=== PATIENT | female | born 1975 | race Hispanic/Latino ===

== ENCOUNTER 2024-02-24 07:26 | Day surgery (SDC) | payer OTHER ==
[2024-02-24 08:28] LABS: MPV 8.9 fL (7.6-11.3); Platelets 348 thou/uL (152-406)
[2024-02-24 08:32] LABS: PT Prothrombin Time 10.6 SECONDS (9.5-12.5); PTT, Activated Partial Thromb 31.1 SECONDS (24.3-36.9); Protime INR 0.96
[2024-02-24 08:33] VITALS: BMI 35.2
[2024-02-24] MEDS ORDERED: Ringers Lactate 1,000 ML IV ONE (08:44)
[2024-02-24 08:47] LABS: Urine Specific Gravity/Preg 1.015 (1.005-1.030)
[2024-02-24] MEDS ORDERED: FLUMAZENIL 0.1 MG/ML (5 mL VIAL) IV ONE (08:56)
[2024-02-24] MEDS ORDERED: MIDAZOLAM HCL 2 MG/2 ML INJ ONE (08:56)
[2024-02-24] MEDS ORDERED: FENTANYL CITR 100 MCG/2 ML ONE (08:57)
[2024-02-24] MEDS ORDERED: NALOXONE HCL 2 MG/2 ML VIAL ONE (08:57)
--- NOTE | 2024-02-24 13:20 | RAD REPORT ---
EXAM DESCRIPTION: RAD - Chest Single View - 02/24/2024 1:11 pm CLINICAL HISTORY: 2 HOURS POST LUNG BIOPSY Chest pain. COMPARISON: Lung Biopsy Perc w/CT dated 02/24/2024 FINDINGS: Portable technique limits examination quality. The lungs are grossly clear. No evidence of pneumothorax. The heart is normal in size. No displaced f ractures. IMPRESSION: No acute intrathoracic process suspected.
[2024-02-24 14:06] VITALS: BP 128/72; TEMP 97.2; O2SAT 100
--- NOTE | 2024-02-24 14:31 | RAD REPORT ---
EXAM DESCRIPTION: CT - Lung Biopsy Perc w/CT - 02/24/2024 11:18 am CLINICAL HISTORY: C50.812, R59.0, , Z78.3, I10 COMPARISON: Chest Single View dated 02/24/2024 FINDINGS: Preoperative diagnosis: Suspicious right lower lobe nodule. Post operative diagnosis: Same Conscious Sedation: 75 mcg fentanyl, and 0.5 milligram ever side were administered intravenously. Tot al sedation time: 1 hour. Patient was continuously monitored by nursing staff. Contrast used: NONE Estimated blood loss: less than 5 mL Specimens: As below The patient was placed in a supine position on the table and the upper right back area was prepped an d draped in the usual sterile fashion. 1% lidocaine was infiltrated into the subcutaneous tissues for local anesthesia. Under computed tomographic guidance, a 17 gauge introducer was advanced into the n odule, today measuring approximately 6 mm. Subsequently, an 18 gauge, 20 mm throw core biopsy gun was advanced into the lesion and 4 tissue cores were obtained. Sampling was technically challenging due to small size of the lesion. The introducer needle was removed following introduction of surgical foa m, to reduce the incidence of pneumothorax. Postprocedure imaging demonstrated trace anti dependent pneumothorax particularly in the lower chest. Samples were given to pathology for analysis. The patient tolerated the procedure without immediate complication and transferred to the recovery room in stable condition. Postprocedural radiographs wer e obtained to evaluate for the pneumothorax. IMPRESSION: Technically challenging but ultimately successful CT-guided biopsy of a small right lowe r lobe nodule. Trace under dependent pneumothorax along the lower chest was seen following the proced ure. All CT scans are performed using dose optimization technique as appropriate and may include automated exposure control or mA/KV adjustment according to patient size.
== END 2024-02-24 13:40 | disposition home or self-care (01) ==
LOC: DS 07:26
PROVIDERS: ATTEND Internal Medicine
PROC: 0BBF3ZX Excision of Right Lower Lung Lobe, Percutaneous Approach, Diagnostic (ICD-10-PCS; principal; 2024-02-24)
DX: R91.1 Solitary pulmonary nodule (principal); C50.812 Malignant neoplasm of overlapping sites of left female breast; R59.0 Localized enlarged lymph nodes; I10 Essential (primary) hypertension; Z80.3 Family history of malignant neoplasm of breast
CPT/HCPCS: 32408; 36415; 81025; 85049; 85610; 88305; 85730; 77012; 71045; J2250; J3010; J7120; J2310

== ENCOUNTER 2024-03-04 11:31 | Day surgery (SDC) | payer OTHER ==
[2024-03-03 14:24] LABS: Anion Gap 7.5 mEq/L (5.0-15.0); Potassium 3.5 mEq/L (3.5-5.1)
[2024-03-04] MEDS: Ringers Lactate 1,000 ML IV ONE (12:28)
[2024-03-04] MEDS ORDERED: MIDAZOLAM HCL 2 MG/2 ML INJ ONE (15:25)
[2024-03-04] MEDS ORDERED: FENTANYL CITR 100 MCG/2 ML ONE (15:25)
[2024-03-04] MEDS ORDERED: LIDOCAINE 1% MPF 5 ML VIAL ONE (15:25)
[2024-03-04] MEDS ORDERED: ONDANSETRON 4 MG/2 ML VIAL ONE (15:25)
[2024-03-04] MEDS ORDERED: propofoL 200 MG/20 ML VIAL IV ONE (15:25)
[2024-03-04] MEDS: CEFAZOLIN SODIUM 2 GM/VIAL ONE (16:57)
[2024-03-04] MEDS: BUPIVACAINE 0.25% PF 10 ML VIAL ONE (16:59)
[2024-03-04] MEDS: HEPARIN 5000 UNIT/ML 1 ML VIAL ONE (17:09)
--- NOTE | 2024-03-04 17:26 | P.OP ---
Preoperative diagnosis: Need for Chemotherapy Port Postoperative diagnosis: Need for Chemotherapy Port Primary procedure: Placement of Chemotherapy Port Secondary procedure: Ultrasound, Flouroscopy and microintroducer used Anesthesia: GETA + Local Estimated blood loss: <5cc Specimen: none Findings: Port @ confluence of SVC Complications: None Drain(s): Urinary catheter Implants: Bard Port a Cath Transferred to: Recovery Room Condition: Good
[2024-03-04 18:16] VITALS: O2SAT 97
--- NOTE | 2024-03-04 18:25 | RAD REPORT ---
EXAM DESCRIPTION: [place] Single View03/04/2024 6:11 pm CLINICAL HISTORY: Device placement/central venous catheter placement IMPRESSION: Central venous catheter with its tip in the superior vena cava No pneumothorax
--- NOTE | 2024-03-04 18:46 | RAD REPORT ---
EXAM DESCRIPTION: RAD - Fluoroscopy <1 Hour - 03/04/2024 6:29 pm CLINICAL HISTORY: Device placement central venous catheter placement FINDINGS: A central venous catheter was placed into the superior vena cava. 15 fluoroscopic spot im ages are submitted. Fluoroscopy time .2 minutes The examination was performed by Dr. Landin
[2024-03-04 18:59] VITALS: BP 111/79; TEMP 96.9
[2024-03-04] MEDS: HYDROCODONE/APAP 7.5/325 MG TAB ONE (19:00)
--- NOTE | 2024-03-05 04:29 | OP ---
Date of Procedure: 03/04/2024 Surgeon: Karlos Landin MD, Preoperative Diagnosis: Need for chemotherapy. Postoperative Diagnosis: Need for chemotherapy. Procedure Performed: Placement of chemotherapy port using ultrasound and fluoroscopic guidance with a micro introducer set into right internal jugular vein. Anesthesia: General endotracheal plus local 0.25% Marcaine without epinephrine. Estimated Blood Loss: Less than 5 cc. Specimens: None. Findings: Was located at the confluence of superior vena cava and the port was placed. Complications: None. Implants: Bard Port-A-Cath. Disposition: The patient was transferred to recovery room in good condition. Brief History Of Present Illness: The patient is a 48-year-old female, who was noted to have a recen t diagnosis of breast cancer. As such, we discussed preoperative chemotherapy with the Oncology Team and as such, the patient has opted to initiate neoadjuvant chemotherapy. Procedure In Detail: After informed consent was obtained, the patient was brought to the operating r oom, prepped and draped in the usual sterile fashion. After adequate anesthesia was achieved, the pa tient was placed in steep Trendelenburg position. I used ultrasound guidance to interrogate the righ t internal jugular vein, was found to be patent, and a good location for placement of the catheter. I cannulated the right internal jugular vein after anesthetizing skin appropriately with a micro intr oducer needle at this point under direct visualization and using ultrasound guidance. At this point, the microwire was advanced into the confluence of superior vena cava. I then made a small chase inci ap overlying the insertion site after the fluoroscopic guidance confirmed the confluence of the SVC with microwire tip. The micro introducer sheath was placed. At this point, I confirmed position on ce again under fluoroscopic guidance and removed the microwire and advanced the standard wire into th e right atrium. This was once again confirmed using fluoroscopic guidance. At this point, the melvin ter wire was secured and I located the spot on the chest wall on the right infraclavicular position a nd anesthetized the skin including the entire tract to the insertion site using 0.25% Marcaine withou t epinephrine. I then made an incision overlying the skin and dissected down to the prepectoral fasc ia removing adipose tissue to allow for access to the port. At this point, I used a tunneling device to bring the port into the insertion site and using a tunneling device without evidence of complicat ion. I then placed the introducer sheath after sequential dilatation under fluoroscopic guidance usi barbara Seldinger technique. I then placed the introducer sheath after the microwire introducer sheath wa s removed and placed the catheter into the introducer sheath removing the sheath at this point under fluoroscopic guidance. I then pulled back the catheter to the confluence of the SVC under fluoroscop ic guidance. At this point, I attached the lock collar around the catheter at the chest wall site an d secured the catheter to this point using the lock collar to secure it. At this point, it flushed q uite easily. Fluoroscopic guidance once again was confirmed with good position of the catheter in th e subcutaneous port. At this point, the subcutaneous port was attached to the chest wall at the prep ectoral fascia using interrupted 2-0 Prolene sutures and the area was copiously irrigated at this poi nt and suctioned out to complete dry. At this point, I packed the catheter with heparin super flush with good results. At this point, the patient was taken out of steep Trendelenburg position. The de ep dermal planes were closed using interrupted 3-0 Vicryl sutures. Skin was closed with a 4-0 Monocr yl in a running fashion and Dermabond placed over top. I also closed the insertion site with a singl e interrupted 3-0 nylon suture and a sterile dressing placed over top. The patient tolerated the pro cedure without incident or complication and transferred to PACU in good condition. All counts were correct at the end of the case. DIONE/ALEJANDRAL Voice ID: [id number] Report ID: [id number]
--- NOTE | 2024-03-07 13:31 | EKG ---
Test Date: 2024-03-03 Test Time: 13:44:06 Java Tech Lead: CAPRICE MEASUREMENT RESULTS: Intervals: Rate: 64 NE: 168 QRSD: 88 QT: 440 QTc: 453 [place]: P: 35 NE: 168 QRS: -3 T: 14 INTERPRETIVE STATEMENTS: Normal sinus rhythm Normal ECG No previous ECG available for comparison Electronically Signed On 03-07-24 13:20:15 CDT by Gal Maldonado
== END 2024-03-04 19:15 | disposition home or self-care (01) ==
LOC: OR 11:31
PROVIDERS: ATTEND Surgery
PROC: 0JH60WZ Insertion of Totally Implantable Vascular Access Device into Chest Subcutaneous Tissue and Fascia, Open Approach (ICD-10-PCS; principal; 2024-03-04 14:45)
DX: C50.912 Malignant neoplasm of unspecified site of left female breast (principal); C50.412 Malignant neoplasm of upper-outer quadrant of left female breast; C50.612 Malignant neoplasm of axillary tail of left female breast; I10 Essential (primary) hypertension
CPT/HCPCS: 93005; 80048; 36415; 84703; 71045; 76000; 36561; J1644 ×2; J2704; J2001; J2250; J3010; J2405; J7120; C1788

== ENCOUNTER 2024-10-12 08:58 | Day surgery (SDC) | payer OTHER ==
[2024-10-07 14:20] LABS: PTT, Activated Partial Thromb 35.1 SECONDS (24.3-36.9); Protime INR 1.17
[2024-10-12] MEDS: Ringers Lactate 1,000 ML IV ONE ×4 (09:40→19:09)
[2024-10-12 10:30] LABS: Absolute Eosinophils 0.1 K/uL (0-0.5); Absolute Lymphocytes (CBC) 1.6 K/uL (0.7-4.9); Absolute Monocytes 0.4 K/uL (0.1-1.3); Absolute Neutrophil 1.7 K/uL (1.8-8.0); Basophils % 0.3 % (0-1.3); Eosinophils % 2.5 % (0-4.4); Hematocrit 40.5 % (36.0-45.0); Hemoglobin 13.8 g/dL (12.0-15.0); Lymphocytes % 42.6 % (15.3-44.8); MCH 29.8 pg (27.0-35.0); MCHC 34.1 g/dL (32.0-36.0); MCV 87.4 fL (80-100); MPV 9.2 fL (7.6-11.3); Monocytes % 9.8 % (3.3-12.3); Neutrophils % 44.8 % (41.7-73.7); Nucleated Red Blood Cells % 0.5 % (0-0); Platelets 321 thou/uL (152-406); RBC Red Blood Cell Count 4.64 M/uL (3.86-4.86); Red Cell Distribution Width 13.1 % (12.1-15.2)
[2024-10-12] MEDS ORDERED: dexAMETHasone 10 MG/ML VIAL ONE ×2 (11:12→12:10)
[2024-10-12] MEDS ORDERED: BUPIVACAINE 0.5% PF 10 ML VIAL ONE (11:12)
[2024-10-12] MEDS ORDERED: MIDAZOLAM HCL 2 MG/2 ML INJ ONE (11:12)
[2024-10-12] MEDS ORDERED: EPINEPHRINE 1 MG/ML VIAL ONE (11:12)
[2024-10-12] MEDS ORDERED: FENTANYL CITR 100 MCG/2 ML ONE ×3 (11:12→16:58)
[2024-10-12] MEDS ORDERED: LIDOCAINE 1% MPF 5 ML VIAL ONE (11:12)
[2024-10-12] MEDS ORDERED: BUPIVACAINE 0.25% PF 30 ML VIAL ONE (11:13)
[2024-10-12] MEDS ORDERED: propofoL 200 MG/20 ML VIAL IV ONE (11:46)
[2024-10-12] MEDS ORDERED: LIDOCAINE 2% MPF 5 ML VIAL ONE ×2 (11:47→12:10)
[2024-10-12] MEDS ORDERED: ROCURONIUM 50 MG/5 ML VIAL IV ONE (11:47)
[2024-10-12] MEDS ORDERED: DEXMEDETOMIDINE HCL 200 MCG/2 ML VIAL ONE (11:51)
[2024-10-12] MEDS ORDERED: MAGNESIUM SULFATE 1 gm IVPB 1 GM/100 ML BAG IV ONE (11:51)
[2024-10-12] MEDS: CEFAZOLIN SODIUM 2 GM/VIAL ONE (11:51)
[2024-10-12] MEDS ORDERED: SUCCINYLCHOLINE 20 MG/ML (10 ML) IV ONE (11:52)
[2024-10-12] MEDS ORDERED: KETOROLAC 30 MG/ML INJ ONE (12:10)
[2024-10-12] MEDS ORDERED: KETAMINE HCL IN 0.9 % NACL 50 MG/5 ML SYRINGE IV ONE (12:10)
[2024-10-12] MEDS ORDERED: ONDANSETRON 4 MG/2 ML VIAL ONE (12:10)
[2024-10-12] MEDS: LIDOCAINE HCL/EPINEPHRINE 20 ML MDV ONE (12:29)
[2024-10-12] MEDS ORDERED: Phenylephrine HCl 10 MG/ML 1 ML VIAL ONE (14:14)
--- NOTE | 2024-10-12 17:50 | P.OP ---
Preoperative diagnosis: LEFT Biopsy Proven Breast Cancer Postoperative diagnosis: LEFT Biopsy Proven Breast Cancer Primary procedure: LEFT Modified Radical Mastectomy Secondary procedure: RIGHT Simple / Complete Mastectomy Anesthesia: GETA + Regional Estimated blood loss: 50cc Specimen: LEFT Breast with Axillary Contents, additional node, RIGHT Breast Findings: Palpable nodes in groove between thoracodorsal / long thoracic - adherant Complications: None Drain(s): LAKEISHA drain (10mm Flat - bilateral) Transferred to: Recovery Room Condition: Good
[2024-10-12] MEDS: HYDROMORPHONE HCL 1 MG/ML INJ ONE (18:40)
[2024-10-12 18:43] VITALS: O2SAT 98
[2024-10-12 19:27] VITALS: BP 111/78; TEMP 97.3
[2024-10-12] MEDS ORDERED: HYDROCODONE/APAP 10/325 TAB ONE (19:30)
[2024-10-12] MEDS: HYDROCODONE/APAP 10/325 TAB PO ONE (20:00)
[2024-10-12] MEDS: ONDANSETRON 4 MG/2 ML VIAL ONE (20:08)
--- NOTE | 2024-10-12 23:35 | OP ---
Date of Procedure: 10/12/2024 Surgeon: Karlos Landin MD, Preoperative Diagnosis: Left biopsy-proven breast cancer. Postoperative Diagnosis: Left biopsy-proven breast cancer. Procedures Performed: 1.Left modified radical mastectomy. 2.Right simple/complete mastectomy. Anesthesia: General endotracheal plus regional. Estimated Blood Loss: Approximately 50 cc. Specimens: 1.Left breast with axillary contents. 2.An additional lymph node from the left axilla adjacent to the long thoracic nerve. 3.Left breast. Findings: 1.Palpable lymph nodes in the groove between the thoracodorsal and the long thoracic nerve were evid ent with palpable enlarged lymph nodes with significant adhesions to the groove and to these nervous structures. 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 The cephalic vein was visualized as well as a branch coming off somewhat more proximally than usual anatomic descriptions. Complications: None immediate. Drains: 10 mm flat LAKEISHA drain placed bilaterally. Disposition: The patient was transferred to recovery room in good condition. Procedure In Detail: After informed consent was obtained, the patient was brought to the operating r oom, and prepped and draped in the usual sterile fashion after adequate anesthesia was achieved. I p remarked the patient's breast following the borders of the clavicle, the lateral sternal border, the latissimus dorsi as well as the inframammary crease. In addition, I made teardrop type bilateral inc isions with somewhat a slight extension on the left breast to include the axillary contents and also to include the previous breast mass. After this was demarcated, I made an incision through the left breast initially down through the subcutaneous tissues using a 10 blade circumferentially around the area to dissect out skin flaps. At this point, I dissected out starting superiorly on the left breas t to elevate the superior skin flap, which extended all the way to the inferior border of the clavicl e. I then extended it somewhat medially to lateral to the edge of the sternal border and ultimately moved inferiorly circumferentially around to the border of the rectus muscle at the confluence of the pectoralis rectus confluence. At this point, I also dissected laterally to the latissimus muscle. I then continued the dissection circumferentially removing the breast from the superior aspect and mo ving medially to remove the breast off the medial aspect, and the superior aspect, and the inferior a spect ultimately draping the breast over to allow me to dissect along the lateral border of the pecto ralis major muscle and along the border of the pectoralis minor muscle. I dissected through the clav ipectoral fascia, ultimately into the axillary fascia, and dissected free the space between the pecto ralis major and pectoralis minor. I palpated this area, where Selvin nodes exist and they were not p alpable at this point. As such, I continued to dissect down in the posterior aspect of the pectorali s minor muscle ultimately moving cranially to identify the axillary vein. Interestingly, the axillar y vein had a somewhat unusual presentation and as such, I dissected circumferentially slightly above this to encounter an additional vein, which I dissected back to discover that this was in fact an add itional axillary vein. I stayed on the inferior border of the axillary vein at this point and came a nteriorly to discover the cephalic vein takeoff on the proximal aspect near the coracoid process. Th e level 3 nodes were palpated in this area. I did not palpate any pathologic disease at this point, and as such I only removed a small portion of the fat of this area, so that I could inspect it proper ly, off this ligament was identified at this point, but I did not see any pathologic findings in the level 3 nodes and thus, as such, I chose to stay inferior to the branches of the axillary vein at thi s point. As the patient had a duplicated axillary vein, the thoracodorsal neurovascular bundle appea red to come off the superior branch of the axillary vein rather than the inferior branch. As such, I had to dissect between this plane to allow for visualization of approximately 4 tributaries and the thoracodorsal neurovascular bundle, which was traveling down in this aspect. As I dissected circumfe rentially around this using predominantly blunt dissection with minimal electrocautery, I used the ne rve stimulator device to ensure I ran the entire course of the thoracodorsal neurovascular bundle to ensure its innervation was intact throughout the entire procedure. In addition, when I moved mediall y to the chest wall, I inspected the area and ultimately found the long thoracic in this area. I use d the nerve stimulator also to verify its course and allow for visualization of this. I left the pre pectoral fascia only on the chest wall in this area, but the adipose tissue was swept down. As I con tinued from cranially to caudally removing the axillary contents, including lymph nodes, I palpated s ome enlarged lymph nodes and as I moved down on top of the subscapularis muscle, I encountered an enl arged lymph node, which sat in between the thoracodorsal neurovascular bundle and the long thoracic n erve. There was some adherence to these tissues, which required meticulous dissection as they were i n very close apposition and could not be easily for some reason. As such, I spent an amoun t of time using the nerve stimulator to ensure that the dissection continued without injury to the ne rve and the nerve remained intact through its course, as I was able to get this tissue out. After I teased out all the tissue and exposed, space between the thoracodorsal neurovascular bundle and long thoracic nerve was visualized with the subscapularis muscle visualized in the field. I dissected to move the axillary contents down. I moved laterally around the thoracodorsal neurovascular bundle as there was some palpable region in this area too. Uncertain if there were axillary lymph nodes positi ve in this region. As such, I took an additional amount of this tissue all the way to the edge of la tissimus dorsi. As I dissected down, I moved down to remove all of the axillary contents at this poi nt using meticulous dissection. Hemostasis was achieved predominantly after skeletonizing tributarie s off the axillary vein as described using the LigaSure device and ultimately removed the breast in i ts entirety, including the axillary contents attached to this area; however, as I was removing this, there was 1 palpable possible lymph node versus fat globule, which was still adherent to the long tho racic nerve and as such, once again, I performed meticulous dissection of this and sent this as a sep arate specimen. The area was copiously irrigated and all adipose tissue was suctioned out on top usi ng the suction device, and she required minimal hemostasis at this point, I inspected the area and us ed the neurostimulator to once again verify the activity of the nerves, which appeared to be intact a t this point. The medial branch of the pectoral nerve was protected throughout in addition, and the pectoralis muscle had good stimulation using the nerve stimulator as well as all other structures inv olved. As I completed the portion, I then made a separate stab incision in the posterior axilla and brought in a 10 mm flat LAKEISHA drain into the surgical field through the axilla and on the pectoralis inf erior aspect at this point. I secured using a 3-0 nylon and ultimately irrigated the area once again , suctioned out to completely dry, and dried the area and removed all floating adipose tissue at this point, which was minimal at this point. I then inspected for hemostasis, which was achieved. I the n closed the deep dermal plane using interrupted 3-0 Vicryl sutures and the skin was closed with a 4- 0 Monocryl in a running fashion. Dermabond was placed over the top. I then turned my attention to t he other side, which would be the right breast at this point. I re-gowned and gloved at this point, and all instruments were changed at this point. I had the previous markings as previously described and following a teardrop type elliptical incision made a similar skin flap cut using a 10 blade down to the right breast, down to the subcutaneous tissues, ultimately raising the superior flap. There w as a Port-A-Cath in place, which I had left in place as I dissected underneath this plane ultimately leaving a small island of prepectoral fascia for the Port-A-Cath in this place. I dissected superior ly to the clavicle, medial to the border of the sternum, inferiorly to the confluence of the rectus, and pectoralis major muscle wall sparing the inframammary crease and ultimately laterally to the lati ssimus dorsi. After the breast tissue was ligated staying out of the axillary plane and the axillary fascia, which was spared at this point. I then sent the breast off for pathologic examination. Donya hernández stitches were placed prior to removal of both breast contents as they were sent off for patholog ic examination. The area on the right breast was then copiously irrigated. Hemostasis was achieved with minimal electrocautery. In addition, a 10 mm flat LAKEISHA drain was brought in, in a similar fashion through a separate stab incision in the lateral aspect, ultimately bringing it into the breast field . I then closed the deep dermal plane using interrupted 3-0 Vicryl sutures. Skin was closed with a 4-0 Monocryl in a running fashion. Dermabond placed over top. The patient had a drain stitch placed previous to closure, which is a 3-0 nylon additionally. Sterile dressing was then applied after the polymerization of the Dermabond had occurred and a sterile dressing applied. The patient tolerated the procedure without incident or complication, and transferred to PACU in good condition. All counts were correct at the end of the c ase. DIONE/APRIL Voice ID: [id number] Report ID: [id number]
--- NOTE | 2024-10-13 11:40 | EKG ---
Test Date: 2024-10-07 Test Time: 14:22:22 Pencil Maker: LISA MEASUREMENT RESULTS: Intervals: Rate: 107 [place]: 160 QRSD: 88 QT: 388 QTc: 517 [place]: P: 57 [place]: 160 QRS: 35 T: 50 INTERPRETIVE STATEMENTS: Sinus tachycardia Low voltage QRS Borderline ECG Compared to ECG 03/03/2024 13:44:06 Low QRS voltage now present Sinus rhythm no longer present Electronically Signed On 10-13-24 11:38:54 STUDENT RECRUITER by Dm Flaherty
== END 2024-10-12 21:00 | disposition home or self-care (01) ==
LOC: OR 08:58
PROVIDERS: ATTEND Surgery
PROC: 07T60ZZ Resection of Left Axillary Lymphatic, Open Approach (ICD-10-PCS; 2024-10-12)
PROC: 0HTT0ZZ Resection of Right Breast, Open Approach (ICD-10-PCS; 2024-10-12)
PROC: 0HTU0ZZ Resection of Left Breast, Open Approach (ICD-10-PCS; principal; 2024-10-12 12:00)
DX: C77.3 Secondary and unspecified malignant neoplasm of axilla and upper limb lymph nodes (principal); C50.912 Malignant neoplasm of unspecified site of left female breast; N60.22 Fibroadenosis of left breast
CPT/HCPCS: 19307; 19303; 93005; 85025; 80048; 36415 ×2; 86900; 86850; 84703; 85610; 86901; 88305; 88307; 85730; J3475; J2704; J2003 ×3; J2371; J2250; J3010 ×3; J1100 ×2; J0171; J1171; J2405 ×2; J7120 ×4

== ENCOUNTER 2025-07-16 21:34 | Emergency (ER) | payer MEDICAID, OTHER ==
--- OUTSIDE RECORDS SUMMARY | 2025-07-16 21:46 | XMS REPORT | Continuity of Care Document ---
Author Name Unknown Address [address] [place] [address] [facility] Address [address] [place] [address] Care Team Providers Care Value Stream Manager Name Role Phone Maryam Riley Primary Care Physician HANNAH MOSELEY Attending Clinician Unavailable HANNAH MOSELEY Attending Clinician Unavailable MENDOZA GO Attending Clinician Unavailable Pcp-Lab Attending Clinician Unavailable Hannah Moseley PA-C Attending Clinician Mendoza Go MD Attending Clinician [phone] RADIOLOGY Attending Clinician Unavailable BLAKE CHANDLER Attending Clinician Unavailable JAVIER CISNEROS Attending Clinician UnavailJAVIER Langford Attending Clinician Unavaildavin cantor Radiology Attending Clinician Unavailable Javier Cisneros MD Attending Clinician [phone] [facility] Attending Clinician Unavaila sakshi Doctor Unassigned, [place] Attending Clinician U navailDONTAE Elmore Attending Clinician Unavailable Dontae Lopez Attending Clinician [phone] DENICE PENA Attending Clinician UnavailSIMONA Mcclendonitting Clinician Unavailable Payers Payer Name Policy Type Policy Number Effective Date Expirati on Date Source FORMERLY [facility] [id number] 2024 00:00:00 MEDICAID PENDING PENDING 2022 00:00:00 Problems Condition Name Condition Details Condition Category Status Onset Date Resolution Date Last Treatment Date Treating Clinician Comments Source ISABEL (obstructi ve sleep apnea) ISABEL (obstructi ve sleep apnea) Disease Active 2-24 00:00: 00 [facility] Tachycardi a Tachycardi a Disease Active 11-09 00:00: 00 [facility] Primary hypertensi on Primary hypertensi on Disease Active 11-09 00:00: 00 [facility] Obesity (BMI 30-39.9) Obesity (BMI 30-39.9) Disease Active 11-09 00:00: 00 [facility] Malignant neoplasm of female breast, unspecifie d estrogen receptor status, unspecifie d laterality , unspecifie d site of breast Malignant neoplasm of female breast, unspecifie d estrogen receptor status, unspecifie d laterality , unspecifie d site of breast Disease Active 11-09 00:00: 00 [facility] No known active problems No known active problems Disease [facility] Allergies, Adverse Reactions, Alerts Allergy Name Allergy Type Status Severity Reaction(s) Onset Date Inactive Date Treating Clinician Comments Source NO KNOWN ALLERGIE S Drug Class Active [facility] Social History Social Habit Start Date Stop Date Quantity Comments Source ASSERTION Not [facility] use and exposure 2024-11-09 00:00:00 2024-11-09 00:00:00 Smokeless tobacco non-user [facility] History of Social function 2024-11-09 00:00:00 2024-11-09 00:00:00 [facility] Exposure to SARS-CoV-2 (event) 2022-05-19 00:00:00 2022-05-29 19:46:00 Not sure [facility] Sex assigned at 1975 00:00:00 1975 00:00:00 [facility] Smoking Status Start Date Stop Date Source Tobacco smoking consumption unknown [facility] Never smoked tobacco [facility] Medications Ordered Medication Name Filled Medication Name Start Date Stop Date Current Medication? Ordering Clinician Indication Dosage Frequency Signature (SIG) Comments Components Source mirtazapine 7.5 mg tablet 7-06 00:00: 00 Yes 7.5mg Take 1 tablet by mouth in the morning. [facility] propranoloL 40 mg tablet 6-20 00:00: 00 Yes 80mg Take 2 tablets by mouth in the morning and 2 tablets in the evening. [facility] hydroCHLORO thiazide 25 mg tablet 0 6-10 00:00: 00 Yes [id number] 25mg Take 1 tablet by mouth in the morning. [facility] propranoloL 40 mg tablet 10 00:00: 00 04-13 00:00 :00 No 80mg Take 2 tablets by mouth in the morning and 2 tablets in the evening. [facility] levothyroxi ne 50 mcg tablet - 00:00: 00 Yes 50ug Take 1 tablet by mouth every morning. [facility] lisinopriL (ZESTRIL) 40 mg tablet 530 00:00: 00 Yes [id number] 20mg Take 0.5 tablets by mouth in the morning and 0.5 tablets in the evening. [facility] propranoloL 40 mg tablet -30 00:00: 00 04-04 00:00 :00 No 40mg Take 1 tablet by mouth in the morning and 1 tablet in the evening. [facility] lisinopril 20 mg tablet 0 5-15 00:00: 00 Yes 1mg Devang Brown lisinopriL (ZESTRIL) 20 mg tablet 29 00:00: 00 03-24 00:00 :00 No 20mg Take 1 tablet by mouth in the morning and 1 tablet in the evening. [facility] lisinopriL (ZESTRIL) 10 mg tablet - 00:00: 00 02-21 00:00 :00 No [id number] 10mg Take 1 tablet by mouth in the morning and 1 tablet in the evening. [facility] lisinopriL (ZESTRIL) 10 mg tablet 2024- 4-18 00:00: 00 02-14 00:00 :00 No [id number] 10mg Take 1 tablet by mouth in the morning and 1 tablet in the evening. [facility] megestroL 400 mg/10 mL (40 mg/mL) suspension 3- 00:00: 00 07-12 00:00 :00 No 400mg Take 10 mL by mouth in the morning. [facility] metoprolol tartrate 25 mg tablet 12-19 00:00: 00 03-24 00:00 :00 No [id number] 25mg Take 1 tablet by mouth in the morning and 1 tablet in the evening. [facility] lisinopriL (ZESTRIL) 5 mg tablet 12-19 00:00: 00 02-10 00:00 :00 No [id number] 5mg Take 1 tablet by mouth in the morning. [facility] tc 99m-medrona te (DRAXIMAGE MDP-25) injection 27.7 millicurie 12-14 16:45: 00 12-14 19:47 :00 No [id number] 27.7mCi 27.7 millicurie , Intravenou s, ONCE, 1 dose, On Thu12/14/24 at 1045, Routine [facility] ergocalcife rol, vitamin d2, 1,250 mcg (50,000 unit) capsule 12-14 00:00: 00 07-12 00:00 :00 No [facility] gabapentin 300 mg capsule 2 00:00: 00 07-12 00:00 :00 No 300mg Take 1 capsule by mouth in the morning and 1 capsule in the evening. [facility] anastrozole 1 mg tablet 2- 00:00: 00 Yes 1mg Devang Susan Brown metoprolol tartrate 25 mg tablet 2- 00:00: 00 Yes 1mg Devang Susan Brown gabapentin 300 mg capsule 2-10 00:00: 00 Yes 1mg Devang Susan Kevin anastrozole 1 mg tablet 1-29 00:00: 00 Yes 1mg Take 1 tablet by mouth daily [facility] gabapentin 100 mg capsule 11-23 00:00: 00 07-12 00:00 :00 No 100mg Take 1 capsule by mouth in the morning and 1 capsule in the evening. [facility] metoprolol tartrate 25 mg tablet 11-17 14:53: 21 11-17 00:00 :00 No 25mg Take 1 tablet by mouth in the morning and 1 tablet in the evening. [facility] metoprolol tartrate 25 mg tablet 11-17 00:00: 00 12-12 00:00 :00 No [id number] 25mg Take 1 tablet by mouth in the morning and 1 tablet in the evening. [facility] lisinopriL- hydrochloro thiazide 10-12.5 mg per tablet -15 14:27: 40 12-19 00:00 :00 No 1{tbl} Take 1 tablet by mouth in the morning. [facility] gabapentin 100 mg capsule 2023-10 00:00: 00 Yes 1mg Devang Brown lisinopril 10 mg-hydrochl orothiazide 12.5 mg tablet 2023-1018 00:00: 00 Yes 1mg Devang Brown DEXAMETHASO NE 4 MG 03-02 00:00: 00 Yes Devang Brown ONDANSETRON ODT 4 MG TABLET,DISI NTEGRATING 03-02 00:00: 00 Yes Devang Brown TAKE 2 TABLETS BY MOUTH ON DAY 1, THEN 1 TABLET DAILY ON DAYS 2 TO 5. 02-15 00:00: 00 Yes Devang Brown TAKE ONE (1) TO 2 TABLETS BY MOUTH EVERY 6 HOURS NEEDED FOR PAIN. 02-15 00:00: 00 Yes Devang Brown SWISH AND SPIT HALF AN OUNCE BY MOUTH TWICE A DAY FOR THIRTY SECONDS. DO NOT EAT OR RINSE MOUTH OUT IMMEDIATELY AFTER USE. 02-14 00:00: 00 Yes Devang Brown lisinopril 10 mg-hydrochl orothiazide 12.5 mg tablet 2024-0 3-05 00:00: 00 Yes 1mg Devang Brown TAKE 1 TABLET BY MOUTH ONCE DAILY 9-18 00:00: 00 Yes Devang Brown TAKE DIRECTED 7-11 00:00: 00 Yes Devang Brown TAKE 1 TABLET DAILY. 5-02 00:00: 00 03-09 00:00 :00 No [id number] Devang Brown TAKE 1 TABLET DAILY. 2-08 00:00: 00 03-09 00:00 :00 No [id number] Devang Brown TAKE 1 TABLET DAILY. 2021-10 1-10 00:00: 00 03-09 00:00 :00 No [id number] Devang Brown TAKE 1 TABLET DAILY. 2021-10 1-09 00:00: 00 03-09 00:00 :00 No [id number] Devang Brown TAKE 1 TABLET BY MOUTH ONCE DAILY 2021-10 0 00:00: 00 Yes Devang Brown TAKE 1 TAB BY MOUTH DAILY. TAKE THE FIRST 3 ROWS, SKIPPING THE LAST ROW FOR 2 PACKS. TAKE THIRD PACK DIRECTED. 2021-1014 00:00: 00 03-09 00:00 :00 No [id number] Devang Brown TAKE 1 TABLET BY MOUTH ONCE DAILY -12 00:00: 00 03-09 00:00 :00 No Devang Brown TAKE 1 TABLET BY MOUTH ONCE DAILY 18 00:00: 00 Yes Devang Brown TAKE 1 TABLET TWICE DAILY WITH MEALS 05 00:00: 00 Yes [id number] Devang Brown TAKE 1 TAB BY MOUTH DAILY. TAKE THE FIRST 3 ROWS, SKIPPING THE LAST ROW FOR 2 PACKS. TAKE THIRD PACK DIRECTED. -05 00:00: 00 Yes Devang Brown No known medications 04 18:34: 19 No No known medication s [facility] TAKE 1 TABLET TWICE DAILY WITH MEALS - 00:00: 00 Yes [id number] Devang Brown TAKE 1 TABLET BY MOUTH EVERY 8 HOURS 17 00:00: 00 Yes Devang Brown TAKE 10 ML BY MOUTH EVERY 8 HOURS NEEDED 03-11 00:00: 00 Yes Devang Brown TAKE 2 TABLETS BY MOUTH ON DAY 1, AND THEN TAKE 1 TABLET BY MOUTH ONCE A DAY ON DAY 2 THROUGH DAY 5 03-11 00:00: 00 Yes Devang Brown lisinopril 10 mg tablet 2020-10 00:00: 00 Yes 1mg Devang Brown Vital Signs Vital Name Observation Time Observation Value Comments S ource Systolic blood pressure 2025-07-12 14:03:00 129 mm[Hg] [facility] Diastolic blood pressure 2025-07-12 14:03:00 89 mm[Hg] [facility] Heart rate 2025-07-12 14:03:00 70 /min Unive [facility] Body temperature 2025-07-12 14:03:00 36.28 Lois [facility] Respiratory rate 2025-07-12 14:03:00 18 /min [facility] Body height 2025-07-12 14:03:00 162.6 cm [facility] Body weight 2025-07-12 14:03:00 69.809 kg [facility] BMI 2025-07-12 14:03:00 26.42 kg/m2 [facility] Oxygen saturation in Arterial blood by Pulse oximetry 2025-07-12 14:03:00 96 /min [facility] Systolic blood pressure 2025-01-16 17:57:00 133 mm[Hg] [facility] Diastolic blood pressure 2025-01-16 17:57:00 88 mm[Hg] [facility] Heart rate 2025-01-16 17:57:00 72 /min Unive [facility] Respiratory rate 2025-01-16 17:57:00 16 /min [facility] Body height 2025-01-16 17:57:00 162.6 cm [facility] Body weight 2025-01-16 17:57:00 82.373 kg [facility] BMI 2025-01-16 17:57:00 31.17 kg/m2 Univ [facility] Oxygen saturation in Arterial blood by Pulse oximetry 2025-01-16 17:57:00 97 /min [facility] Systolic blood pressure 2024-12-19 19:50:00 127 mm[Hg] [facility] Diastolic blood pressure 2024-12-19 19:50:00 87 mm[Hg] [facility] Heart rate 2024-12-19 19:50:00 89 /min [facility] 2024-12-19 19:50:00 162.6 cm [facility] Body weight 2024-12-19 19:50:00 84.142 kg [facility] BMI 2024-12-19 19:50:00 31.84 kg/m2 [facility] O[facility] saturation in Arterial blood by Pulse oximetry 2024-12-19 19:50:00 97 /min [facility] Systolic blood pressure 2024-11-30 21:02:00 124 mm[Hg] [facility] Diastolic blood pressure 2024-11-30 21:02:00 88 mm[Hg] [facility] Body height 2024-11-30 20:57:00 162.6 cm [facility] Body weight 2024-11-30 20:57:00 89.54 kg Univ [facility] BMI 2024-11-30 20:57:00 33.88 kg/m2 [facility] Oxygen saturation in Arterial blood by Pulse oximetry 2024-11-30 20:57:00 97 /min [facility] Heart rate 2024-11-30 20:57:00 87 /min [facility] Res[facility] rate 2024-11-30 20:57:00 16 /min [facility] Systolic blood pressure 2024-11-09 20:22:00 115 mm[Hg] [facility] Diastolic blood pressure 2024-11-09 20:22:00 80 mm[Hg] [facility] Heart rate 2024-11-09 20:22:00 117 /min [facility] Body height 2024-11-09 20:22:00 165.1 cm [facility] Body weight 2024-11-09 20:22:00 92.307 kg [facility] BMI 2024-11-09 20:22:00 33.86 kg/m2 [facility] Oxygen saturation in Arterial blood by Pulse oximetry 2024-11-09 20:22:00 98 /min [facility] Systolic blood pressure 2022-05-30 00:47:18 150 mm[Hg] [facility] Diastolic blood pressure 2022-05-30 00:47:18 99 mm[Hg] [facility] Heart rate 2022-05-30 00:47:18 76 /min [facility] Respiratory rate 2022-05-30 00:47:18 18 /min [facility] Oxygen saturation in Arterial blood by Pulse oximetry 2022-05-30 00:47:18 98 /min [facility] Body temperature 2022-05-29 23:30:00 37.5 Lois [facility] Body height 2022-05-29 23:30:00 165.1 cm [facility] Body weight 2022-05-29 23:30:00 117.482 kg [facility] BMI 2022-05-29 23:30:00 43.10 kg/m2 [facility] BP Systolic 2025-03-14 17:11:00 148 mm[Hg] Step hen F Kevin BP Diastolic 2025-03-14 17:11:00 93 mm[Hg] Kris phen F Kevin Weight Measured 2025-03-14 17:11:00 177.00 pounds Devang F Kevin Height Measured 2025-03-14 17:11:00 65.00 inches Devang F Kevin Body Temperature 2025-03-14 17:11:00 97.60 degrees Devang F Kevin Heart Rate 2025-03-14 17:11:00 98.00 /min Demetrice en F Kevin Respiratory Rate 2025-03-14 17:11:00 18.00 /min Devang F Kevin BP Systolic 2025-03-09 09:47:00 150 mm[Hg] Step hen F Kevin BP Diastolic 2025-03-09 09:47:00 90 mm[Hg] Kris phen F Kevin Weight Measured 2025-03-09 09:47:00 178.00 pounds Devang F Kevin Height Measured 2025-03-09 09:47:00 65.00 inches Devang F Kevin Body Temperature 2025-03-09 09:47:00 97.90 degrees Devang F Kevin Heart Rate 2025-03-09 09:47:00 89.00 /min Demetrice en F Kevin Respiratory Rate 2025-03-09 09:47:00 18.00 /min Devang F Kevin BP Systolic 2024-12-05 13:35:00 155 mm[Hg] Step hen F Kevin BP Diastolic 2024-12-05 13:35:00 103 mm[Hg] Kris phen F Kevin Weight Measured 2024-12-05 13:35:00 196.40 pounds Devang F Kevin Height Measured 2024-12-05 13:35:00 65.00 inches Devang F Kevin Body Temperature 2024-12-05 13:35:00 97.80 degrees Devang F Kevin Heart Rate 2024-12-05 13:35:00 82.00 /min Demetrice en F Kevin Respiratory Rate 2024-12-05 13:35:00 18.00 /min Devang F Kevin BP Systolic 2024-10-04 10:55:00 109 mm[Hg] Step hen F Kevin BP Diastolic 2024-10-04 10:55:00 72 mm[Hg] Kris phen F Kevin Weight Measured 2024-10-04 10:55:00 225.00 pounds Devang F Kevin Height Measured 2024-10-04 10:55:00 65.00 inches Devang F Kevin Body Temperature 2024-10-04 10:55:00 97.80 degrees Devang F Kevin Heart Rate 2024-10-04 10:55:00 123.00 /min Step hen F Kevin Respiratory Rate 2024-10-04 10:55:00 17.00 /min Devang F Kevin Height Measured 2024-09-12 09:41:00 65.00 inches Devang F Kevin Body Temperature 2024-09-12 09:41:00 97.60 degrees Devang F Kevin Heart Rate 2024-09-12 09:41:00 119.00 /min Step hen F Kevin Respiratory Rate 2024-09-12 09:41:00 19.00 /min Devang F Kevin BP Systolic 2024-09-12 09:41:00 135 mm[Hg] Step hen F Kevin BP Diastolic 2024-09-12 09:41:00 81 mm[Hg] Kris phen F Kevin Weight Measured 2024-09-12 09:41:00 232.60 pounds Devang F Kevin BP Systolic 2024-01-29 16:02:00 138 mm[Hg] Step hen F Kevin BP Diastolic 2024-01-29 16:02:00 91 mm[Hg] Kris phen F Kevin Weight Measured 2024-01-29 16:02:00 223.50 pounds Devang F Kevin Height Measured 2024-01-29 16:02:00 65.00 inches Devang F Kevin Body Temperature 2024-01-29 16:02:00 Devang F Kevin Heart Rate 2024-01-29 16:02:00 76.00 /min Demetrice en F Kevin Respiratory Rate 2024-01-29 16:02:00 Devang F Kevin BP Systolic 2023-12-31 10:27:00 138 mm[Hg] Step hen F Kevin BP Diastolic 2023-12-31 10:27:00 88 mm[Hg] Kris phen F Kevin Weight Measured 2023-12-31 10:27:00 222.60 pounds Devang F Kevin Height Measured 2023-12-31 10:27:00 65.00 inches Devang F Kevin Body Temperature 2023-12-31 10:27:00 98.60 degrees Devang F Kevin Heart Rate 2023-12-31 10:27:00 Demetrice en F Kevin Respiratory Rate 2023-12-31 10:27:00 18.00 /min Devang F Kevin BP Systolic 2023-12-29 13:30:00 145 mm[Hg] Step hen F Kevin BP Diastolic 2023-12-29 13:30:00 90 mm[Hg] Kris phen F Kevin Weight Measured 2023-12-29 13:30:00 227.80 pounds Devang F Kevin Height Measured 2023-12-29 13:30:00 65.00 inches Devang F Kevin Body Temperature 2023-12-29 13:30:00 98.10 degrees Devang F Kevin Heart Rate 2023-12-29 13:30:00 Demetrice en F Kevin Respiratory Rate 2023-12-29 13:30:00 18.00 /min Devang F Kevin BP Systolic 2023-02-24 08:06:00 132 mm[Hg] Step hen F Kevin BP Diastolic 2023-02-24 08:06:00 86 mm[Hg] Kris phen F Kevin Weight Measured 2023-02-24 08:06:00 227.20 pounds Devang F Kevin Height Measured 2023-02-24 08:06:00 65.00 inches Devang F Kevin Body Temperature 2023-02-24 08:06:00 98.00 degrees Devang F Kevin Heart Rate 2023-02-24 08:06:00 Demetrice en F Kevin Respiratory Rate 2023-02-24 08:06:00 Devang F Kevin BP Systolic 2022-12-03 14:01:00 152 mm[Hg] Step hen F Kevin BP Diastolic 2022-12-03 14:01:00 82 mm[Hg] Kris phen F Keivn Weight Measured 2022-12-03 14:01:00 240.00 pounds Devang F Kevin Height Measured 2022-12-03 14:01:00 65.00 inches Devang F Kevin Body Temperature 2022-12-03 14:01:00 98.20 degrees Devang F Kevin Heart Rate 2022-12-03 14:01:00 92.00 /min Demetrice en F Kevin Respiratory Rate 2022-12-03 14:01:00 Devang F Kevin BP Systolic 2022-09-04 13:51:00 131 mm[Hg] Step hen F Kevin BP Diastolic 2022-09-04 13:51:00 85 mm[Hg] Kris phen F Kevin Weight Measured 2022-09-04 13:51:00 237.40 pounds Devang F Kevin Height Measured 2022-09-04 13:51:00 65.00 inches Devang F Kevin Body Temperature 2022-09-04 13:51:00 98.00 degrees Devang F Kevin Heart Rate 2022-09-04 13:51:00 83.00 /min Demetrice en F Kevin Respiratory Rate 2022-09-04 13:51:00 Devang F Kevin BP Systolic 2022-09-03 14:49:00 133 mm[Hg] Step hen F Kevin BP Diastolic 2022-09-03 14:49:00 88 mm[Hg] Kris phen F Kevin Weight Measured 2022-09-03 14:49:00 238.60 pounds Devang F Kevin Height Measured 2022-09-03 14:49:00 65.00 inches Devang F Kevin Body Temperature 2022-09-03 14:49:00 97.70 degrees Devang F Kevin Heart Rate 2022-09-03 14:49:00 87.00 /min Demetrice en F Kevin Respiratory Rate 2022-09-03 14:49:00 18.00 /min Devang F Kevin BP Systolic 2022-08-08 09:23:00 145 mm[Hg] Step hen F Kevin BP Diastolic 2022-08-08 09:23:00 97 mm[Hg] Kris phen F Kevin Weight Measured 2022-08-08 09:23:00 249.20 pounds Devang F Kevin Height Measured 2022-08-08 09:23:00 65.00 inches Devang F Kevin Body Temperature 2022-08-08 09:23:00 98.30 degrees Devang F Kevin Heart Rate 2022-08-08 09:23:00 100.00 /min Step hen F Kevin Respiratory Rate 2022-08-08 09:23:00 Devang F Kevin BP Systolic 2022-08-06 08:14:00 149 mm[Hg] Step hen F Kevin BP Diastolic 2022-08-06 08:14:00 90 mm[Hg] Kris phen F Kevin Weight Measured 2022-08-06 08:14:00 250.00 pounds Devang F Kevin Height Measured 2022-08-06 08:14:00 65.00 inches Devang F Kevin Body Temperature 2022-08-06 08:14:00 97.80 degrees Devang F Kevin Heart Rate 2022-08-06 08:14:00 88.00 /min Demetrice en F Kevin Respiratory Rate 2022-08-06 08:14:00 17.00 /min Devang F Kevin Procedures Procedure Date / Time Performed Performing Clinician Source URINALYSIS 2025-07-12 15:12:00 Hannah Moseley [facility] PROTEIN CREAT RATIO URINE RANDOM 2025-07-12 15:12:00 Hannah Moseley [facility] RHEUMATOID FACTOR 2025-07-12 15:00:00 Hannah Moseley [facility] C4 COMPLEMENT 2025-07-12 15:00:00 Moseley, Hannah A [facility] COMP. METABOLIC PANEL ([id number]) 2025-07-12 15:00:00 Hannah Moseley [facility] CBC WITH DIFF 2025-07-12 15:00:00 Hannah Moseley [facility] G6PD SCREENING TEST 2025-07-12 15:00:00 Hannah Moseley [facility] ANTI-NUCLEAR ANTIBODY SCREEN 2025-07-12 15:00:00 Hannah Moseley [facility] ANTI-CENTROMERE B 2025-07-12 15:00:00 Hannah Moseley [facility] ANTI-SSA(RO) 2025-07-12 15:00:00 Hannah Moseley [facility] ANTI-DOUBLE STRANDED DNA 2025-07-12 15:00:00 Hannah Moseley [facility] NM BONE WHOLE BODY 2024-12-14 19:45:00 Requisition, Pa per [facility] NM BONE WHOLE BODY 2024-12-14 19:45:00 Requisition, Pa per [facility] SLEEP LAB RESULTS 2024-11-23 22:21:18 Mendoza Go [facility] SLEEP STUDY DATA REPORT 2024-11-18 20:44:23 Doct or Unassigned, [place] [facility] SLEEP STUDY DATA REPORT 2024-11-18 20:43:37 Doct or Unassigned, [place] [facility] CBC WITH DIFF 2022-05-30 00:01:00 Dontae [facility] [id number] Endometrial Bx W/wo Endocervix Bx W/o Dilat Spx 2022-05-30 00:00:00 Devang Brown NOTICE OF PRIVACY PRACTICES 2022-05-29 23:20:23 Doctor Unassigned, [place] [facility] CONSENT/REFUSAL FOR DIAGNOSIS AND TREATMENT 2022-05-29 23:18:30 Doctor Unassigned, [place] [facility] Encounters Start Date/Time End Date/Time Encounter Type Admission Type Attending [facility] Care Facility Care Department Encounter ID Source 2025-07-19 13:00:00 2025-07-19 13:00:00 Outpatient R MENDOZA GO [facility] [id number] [facility] 2025-07-12 10:45:00 2025-07-12 11:00:00 Policewoman Visit R Pcp-Lab Hannah Moseley [facility] [id number] 350.1.13.10 [id number] [id number] [facility] 2025-07-12 09:15:00 2025-07-12 09:36:14 Office Visit Hannah Del Rosario [facility] [id number] 350.1.13.10 4.2.7.2.686 [id number] [facility] 2025-05-02 00:00:00 2025-05-02 13:40:59 Telephone [facility] [id number] 350.1.13.10 4.2.7.2.686 [id number] [facility] 2025-04-17 00:00:00 2025-04-17 15:16:06 Telephone [facility] [id number] 350.1.13.10 4.2.7.2.686 [id number] [facility] 2025-04-13 00:00:00 2025-04-14 16:55:28 Refill [facility] [id number] 350.1.13.10 4.2.7.2.686 [id number] [facility] 2025-04-04 00:00:00 2025-04-04 16:30:27 Telephone [facility] [id number] 350.1.13.10 4.2.7.2.686 [id number] [facility] 2025-04-03 00:00:00 2025-04-04 08:45:50 [facility] [id number] 350.1.13.10 4.2.7.2.686 [id number] [facility] 2025-03-24 00:00:00 2025-03-28 13:24:47 [facility] [id number] 350.1.13.10 4.2.7.2.686 [id number] [facility] 2025-03-24 00:00:00 2025-03-24 14:58:18 [facility] [id number] 350.1.13.10 4.2.7.2.686 [id number] [facility] 2025-02-15 00:00:00 2025-03-18 18:14:54 [facility] [id number] 350.1.13.10 4.2.7.2.686 [id number] [facility] 2025-03-14 17:07:46 2025-03-14 17:07:46 Outpatient SFA S[facility] [id number] Devang Brown 2025-03-14 00:00:00 2025-03-14 00:00:00 Outpatient Visit SFA [id number] Devang Brown 2025-03-09 16:15:00 2025-03-09 23:59:00 [facility] 1.2.840.114 350.1.13.10 4.2.7.2.686 [id number] [facility] 2025-03-09 09:47:14 2025-03-09 09:47:14 Outpatient SFA [facility] [id number] Devang Brown 2025-03-09 00:00:00 2025-03-09 00:00:00 Outpatient Visit [facility] [id number] Devang Brown 2025-02-27 00:00:00 2025-02-27 14:23:37 Telephone Gabriele [facility] 1.2.840.114 350.1.13.10 4.2.7.2.686 [id number] [facility] 2025-02-21 00:00:00 2025-02-21 16:41:50 Telephone Gabriele [facility] 1.2.840.114 350.1.13.10 4.2.7.2.686 [id number] [facility] 2025-02-14 00:00:00 2025-02-14 14:01:57 Telephone Gabriele [facility] 1.2.840.114 350.1.13.10 4.2.7.2.686 [id number] [facility] 2025-02-08 00:00:00 2025-02-08 11:16:00 Telephone Gabriele [facility] 1.2.840.114 350.1.13.10 4.2.7.2.686 [id number] [facility] 2025-01-27 20:00:00 2025-01-27 20:00:00 Outpatient R [facility] [id number] [facility] 2025-01-25 20:00:00 2025-01-25 20:00:00 Outpatient R JAVIER CISNEROS STRAHIL [facility] [id number] [facility] 2025-01-16 13:00:00 2025-01-16 13:08:40 Outpatient R CASIMIRO [facility] [id number] [facility] 2025-01-16 13:00:00 2025-01-16 13:08:40 [facility] 1.2.840.114 350.1.13.10 4.2.7.2.686 [id number] [facility] 2025-01-05 09:25:35 2025-01-05 09:25:35 Outpatient [place] [place] [id number] Devang Brown 2024-12-19 14:50:17 2024-12-19 14:50:17 Outpatient [facility] [place] [id number] Devang Davis Kevin 2024-12-19 13:20:00 2024-12-19 14:17:45 [facility] 1.2.840.114 350.1.13.10 4.2.7.2.686 [id number] [facility] 2024-12-19 13:20:00 2024-12-19 14:17:45 Outpatient R MENDOZA GO [facility] [id number] [facility] 2024-12-14 10:26:39 2024-12-14 23:59:00 Hospital Encounter Radiology Radiology [facility] 1.2.840.114 350.1.13.10 4.2.7.2.686 [id number] [facility] 2024-12-14 10:26:20 2024-12-14 23:59:00 Outpatient R RADIOLOGY [facility] [id number] [facility] 2024-12-14 10:26:20 2024-12-14 23:59:00 Hospital Encounter Radiology Radiology [facility] 1.2.840.114 350.1.13.10 4.2.7.2.686 [id number] [facility] 2024-12-13 14:27:37 2024-12-13 14:27:37 Outpatient SFA [facility] [id number] Devang Brown 2024-12-12 00:00:00 2024-12-12 11:42:12 Telephone Mendoza Go [facility] 1.2.840.114 350.1.13.10 4.2.7.2.686 [id number] [facility] 2024-11-23 00:00:00 2024-12-10 06:14:01 Orders Only Mendoza Go [facility] 1.2.840.114 350.1.13.10 4.2.7.2.686 [id number] [facility] 2024-12-05 13:23:50 2024-12-05 13:23:50 Outpatient SFA [facility] [id number] Devang Brown 2024-12-05 00:00:00 2024-12-05 00:00:00 Outpatient Visit [facility] [id number] Devang Brown 2024-11-30 15:00:00 2024-11-30 15:30:00 Office Visit Javier Cisneros [facility] 1.2.840.114 350.1.13.10 4.2.7.2.686 [id number] [facility] 2024-11-30 15:00:00 2024-11-30 15:00:00 Outpatient R JAVIER CISNEROS STRAHIL [facility] [id number] [facility] 2024-11-24 00:00:00 2024-11-24 09:19:07 [facility] 1.2.840.114 350.1.13.10 4.2.7.2.686 [id number] [facility] 2024-11-17 13:30:00 2024-11-18 07:47:51 Outpatient R DELMER CISNEROSPriscila CASTROSAVANNAH ROSAGAPriscila [facility] [id number] [facility] 2024-11-17 13:30:00 2024-11-18 07:47:51 Policewoman Visit [facility] Savannah Cisneroscharlotte [facility] 1.2.840.114 350.1.13.10 4.2.7.2.686 [id number] [facility] 2024-11-17 00:00:00 2024-11-17 15:20:25 Telephone Gabriele [facility] 1.2.840.114 350.1.13.10 4.2.7.2.686 [id number] [facility] 2024-11-15 12:00:00 2024-11-15 12:00:00 Outpatient R [facility] [id number] [facility] 2024-11-09 14:20:00 2024-11-09 14:53:50 [facility] [id number] [facility] 2024-11-09 14:20:00 2024-11-09 14:53:50 Office Visit Gabriele [facility] 1.2.840.114 350.1.13.10 4.2.7.2.686 [id number] [facility] 2024-10-04 10:44:02 2024-10-04 10:44:02 Outpatient SFA [facility] [id number] Devang Brown 2024-10-04 00:00:00 2024-10-04 00:00:00 Outpatient Visit [facility] [id number] Devang Brown 2024-09-12 09:32:34 2024-09-12 09:32:34 Outpatient SFA [facility] [id number] Devang Brown 2024-09-12 00:00:00 2024-09-12 00:00:00 Outpatient Visit [facility] [id number] Devang Brown 2024-01-28 00:00:00 2024-03-05 18:13:52 Patient Secure Msg Doctor Unassigned, [place] [facility] ..840.114 350.1.13.10 4.2.7.2.686 [id number] [facility] 2024-02-04 08:56:46 2024-02-04 08:56:46 Outpatient [place] [id number] Devang Brown 2024-01-29 15:57:24 2024-01-29 15:57:24 Outpatient [place] [id number] Devang Davis Kevin 2023-12-31 10:26:56 2023-12-31 10:26:56 Outpatient [place] [id number] Devang Brown 2022-05-29 18:34:00 2022-05-29 19:58:00 Emergency X DONTAE CHANEL [facility] ERT [id number] [facility] 2022-05-29 18:34:00 2022-05-29 19:58:00 Emergency Dontae Chanel [facility] 1..840.114 350.1.13.10 4.2.7.2.686 [id number] [facility] 2019-12-30 18:57:49 2019-12-30 18:57:49 Emergency X DENICE PENA [facility] ERT [id number] [facility] Results Test Description Test Time Test Comments Results Result Co mments Source [facility] Stranded [id number] 14:34:48* Test Item Value Reference Range Interpretation Comme nts ANTI-DSDNA (test code = 7745737668) 1 0.0-10.0 LO (test code = LO) Negative ? ?< or = 4 IU/mLPositive ? ? ?> or = 10 IU/mLIndeterminate ?5-9 IU/mL Lab Interpretation (test code = 02511-9) Normal [facility]-Ttflgyiowbhdtottj9145-25-27 14:34:48* Test Item Value Reference Range Interpretation Comme nts Anti-Ribonucleoprotein (test code = 1401428596) Negative Negative LO (test code = LO) Positive - Antibod y detected.Negative - No antibody detected. Lab Interpretation (test code = 69638-0) [facility](SM)2025-07-13 14:34:48* Test Item Value Reference Range Interpretation Comme nts Anti-Valdez (test code = 0644017170) Negative Negative LO (test code = LO) Positive - Antibod y detected.Negative - No antibody detected. Lab Interpretation (test code = 87810-8) Normal [facility] [id number] 14:34:48* Test Item Value Reference Range Interpretation Comme nts ANTI-CENTR (test code = 6570649903) Negative Negative LO (test code = LO) Positive - Antibod y detected.Negative - No antibody detected. Lab Interpretation (test code = 23956-9) [facility]-SCL-784078-08-50 14:34:48* Test Item Value Reference Range Interpretation Comme nts ANTI-SCL70 (test code = 7376497644) Negative Negative LO (test code = LO) Positive - Antibod y detected.Negative - No antibody detected. Lab Interpretation (test code = 07847-4) [facility](RO)2025-07-13 14:34:48* Test Item Value Reference Range Interpretation Comme nts ANTI-SSA(RO) (test code = 1606421166) Negative Negative LO (test code = LO) Positive - Antibod y detected.Negative - No antibody detected. Lab Interpretation (test code = 00023-2) [facility](LA)2025-07-13 14:34:48* Test Item Value Reference Range Interpretation Comme nts Anti-SSB(LA) (test code = 5334380048) Negative Negative LO (test code = LO) Positive - Antibod y detected.Negative - No antibody detected. Lab Interpretation (test code = 44874-0) Normal [facility] HospitalG6pd Screening Dmoq4199-69-03 14:02:03* Test Item Value Reference Range Interpretation Comme nts G6PD SCREEN (test code = 2546819670) Normal Normal LO (test code = LO) Normal G6PD activity. ?No evidence of G6PD deficiency. Lab Interpretation (test code = 18008-8) Normal [facility] HospitalC4 Kfbfedfcbd9946-85-26 19:37:21* Test Item Value Reference Range Interpretation Comme nts C4 (test code = 5819820719) 20 mg/dL 20-59 Lab Interpretation (test cod e = 00662-5) Normal [facility] HospitalRheumatoid Hbtsmo9655-09-61 19:37:20* Test Item Value Reference Range Interpretation Comme nts RF (test code = 7782563928) See_Comment [Automated messa ge] The system which generated this result transmitted reference range: <20 IU/mL. The reference range was not used to interpret this result as normal/abnormal. Lab Interpretation (test code = 88893-3) Normal [facility] HospitalC3 Yeangodsrc4564-89-98 19:37:20* Test Item Value Reference Range Interpretation Comme nts C3 (test code = 7397027682) 84 mg/dL 86-184 L Lab Interpretation (test cod e = 16783-3) Abnormal [facility] HospitalComp. Metabolic Panel (96079)2025-07-12 18:47:08* Test Item Value Reference Range Interpretation Comme nts NA (test code = 0170454329) 135 mmol/L 135-145 K (test code = 6808840406) 3.4 mmol/L 3.5-5.0 L CL (test code = 4958363121) 96 mmol/L 98-108 L CO2 TOTAL (test code = 2324105012) 31 mmol/L 23-31 AGAP (test code = 0078221574) 8 2-16 BUN (test code = 2779734456) 13 mg/dL 7-23 GLUCOSE (test code = 5849775975) 86 mg/dL 70-110 CREATININE (test code = 2160-0) 0.57 mg/dL 0.50-1.04 TOTAL BILI (test code = 1713199705) 1.3 mg/dL 0.1-1.1 H CALCIUM (test code = 8604206655) 10 mg/dL 8.6-10.6 T PROTEIN (test code = 0427443333) 7.8 g/dL 6.3-8.2 ALBUMIN (test code = 5123236806) 4.2 g/dL 3.5-5.0 ALK PHOS (test code = 8296699361) 78 U/L 34-122 ALTv (test code = 1742-6) 22 U/L 5-35 AST(SGOT) (test code = 6114581582) 60 U/L 13-40 H eGFR (test code = 20875-5) 112.3 mL/min/1.73m2 CKD-EPI eGFR (2020). Assuming creatinine has been stable day-to-day for at least three months, the eGFR indicates Category G1 (>= 90 mL/min/1.73 m2) Lab Interpretation (test code = 78875-8) Abnormal [facility] HospitalCb with Snix8195-25-06 16:06:00* Test Item Value Reference Range Interpretation Comme nts WBC (test code = 6690-2) 3.74 4.30-11.10 L RBC (test code = 789-8) 4.51 3.93-5.25 HGB (test code = 718-7) 13.4 g/dL 11.6-15.0 HCT (test code = 4544-3) 37.8 % 35.7-45.2 MCV (test code = 787-2) 83.8 fL 80.6-95.5 MCH (test code = 785-6) 29.7 pg 25.9-32.8 MCHC (test code = 786-4) 35.4 g/dL 31.6-35.1 H RDW-SD (test code = 69751-1) 41 fL 39.0-49.9 RDW-CV (test code = 788-0) 13.3 % 12.0-15.5 PLT (test code = 777-3) 227 166-358 MPV (test code = 36270-9) 10.6 fL 9.5-12.9 NRBC/100 WBC (test code = 9965280378) 0 0.0-10.0 NRBC x10^3 (test code = 0618356757) See_Comment [Automated messa ge] The system which generated this result transmitted reference range: 10*3/?L. The reference range was not used to interpret this result as normal/abnormal. GRAN MAT (NEUT) % (test code = 770-8) 59.3 % IMM GRAN % (test code = 2004509250) 0 % LYMPH % (test code = 736-9) 31.6 % MONO % (test code = 5905-5) 6.7 % EOS % (test code = 713-8) 2.1 % BASO % (test code = 706-2) 0.3 % GRAN MAT x10^3(ANC) (test code = 4136749190) 2.22 10*3/uL 1.88-7.09 IMM GRAN x10^3 (test code = 3537580181) 0.00-0.06 LYMPH x10^3 (test code = 731-0) 1.18 10*3/uL 1.32-3.29 L MONO x10^3 (test code = 742-7) 0.25 10*3/uL 0.33-0.92 L EOS x10^3 (test code = 711-2) 0.08 10*3/uL 0.03-0.39 BASO x10^3 (test code = 704-7) 0.01-0.07 Lab Interpretation (test code = 04345-7) Abnormal [facility] HospitalSM/GLOBAL MARKETING COORDINATOR [id number] 00:00:00* Test Item Value Reference Range Interpretation Comme nts SM/GLOBAL MARKETING COORDINATOR ANTIBODY (test code = 84877-5) <1.0 NEG AI Devang F AustinEARLY SJOGRENS SYNDROME [id number] 00:00:00* Test Item Value Reference Range Interpretation Comme nts SALIVARY PROTEIN 1 (SP 1) IG G ANTIBODIES* (test code = 48123-2) 9.3 EU/ml SALIVARY PROTEIN 1 (SP 1) IG A ANTIBODIES* (test code = 13668-6) 28.1 EU/ml SALIVARY PROTEIN 1 (SP 1) IG M ANTIBODIES* (test code = 40627-1) 5.4 EU/ml CARBONIC ANHYDRASE (CA ) IGG ANTIBODIES* (test code = 46654-5) 17.4 EU/ml CARBONIC ANHYDRASE (CA ) IGA ANTIBODIES* (test code = 46860-7) 17.1 EU/ml CARBONIC ANHYDRASE (CA ) IGM ANTIBODIES* (test code = 97096-9) 6.0 EU/ml PAROTID SPECIFIC PROTEIN (PS P) IGG ANTIBODIES* (test code = 25266-6) 9.6 EU/ml PAROTID SPECIFIC PROTEIN (PS P) IGA ANTIBODIES* (test code = 03026-8) 9.8 EU/ml PAROTID SPECIFIC PROTEIN (PS P) IGM ANTIBODIES* (test code = 57394-7) 13.5 EU/ml Devang BrownSCL-70 [id number] 00:00:00* Test Item Value Reference Range Interpretation Comme nts SCL-70 ANTIBODY (test code = 37726-0) <1.0 NEG AI Devang Davis AustinSM/GLOBAL MARKETING COORDINATOR [id number] 00:00:00* Test Item Value Reference Range Interpretation Comme nts SM/GLOBAL MARKETING COORDINATOR ANTIBODY (test code = 33653-9) <1.0 NEG AI Devang BrownEARLY SJOGRENS SYNDROME [id number] 00:00:00* Test Item Value Reference Range Interpretation Comme nts SALIVARY PROTEIN 1 (SP 1) IG G ANTIBODIES* (test code = 66621-8) 9.3 EU/ml SALIVARY PROTEIN 1 (SP 1) IG A ANTIBODIES* (test code = 70303-6) 28.1 EU/ml SALIVARY PROTEIN 1 (SP 1) IG M ANTIBODIES* (test code = 84383-8) 5.4 EU/ml CARBONIC ANHYDRASE (CA ) IGG ANTIBODIES* (test code = 79647-1) 17.4 EU/ml CARBONIC ANHYDRASE (CA ) IGA ANTIBODIES* (test code = 29706-3) 17.1 EU/ml CARBONIC ANHYDRASE (CA ) IGM ANTIBODIES* (test code = 01255-5) 6.0 EU/ml PAROTID SPECIFIC PROTEIN (PS P) IGG ANTIBODIES* (test code = 81299-4) 9.6 EU/ml PAROTID SPECIFIC PROTEIN (PS P) IGA ANTIBODIES* (test code = 16069-2) 9.8 EU/ml PAROTID SPECIFIC PROTEIN (PS P) IGM ANTIBODIES* (test code = 94798-1) 13.5 EU/ml Devang BrownSCL-70 [id number] 00:00:00* Test Item Value Reference Range Interpretation Comme nts SCL-70 ANTIBODY (test code = 94544-4) <1.0 NEG AI Devang BrownANA [id number] 23:51:23* Test Item Value Reference Range Interpretation Comme nts ANTI-NUCLEAR ANTIBODIES (test code = 3506) POSITIVE NEGATIVE A PAN PATTERN (REPORTED TITER) (test code = 75398) SEE BELOW HOMOGENEOUS (test code = 04007) NEGATIVE TITER NEGATIVE SPECKLED (test code = 290904) NEGATIVE TITER NEGATIVE DENSE FINE SPECKLED (test code = 11840) 1:160 TITER NEGATIVE H CENTROMERE (test code = 680096) NEGATIVE TITER NEGATIVE COARSE SPECKLED (test code = 580773) NEGATIVE TITER NEGATIVE DISCRETE NUCLEAR DOTS (test code = 103263) NEGATIVE TITER NEGATIVE NUCLEOLAR (test code = 303248) NEGATIVE TITER NEGATIVE NUCLEAR MEMBRANE (test code = 292247) NEGATIVE TITER NEGATIVE CYTO. RETICULAR (JOSEPH) (test code = 819635) NEGATIVE NEGATIVE COMMENTS (test code = 316176) NONE METHOD (test code = 49799) (NOTE) TESTING PERFORME D BY [employer] IFA PLATFORM.THE METHOD INCLUDES A SCREEN THRESHOLD OF 1:80, DIGITIZED AND COMPUTER ALGORITHM-ASSISTED INTERPRETATION OF TITERS AND DIGITAL PATTERNS, AND HEp-2 CELL LINE SUBSTRATE. ADDITIONAL UNUSUAL PATTERNS WILL BE GIVEN COMMENTS.FOR MORE INFORMATION, SEE [email or web address] UNLESS OTHERWISE INDICATED, ALL TESTING PERFORMED AT [facility] [address] [place] [address], [place] [address] MAINTENANCE HELPER UTILITY ENGINEER: DRAKE MARTÍNEZ M.D. [place] NUMBER [id number] [facility] [place] [id number] PAN [id number] 00:00:00* Test Item Value Reference Range Interpretation Comme nts ANTI-NUCLEAR ANTIBODIES (jordon t code = 3506) POSITIVE PAN PATTERN (REPORTED TITER) (test code = 25052) SEE BELOW HOMOGENEOUS (test code = 98964) NEGATIVE TITER SPECKLED (test code = 730558) NEGATIVE TITER DENSE FINE SPECKLED (test co de = 84460) 1:160 TITER CENTROMERE (test code = 470167) NEGATIVE TITER COARSE SPECKLED (test code = 592052) NEGATIVE TITER DISCRETE NUCLEAR DOTS (test code = 698877) NEGATIVE TITER NUCLEOLAR (test code = 759176) NEGATIVE TITER NUCLEAR MEMBRANE (test code = 568926) NEGATIVE TITER CYTO. RETICULAR (JOSEPH) (test code = 947732) NEGATIVE COMMENTS (test code = 091154) NONE METHOD (test code = 56936) (NOTE) Devang Romo [id number] 00:00:00* Test Item Value Reference Range Interpretation Comme nts ANTI-NUCLEAR ANTIBODIES (jordon t code = 3506) POSITIVE PAN PATTERN (REPORTED TITER) (test code = 55120) SEE BELOW HOMOGENEOUS (test code = 15576) NEGATIVE TITER SPECKLED (test code = 126581) NEGATIVE TITER DENSE FINE SPECKLED (test co de = 10349) 1:160 TITER CENTROMERE (test code = 136356) NEGATIVE TITER COARSE SPECKLED (test code = 144988) NEGATIVE TITER DISCRETE NUCLEAR DOTS (test code = 060151) NEGATIVE TITER NUCLEOLAR (test code = 395073) NEGATIVE TITER NUCLEAR MEMBRANE (test code = 153518) NEGATIVE TITER CYTO. RETICULAR (JOSEPH) (test code = 766488) NEGATIVE COMMENTS (test code = 451454) NONE METHOD (test code = 78986) (NOTE) Devang BrownCCP [id number] 12:56:57* Test Item Value Reference Range Interpretation Comme nts CCP IgG (test code = 03024) <0.5 U/ML <3.0 INTERPRETIVE INF ORMATION INTERPRETATION RESULT NEGATIVE <3.0 U/ML POSITIVE >=3.0 U/ML UNLESS OTHERWISE INDICATED, ALL TESTING PERFORMED AT [facility] [address] [place] [address], [place] [address] MAINTENANCE HELPER UTILITY ENGINEER: DRAKE MARTÍNEZ M.D. CLIA NUMBER [id number] [place]. [id number] RHEUMATOID FACTOR, [id number] 05:49:22* Test Item Value Reference Range Interpretation Comme nts RHEUMATOID FACTOR, QUANT (te st code = 3502) <10 IU/ML <14 URIC [id number] 05:37:15* Test Item Value Reference Range Interpretation Comme parker URIC ACID (test code = 2233) 5.4 MG/DL 2.7-6.1 URIC [id number] 00:00:00* Test Item Value Reference Range Interpretation Comme nts URIC ACID (test code = 2233) 5.4 MG/DL Devang BrownURIC [id number] 00:00:00* Test Item Value Reference Range Interpretation Comme parker URIC ACID (test code = 2233) 5.4 MG/DL Devang [facility] STUDY DATA [id number] 20:44:23Ordered by an unspecified provider.[facility] STUDY DATA REPORT 2024-11-18 20:43:37Ordered by an unspecified provider.[facility]-[id number] 09:59:52* Test Item Value Reference Range Interpretation Comme [facility] D-DIMER (test code = 1405) TEST NOT PERFORMED UG/ML FEU <=0.49 Unable to perform testing, specimen not received.Charges adjusted as applicable. NOTE: Provided reference range is established for evaluation of Deep Venous Thrombosis/Pulmonary Embolus (DVT/PE). Results below cutoff value of <=0.49 UG/ML FEU have a high negative predictive value forDVT/PE. No reference range is established for disseminatedintra-vas cular coagulation (DIC). A-[id number] 00:00:00* Test Item Value Reference Range Interpretation Comme [facility] D-DIMER (test code = 1405) TEST NOT PERFORMED UG/MLFEU Devang BrownXqvvgdH-TESAX1731-28-13 00:00:00* Test Item Value Reference Range Interpretation Comme [facility] D-DIMER (test code = 1405) TEST NOT PERFORMED UG/MLFEU Devang Davis TxusrwI-QZWIB2531-63-13 00:00:00* Test Item Value Reference Range Interpretation Comme [facility] D-DIMER (test code = 1405) TEST NOT PERFORMED UG/MLFEU Devang BrownPROTEIN ELECTROPHORESIS, [id number] 15:51:39* Test Item Value Reference Range Interpretation Comme nts ALBUMIN (test code = 2554) 3.9 G/DL 2.8-4.9 % ALBUMIN (test code = 2562) 59 % GLOBULIN (test code = 2555) 2.8 G/DL 2.0-3.8 A/G RATIO (test code = 2561) 1.4 RATIO 1.2-1.9 ALPHA-1 (test code = 2556) 0.2 G/DL 0.2-0.5 % ALPHA-1 (test code = 2563) 4 % ALPHA-2 (test code = 2557) 0.5 G/DL 0.5-1.0 % ALPHA-2 (test code = 2564) 8 % BETA (test code = 2558) 0.9 G/DL 0.5-1.2 % BETA (test code = 2565) 13 % GAMMA (test code = 2559) 1.1 G/DL 0.7-1.5 % GAMMA (test code = 2566) 17 % PROTEIN, TOTAL (test code = 2229) 6.7 G/DL 6.1-8.3 INTERPRETATION, SPEP: (test code = 2568) (NOTE) NORMAL SERUM PRO TEIN ELECTROPHORESIS STUDY. NO MONOCLONAL PROTEIN SEEN. SAUL GO M.D., PH.D. [id number] 08:35:42* Test Item Value Reference Range Interpretation Comme nts NT-proBNP (test code = 34594) <50 PG/ML SEE BELOW If NT-ProBNP is less than 300 PG/ML, heart failure is unlikely for allages. Age.................Heart Failure Likely <50 Years...........>=450 PG/ML 50-75 Years.........>=900 PG/ML > 75 Years..........>=1800 PG/ML Methodology: mydala Blanca Electrochemiluminescense Immunoassay CBC W/AUTO DIFF WITH [id number] 07:58:22* Test Item Value Reference Range Interpretation Comme nts WBC (test code = 1001) 3.5 K/UL 3.5-11.0 RBC (test code = 1002) 4.64 M/UL 3.80-5.40 HEMOGLOBIN (test code = 1003) 13.6 G/DL 11.5-15.5 HEMATOCRIT (test code = 1004) 42.3 % 34.0-45.0 MCV (test code = 1005) 91.2 fL 80.0-99.0 MCH (test code = 1006) 29.3 PG 25.0-33.0 MCHC (test code = 1007) 32.2 G/DL 31.0-36.0 RDW (test code = 1038) 12.5 % 11.5-15.0 NEUTROPHILS (test code = 1008) 53.6 % LYMPHOCYTES (test code = 1010) 35.0 % MONOCYTES (test code = 1011) 8.8 % EOSINOPHILS (test code = 1012) 2.6 % BASOPHILS (test code = 1013) 0.0 % IMMATURE GRANULOCYTES (test code = 1036) 0.0 % NUCLEATED RBCS (test code = 1065) 0.0 /100 WBC'S See_Comment [Automated messa ge] The system which generated this result transmitted reference range: 0.0. The reference range was not used to interpret this result as normal/abnormal. PLATELET COUNT (test code = 1015) 262 K/UL 130-400 ABSOLUTE NEUTROPHILS (test code = 1066) 1.88 K/UL 1.50-7.50 ABSOLUTE LYMPHOCYTES (test code = 1067) 1.23 K/UL 1.00-4.00 ABSOLUTE MONOCYTES (test code = 1068) 0.31 K/UL 0.20-1.00 ABSOLUTE EOSINOPHILS (test code = 1040) 0.09 K/UL 0.00-0.50 ABSOLUTE BASOPHILS (test code = 1069) 0.00 K/UL 0.00-0.20 ABS IMMATURE GRANULOCYTES (test code = 1020) 0.00 K/UL 0.00-0.10 ABS NUCLEATED RBCS (test code = 56016) 0.00 K/UL 0.00-0.11 TSH, THIRD [id number] 05:15:38* Test Item Value Reference Range Interpretation Comme nts TSH, THIRD GENERATION (test code = 2821) 3.610 UIU/ML 0.400-4.100 SEDIMENTATION [id number] 04:20:07* Test Item Value Reference Range Interpretation Comme nts SEDIMENTATION RATE (test cod e = 1017) 22 MM/HOUR 0-20 H HIV 1/2 4TH GEN, RFLX [id number] 04:02:51* Test Item Value Reference Range Interpretation Comme nts HIV 1/2 4TH GEN, RFLX CONF (test code = 3514) NON-REACTIVE NON-REACTIVE UNLESS OTHERWISE INDICATED, ALL TESTING PERFORMED AT [facility] [address] [place] [id number] [employer]INTE[employer] UTILITY ENGINEER: DRAKE MARTÍNEZ M.D. CLIA NUMBER [id number] [facility] [place]. [id number] HEPATITIS C [id number] 04:02:51* Test Item Value Reference Range Interpretation Comme nts HEPATITIS C ANTIBODY (test c ode = 4675) NON-REACTIVE NON-REACTIVE CBC W/AUTO [id number] 00:00:00* Test Item Value Reference Range Interpretation Comme nts WBC (test code = 1001) 3.5 K/UL RBC (test code = 1002) 4.64 M/UL HEMOGLOBIN (test code = 1003) 13.6 G/DL HEMATOCRIT (test code = 1004) 42.3 % MCV (test code = 1005) 91.2 fL MCH (test code = 1006) 29.3 PG MCHC (test code = 1007) 32.2 G/DL RDW (test code = 1038) 12.5 % NEUTROPHILS (test code = 1008) 53.6 % LYMPHOCYTES (test code = 1010) 35.0 % MONOCYTES (test code = 1011) 8.8 % EOSINOPHILS (test code = 1012) 2.6 % BASOPHILS (test code = 1013) 0.0 % IMMATURE GRANULOCYTES (test code = 1036) 0.0 % NUCLEATED RBCS (test code = 1065) 0.0 /100WBC'S PLATELET COUNT (test code = 1015) 262 K/UL ABSOLUTE NEUTROPHILS (test c ode = 1066) 1.88 K/UL ABSOLUTE LYMPHOCYTES (test c ode = 1067) 1.23 K/UL ABSOLUTE MONOCYTES (test cod e = 1068) 0.31 K/UL ABSOLUTE EOSINOPHILS (test c ode = 1040) 0.09 K/UL ABSOLUTE BASOPHILS (test cod e = 1069) 0.00 K/UL ABS IMMATURE GRANULOCYTES (t est code = 1020) 0.00 K/UL ABS NUCLEATED RBCS (test cod e = 40816) 0.00 K/UL Devang Jj, THIRD [id number] 00:00:00* Test Item Value Reference Range Interpretation Comme nts TSH, THIRD GENERATION (test code = 2821) 3.610 UIU/ML Devang BrownHEPATITIS C [id number] 00:00:00* Test Item Value Reference Range Interpretation Comme nts HEPATITIS C ANTIBODY (test c ode = 4675) NON-REACTIVE Devang BrownPROTEIN ELECTROPHORESIS, [id number] 00:00:00* Test Item Value Reference Range Interpretation Comme nts ALBUMIN (test code = 2554) 3.9 G/DL % ALBUMIN (test code = 2562) 59 % GLOBULIN (test code = 2555) 2.8 G/DL A/G RATIO (test code = 2561) 1.4 RATIO ALPHA-1 (test code = 2556) 0.2 G/DL % ALPHA-1 (test code = 2563) 4 % ALPHA-2 (test code = 2557) 0.5 G/DL % ALPHA-2 (test code = 2564) 8 % BETA (test code = 2558) 0.9 G/DL % BETA (test code = 2565) 13 % GAMMA (test code = 2559) 1.1 G/DL % GAMMA (test code = 2566) 17 % PROTEIN, TOTAL (test code = 2229) 6.7 G/DL INTERPRETATION, SPEP: (test code = 2568) (NOTE) Devang BrownQnrckhBU-[id number] 00:00:00* Test Item Value Reference Range Interpretation Comme nts NT-proBNP (test code = 46927) <50 PG/ML Devang BrownSEDIMENTATION [id number] 00:00:00* Test Item Value Reference Range Interpretation Comme nts SEDIMENTATION RATE (test cod e = 1017) 22 MM/HOUR Devang BrownHIV 1/2 4TH GEN, RFLX [id number] 00:00:00* Test Item Value Reference Range Interpretation Comme nts HIV 1/2 4TH GEN, RFLX CONF ( test code = 3514) NON-REACTIVE Devang BrownCBC W/AUTO [id number] 00:00:00* Test Item Value Reference Range Interpretation Comme nts WBC (test code = 1001) 3.5 K/UL RBC (test code = 1002) 4.64 M/UL HEMOGLOBIN (test code = 1003) 13.6 G/DL HEMATOCRIT (test code = 1004) 42.3 % MCV (test code = 1005) 91.2 fL MCH (test code = 1006) 29.3 PG MCHC (test code = 1007) 32.2 G/DL RDW (test code = 1038) 12.5 % NEUTROPHILS (test code = 1008) 53.6 % LYMPHOCYTES (test code = 1010) 35.0 % MONOCYTES (test code = 1011) 8.8 % EOSINOPHILS (test code = 1012) 2.6 % BASOPHILS (test code = 1013) 0.0 % IMMATURE GRANULOCYTES (test code = 1036) 0.0 % NUCLEATED RBCS (test code = 1065) 0.0 /100WBC'S PLATELET COUNT (test code = 1015) 262 K/UL ABSOLUTE NEUTROPHILS (test c ode = 1066) 1.88 K/UL ABSOLUTE LYMPHOCYTES (test c ode = 1067) 1.23 K/UL ABSOLUTE MONOCYTES (test cod e = 1068) 0.31 K/UL ABSOLUTE EOSINOPHILS (test c ode = 1040) 0.09 K/UL ABSOLUTE BASOPHILS (test cod e = 1069) 0.00 K/UL ABS IMMATURE GRANULOCYTES (t est code = 1020) 0.00 K/UL ABS NUCLEATED RBCS (test cod e = 25512) 0.00 K/UL Devang BrownAVANIH, THIRD [id number] 00:00:00* Test Item Value Reference Range Interpretation Comme nts TSH, THIRD GENERATION (test code = 2821) 3.610 UIU/ML Devang Davis KevinHEPATITIS C [id number] 00:00:00* Test Item Value Reference Range Interpretation Comme nts HEPATITIS C ANTIBODY (test c ode = 4675) NON-REACTIVE Devang BrownPROTEIN ELECTROPHORESIS, [id number] 00:00:00* Test Item Value Reference Range Interpretation Comme nts ALBUMIN (test code = 2554) 3.9 G/DL % ALBUMIN (test code = 2562) 59 % GLOBULIN (test code = 2555) 2.8 G/DL A/G RATIO (test code = 2561) 1.4 RATIO ALPHA-1 (test code = 2556) 0.2 G/DL % ALPHA-1 (test code = 2563) 4 % ALPHA-2 (test code = 2557) 0.5 G/DL % ALPHA-2 (test code = 2564) 8 % BETA (test code = 2558) 0.9 G/DL % BETA (test code = 2565) 13 % GAMMA (test code = 2559) 1.1 G/DL % GAMMA (test code = 2566) 17 % PROTEIN, TOTAL (test code = 2229) 6.7 G/DL INTERPRETATION, SPEP: (test code = 2568) (NOTE) Devang Davis [id number] 00:00:00* Test Item Value Reference Range Interpretation Comme nts NT-proBNP (test code = 20190) <50 PG/ML Devang BrownSEDIMENTATION [id number] 00:00:00* Test Item Value Reference Range Interpretation Comme nts SEDIMENTATION RATE (test cod e = 1017) 22 MM/HOUR Devang BrownHIV 1/2 4TH GEN, RFLX [id number] 00:00:00* Test Item Value Reference Range Interpretation Comme nts HIV 1/2 4TH GEN, RFLX CONF ( test code = 3514) NON-REACTIVE Devang BrownCBC W/AUTO [id number] 00:00:00* Test Item Value Reference Range Interpretation Comme nts WBC (test code = 1001) 3.5 K/UL RBC (test code = 1002) 4.64 M/UL HEMOGLOBIN (test code = 1003) 13.6 G/DL HEMATOCRIT (test code = 1004) 42.3 % MCV (test code = 1005) 91.2 fL MCH (test code = 1006) 29.3 PG MCHC (test code = 1007) 32.2 G/DL RDW (test code = 1038) 12.5 % NEUTROPHILS (test code = 1008) 53.6 % LYMPHOCYTES (test code = 1010) 35.0 % MONOCYTES (test code = 1011) 8.8 % EOSINOPHILS (test code = 1012) 2.6 % BASOPHILS (test code = 1013) 0.0 % IMMATURE GRANULOCYTES (test code = 1036) 0.0 % NUCLEATED RBCS (test code = 1065) 0.0 /100WBC'S PLATELET COUNT (test code = 1015) 262 K/UL ABSOLUTE NEUTROPHILS (test c ode = 1066) 1.88 K/UL ABSOLUTE LYMPHOCYTES (test c ode = 1067) 1.23 K/UL ABSOLUTE MONOCYTES (test cod e = 1068) 0.31 K/UL ABSOLUTE EOSINOPHILS (test c ode = 1040) 0.09 K/UL ABSOLUTE BASOPHILS (test cod e = 1069) 0.00 K/UL ABS IMMATURE GRANULOCYTES (t est code = 1020) 0.00 K/UL ABS NUCLEATED RBCS (test cod e = 68013) 0.00 K/UL Devang BrownTSH, THIRD [id number] 00:00:00* Test Item Value Reference Range Interpretation Comme nts TSH, THIRD GENERATION (test code = 2821) 3.610 UIU/ML Devang BrownHEPATITIS C [id number] 00:00:00* Test Item Value Reference Range Interpretation Comme nts HEPATITIS C ANTIBODY (test c ode = 4675) NON-REACTIVE Devang BrownPROTEIN ELECTROPHORESIS, [id number] 00:00:00* Test Item Value Reference Range Interpretation Comme nts ALBUMIN (test code = 2554) 3.9 G/DL % ALBUMIN (test code = 2562) 59 % GLOBULIN (test code = 2555) 2.8 G/DL A/G RATIO (test code = 2561) 1.4 RATIO ALPHA-1 (test code = 2556) 0.2 G/DL % ALPHA-1 (test code = 2563) 4 % ALPHA-2 (test code = 2557) 0.5 G/DL % ALPHA-2 (test code = 2564) 8 % BETA (test code = 2558) 0.9 G/DL % BETA (test code = 2565) 13 % GAMMA (test code = 2559) 1.1 G/DL % GAMMA (test code = 2566) 17 % PROTEIN, TOTAL (test code = 2229) 6.7 G/DL INTERPRETATION, SPEP: (test code = 2568) (NOTE) Devang BrownIvkgpmRU-[id number] 00:00:00* Test Item Value Reference Range Interpretation Comme nts NT-proBNP (test code = 88123) <50 PG/ML Devang BrownSEDIMENTATION [id number] 00:00:00* Test Item Value Reference Range Interpretation Comme nts SEDIMENTATION RATE (test cod e = 1017) 22 MM/HOUR Devang BrownHIV 1/2 4TH GEN, RFLX [id number] 00:00:00* Test Item Value Reference Range Interpretation Comme nts HIV 1/2 4TH GEN, RFLX CONF ( test code = 3514) NON-REACTIVE Devang BrownCBC W/AUTO DIFF WITH [id number] 03:23:36* Test Item Value Reference Range Interpretation Comme nts WBC (test code = 1001) 5.6 K/UL 3.5-11.0 RBC (test code = 1002) 4.80 M/UL 3.80-5.40 HEMOGLOBIN (test code = 1003) 13.0 G/DL 11.5-15.5 HEMATOCRIT (test code = 1004) 40.0 % 34.0-45.0 MCV (test code = 1005) 83.3 fL 80.0-99.0 MCH (test code = 1006) 27.1 PG 25.0-33.0 MCHC (test code = 1007) 32.5 G/DL 31.0-36.0 RDW (test code = 1038) 15.0 % 11.5-15.0 NEUTROPHILS (test code = 1008) 60.6 % LYMPHOCYTES (test code = 1010) 31.7 % MONOCYTES (test code = 1011) 6.6 % EOSINOPHILS (test code = 1012) 0.7 % BASOPHILS (test code = 1013) 0.2 % IMMATURE GRANULOCYTES (test code = 1036) 0.2 % NUCLEATED RBCS (test code = 1065) 0.0 /100 WBC'S See_Comment [Automated message] The system which generated this result transmitted reference range: 0.0. The reference range was not used to interpret this result as normal/abnormal. PLATELET COUNT (test code = 1015) 332 K/UL 130-400 ABSOLUTE NEUTROPHILS (test code = 1066) 3.41 K/UL 1.50-7.50 ABSOLUTE LYMPHOCYTES (test code = 1067) 1.78 K/UL 1.00-4.00 ABSOLUTE MONOCYTES (test code = 1068) 0.37 K/UL 0.20-1.00 ABSOLUTE EOSINOPHILS (test code = 1040) 0.04 K/UL 0.00-0.50 ABSOLUTE BASOPHILS (test code = 1069) 0.01 K/UL 0.00-0.20 ABS IMMATURE GRANULOCYTES (test code = 1020) 0.01 K/UL 0.00-0.10 ABS NUCLEATED RBCS (test code = 94190) 0.00 K/UL 0.00-0.11 UNLESS OTHER SCHUSTER INDICATED, ALL TESTING PERFORMED AT [facility] [address] [place] [address] MAINTENANCE HELPER UTILITY ENGINEER: DRAKE MARTÍNEZ M.D. CLIA NUMBER [id number] [facility] [place] [place]. [id number] CBC W/AUTO [id number] 00:00:00* Test Item Value Reference Range Interpretation Comme nts WBC (test code = 1001) 5.6 K/UL RBC (test code = 1002) 4.80 M/UL HEMOGLOBIN (test code = 1003) 13.0 G/DL HEMATOCRIT (test code = 1004) 40.0 % MCV (test code = 1005) 83.3 fL MCH (test code = 1006) 27.1 PG MCHC (test code = 1007) 32.5 G/DL RDW (test code = 1038) 15.0 % NEUTROPHILS (test code = 1008) 60.6 % LYMPHOCYTES (test code = 1010) 31.7 % MONOCYTES (test code = 1011) 6.6 % EOSINOPHILS (test code = 1012) 0.7 % BASOPHILS (test code = 1013) 0.2 % IMMATURE GRANULOCYTES (test code = 1036) 0.2 % NUCLEATED RBCS (test code = 1065) 0.0 /100WBC'S PLATELET COUNT (test code = 1015) 332 K/UL ABSOLUTE NEUTROPHILS (test c ode = 1066) 3.41 K/UL ABSOLUTE LYMPHOCYTES (test c ode = 1067) 1.78 K/UL ABSOLUTE MONOCYTES (test cod e = 1068) 0.37 K/UL ABSOLUTE EOSINOPHILS (test c ode = 1040) 0.04 K/UL ABSOLUTE BASOPHILS (test cod e = 1069) 0.01 K/UL ABS IMMATURE GRANULOCYTES (t est code = 1020) 0.01 K/UL ABS NUCLEATED RBCS (test cod e = 65715) 0.00 K/UL Devang BrownC W/AUTO [id number] 00:00:00* Test Item Value Reference Range Interpretation Comme nts WBC (test code = 1001) 5.6 K/UL RBC (test code = 1002) 4.80 M/UL HEMOGLOBIN (test code = 1003) 13.0 G/DL HEMATOCRIT (test code = 1004) 40.0 % MCV (test code = 1005) 83.3 fL MCH (test code = 1006) 27.1 PG MCHC (test code = 1007) 32.5 G/DL RDW (test code = 1038) 15.0 % NEUTROPHILS (test code = 1008) 60.6 % LYMPHOCYTES (test code = 1010) 31.7 % MONOCYTES (test code = 1011) 6.6 % EOSINOPHILS (test code = 1012) 0.7 % BASOPHILS (test code = 1013) 0.2 % IMMATURE GRANULOCYTES (test code = 1036) 0.2 % NUCLEATED RBCS (test code = 1065) 0.0 /100WBC'S PLATELET COUNT (test code = 1015) 332 K/UL ABSOLUTE NEUTROPHILS (test c ode = 1066) 3.41 K/UL ABSOLUTE LYMPHOCYTES (test c ode = 1067) 1.78 K/UL ABSOLUTE MONOCYTES (test cod e = 1068) 0.37 K/UL ABSOLUTE EOSINOPHILS (test c ode = 1040) 0.04 K/UL ABSOLUTE BASOPHILS (test cod e = 1069) 0.01 K/UL ABS IMMATURE GRANULOCYTES (t est code = 1020) 0.01 K/UL ABS NUCLEATED RBCS (test cod e = 00776) 0.00 K/UL [facility] [id number] 00:00:00* Test Item Value Reference Range Interpretation Comme nts WBC (test code = 1001) 5.6 K/UL RBC (test code = 1002) 4.80 M/UL HEMOGLOBIN (test code = 1003) 13.0 G/DL HEMATOCRIT (test code = 1004) 40.0 % MCV (test code = 1005) 83.3 fL MCH (test code = 1006) 27.1 PG MCHC (test code = 1007) 32.5 G/DL RDW (test code = 1038) 15.0 % NEUTROPHILS (test code = 1008) 60.6 % LYMPHOCYTES (test code = 1010) 31.7 % MONOCYTES (test code = 1011) 6.6 % EOSINOPHILS (test code = 1012) 0.7 % BASOPHILS (test code = 1013) 0.2 % IMMATURE GRANULOCYTES (test code = 1036) 0.2 % NUCLEATED RBCS (test code = 1065) 0.0 /100WBC'S PLATELET COUNT (test code = 1015) 332 K/UL ABSOLUTE NEUTROPHILS (test c ode = 1066) 3.41 K/UL ABSOLUTE LYMPHOCYTES (test c ode = 1067) 1.78 K/UL ABSOLUTE MONOCYTES (test cod e = 1068) 0.37 K/UL ABSOLUTE EOSINOPHILS (test c ode = 1040) 0.04 K/UL ABSOLUTE BASOPHILS (test cod e = 1069) 0.01 K/UL ABS IMMATURE GRANULOCYTES (t est code = 1020) 0.01 K/UL ABS NUCLEATED RBCS (test cod e = 35286) 0.00 K/UL Devang Davis [facility] W[facility]AUTO [id number] 00:00:00* Test Item Value Reference Range Interpretation Comme nts WBC (test code = 1001) 5.6 K/UL RBC (test code = 1002) 4.80 M/UL HEMOGLOBIN (test code = 1003) 13.0 G/DL HEMATOCRIT (test code = 1004) 40.0 % MCV (test code = 1005) 83.3 fL MCH (test code = 1006) 27.1 PG MCHC (test code = 1007) 32.5 G/DL RDW (test code = 1038) 15.0 % NEUTROPHILS (test code = 1008) 60.6 % LYMPHOCYTES (test code = 1010) 31.7 % MONOCYTES (test code = 1011) 6.6 % EOSINOPHILS (test code = 1012) 0.7 % BASOPHILS (test code = 1013) 0.2 % IMMATURE GRANULOCYTES (test code = 1036) 0.2 % NUCLEATED RBCS (test code = 1065) 0.0 /100WBC'S PLATELET COUNT (test code = 1015) 332 K/UL ABSOLUTE NEUTROPHILS (test c ode = 1066) 3.41 K/UL ABSOLUTE LYMPHOCYTES (test c ode = 1067) 1.78 K/UL ABSOLUTE MONOCYTES (test cod e = 1068) 0.37 K/UL ABSOLUTE EOSINOPHILS (test c ode = 1040) 0.04 K/UL ABSOLUTE BASOPHILS (test cod e = 1069) 0.01 K/UL ABS IMMATURE GRANULOCYTES (t est code = 1020) 0.01 K/UL ABS NUCLEATED RBCS (test cod e = 44076) 0.00 K/UL Devang BrownCBC W/AUTO [id number] 00:00:00* Test Item Value Reference Range Interpretation Comme nts WBC (test code = 1001) 5.6 K/UL RBC (test code = 1002) 4.80 M/UL HEMOGLOBIN (test code = 1003) 13.0 G/DL HEMATOCRIT (test code = 1004) 40.0 % MCV (test code = 1005) 83.3 fL MCH (test code = 1006) 27.1 PG MCHC (test code = 1007) 32.5 G/DL RDW (test code = 1038) 15.0 % NEUTROPHILS (test code = 1008) 60.6 % LYMPHOCYTES (test code = 1010) 31.7 % MONOCYTES (test code = 1011) 6.6 % EOSINOPHILS (test code = 1012) 0.7 % BASOPHILS (test code = 1013) 0.2 % IMMATURE GRANULOCYTES (test code = 1036) 0.2 % NUCLEATED RBCS (test code = 1065) 0.0 /100WBC'S PLATELET COUNT (test code = 1015) 332 K/UL ABSOLUTE NEUTROPHILS (test c ode = 1066) 3.41 K/UL ABSOLUTE LYMPHOCYTES (test c ode = 1067) 1.78 K/UL ABSOLUTE MONOCYTES (test cod e = 1068) 0.37 K/UL ABSOLUTE EOSINOPHILS (test c ode = 1040) 0.04 K/UL ABSOLUTE BASOPHILS (test cod e = 1069) 0.01 K/UL ABS IMMATURE GRANULOCYTES (t est code = 1020) 0.01 K/UL ABS NUCLEATED RBCS (test cod e = 04835) 0.00 K/UL Devang BrownBONE SPECIFIC ALK [id number] 09:58:24* Test Item Value Reference Range Interpretation Comme nts BONE SPECIFIC ALK PHOS (test code = 14129) 19.0 mcg/L Liver alkaline phosphatase (ALP) can affect the measurement ofbone specific ALP in this assay. Each 100 U/L of liver ALPactivity contributes an additional 2.8 to 6.2 mcg/L to the bonespecific ALP result. Consider ALP isoenzyme analysis forevaluation of additional isoenzyme fractions. Reference Interval for FemalesPremenopausal: 5.4 - 20.3 mcg/LPostmenopausal: 8.4 - 26.9 mcg/L TESTING PERFORMED AT [facility] [address] [facility] [address], [address] [address] CLIA NO: [id number] UNLESS OTHERWISE INDICATED, ALL TESTING PERFORMED AT [facility] [address] [place] [address] MAINTENANCE HELPER UTILITY ENGINEER: DRAKE MARTÍNEZ M.D. CLIA NUMBER [id number] [place]. [id number] CBC W/AUTO DIFF WITH [id number] 08:30:02* Test Item Value Reference Range Interpretation Comme nts WBC (test code = 1001) TEST NOT PERFORMED K/UL 3.5-11.0 Unable to perform testing, specimen is past stability.Charge s adjusted as applicable. RBC (test code = 1002) TEST NOT PERFORMED M/UL 3.80-5.40 HEMOGLOBIN (test code = 1003) TEST NOT PERFORMED G/DL 11.5-15.5 HEMATOCRIT (test code = 1004) TEST NOT PERFORMED % 34.0-45.0 MCV (test code = 1005) TEST NOT PERFORMED fL 80.0-99.0 MCH (test code = 1006) TEST NOT PERFORMED PG 25.0-33.0 MCHC (test code = 1007) TEST NOT PERFORMED G/DL 31.0-36.0 RDW (test code = 1038) TEST NOT PERFORMED % 11.5-15.0 NEUTROPHILS (test code = 1008) TEST NOT PERFORMED % LYMPHOCYTES (test code = 1010) TEST NOT PERFORMED % MONOCYTES (test code = 1011) TEST NOT PERFORMED % EOSINOPHILS (test code = 1012) TEST NOT PERFORMED % BASOPHILS (test code = 1013) TEST NOT PERFORMED % PLATELET COUNT (test code = 1015) TEST NOT PERFORMED K/UL 130-400 ABSOLUTE NEUTROPHILS (test code = 1066) TEST NOT PERFORMED K/UL 1.50-7.50 ABSOLUTE LYMPHOCYTES (test code = 1067) TEST NOT PERFORMED K/UL 1.00-4.00 ABSOLUTE MONOCYTES (test code = 1068) TEST NOT PERFORMED K/UL 0.20-1.00 ABSOLUTE EOSINOPHILS (test code = 1040) TEST NOT PERFORMED K/UL 0.00-0.50 ABSOLUTE BASOPHILS (test code = 1069) TEST NOT PERFORMED K/UL 0.00-0.20 BONE SPECIFIC ALK [id number] 00:00:00* Test Item Value Reference Range Interpretation Comme nts BONE SPECIFIC ALK PHOS (test code = 02672) 19.0 mcg/L Devang F AustinBONE SPECIFIC ALK [id number] 00:00:00* Test Item Value Reference Range Interpretation Comme nts BONE SPECIFIC ALK PHOS (test code = 97633) 19.0 mcg/L Devang F AustinBONE SPECIFIC ALK [id number] 00:00:00* Test Item Value Reference Range Interpretation Comme nts BONE SPECIFIC ALK PHOS (test code = 33274) 19.0 mcg/L Devang F AustinBONE SPECIFIC ALK [id number] 00:00:00* Test Item Value Reference Range Interpretation Comme nts BONE SPECIFIC ALK PHOS (test code = 01327) 19.0 mcg/L Devang F AustinBONE SPECIFIC ALK [id number] 00:00:00* Test Item Value Reference Range Interpretation Comme nts BONE SPECIFIC ALK PHOS (test code = 42382) 19.0 mcg/L Devang F AustinCOMPREHENSIVE METABOLIC [id number] 05:04:48* Test Item Value Reference Range Interpretation Comme nts GLUCOSE (test code = 2217) 94 MG/DL 70-99 BUN (test code = 8) 10 MG/DL 6-20 CREATININE (test code = 2214) 0.72 MG/DL 0.60-1.30 eGFR (2020 CKD-EPI) (test code = 36773) 104 ML/MIN/1.73 >60 CALC BUN/CREAT (test code = 2235) 14 RATIO 6-28 SODIUM (test code = 2231) 138 MEQ/L 133-146 POTASSIUM (test code = 2228) 3.4 MEQ/L 3.5-5.4 L CHLORIDE (test code = 2215) 99 MEQ/L 95-107 CARBON DIOXIDE (test code = 2206) 26 MEQ/L 19-31 CALCIUM (test code = 2209) 9.4 MG/DL 8.5-10.5 PROTEIN, TOTAL (test code = 222) 8.2 G/DL 6.1-8.3 ALBUMIN (test code = 2201) 4.7 G/DL 3.5-5.2 CALC GLOBULIN (test code = 2240) 3.5 G/DL 1.9-3.7 CALC A/G RATIO (test code = 223) 1.3 RATIO 1.0-2.6 BILIRUBIN, TOTAL (test code = 2207) 0.5 MG/DL <=1.2 ALKALINE PHOSPHATASE (test code = 220) 93 U/L 40-120 AST (test code = 2218) 40 U/L 9-40 ALT (test code = 2219) 29 U/L 5-40 UNLESS OTHERWISE INDICATED, ALL TESTING PERFORMED AT [facility] [address] [place] [address] MAINTENANCE HELPER UTILITY ENGINEER: DRAKE MARTÍNEZ M.D. CLIA NUMBER [id number] [facility] [place]. [id number] COMPREHENSIVE METABOLIC [id number] 06:49:41* Test Item Value Reference Range Interpretation Comme nts GLUCOSE (test code = 221) 79 MG/DL 70-99 BUN (test code = 2207) 8 MG/DL 6-20 CREATININE (test code = 221) 0.66 MG/DL 0.60-1.30 eGFR (2020 CKD-EPI) (test code = 72085) 109 ML/MIN/1.73 >60 CALC BUN/CREAT (test code = 2235) 12 RATIO 6-28 SODIUM (test code = 223) 138 MEQ/L 133-146 POTASSIUM (test code = 2228) 4.1 MEQ/L 3.5-5.4 CHLORIDE (test code = 2215) 101 MEQ/L 95-107 CARBON DIOXIDE (test code = 2206) 19 MEQ/L 19-31 CALCIUM (test code = 2209) 9.2 MG/DL 8.5-10.5 PROTEIN, TOTAL (test code = 222) 7.8 G/DL 6.1-8.3 ALBUMIN (test code = 2201) 4.3 G/DL 3.5-5.2 CALC GLOBULIN (test code = 2240) 3.5 G/DL 1.9-3.7 CALC A/G RATIO (test code = 223) 1.2 RATIO 1.0-2.6 BILIRUBIN, TOTAL (test code = 2207) 0.4 MG/DL <=1.2 ALKALINE PHOSPHATASE (test code = 2204) 78 U/L 40-120 AST (test code = 2218) 47 U/L 9-40 H ALT (test code = 2219) 32 U/L 5-40 LIPID [id number] 06:49:41* Test Item Value Reference Range Interpretation Comme nts CHOLESTEROL (test code = 2210) 174 MG/DL <200 TRIGLYCERIDES (test code = 2232) 86 MG/DL <150 HDL CHOLESTEROL (test code = 2220) 42 MG/DL >39 CALC LDL CHOL (test code = 2237) 113 MG/DL <100 H NOTE: CALCULATED LDL IS BASED ON SACHIN-STEWARD METHOD WHICHINCLUDES ADJUSTABLE TRIGLYCERIDE:VLDL CHOLESTEROL RATIO.THIS FACTOR VARIES BY MEASURED TRIGLYCERIDE AND NON-HDLCHOLESTEROL CONCENTRATIONS WITH INCREASED CALCULATED LDL SEENIN HIGHER TRIGLYCERIDE OR LOWER NON-HDL SPECIMENS. FOR MOREINFORMATION, SEE CLIENT ANNOUNCEMENT AT [email or web address] /[email or web address]-[email or web address] RISK RATIO LDL/HDL (test code = 2238) 2.69 RATIO <3.22 HEMOGLOBIN [id number] 04:59:26* Test Item Value Reference Range Interpretation Comme nts HEMOGLOBIN A1c (test code = 16562) 5.6 % 4.2-5.6 UNLESS OTHERWISE INDICATED, ALL TESTING PERFORMED AT [facility] [address] [place] [address] MAINTENANCE HELPER UTILITY ENGINEER: DRAKE MARTÍNEZ M.D. CLIA NUMBER [id number] [facility] [place]. [id number] CBC W/AUTO DIFF WITH [id number] 03:15:33* Test Item Value Reference Range Interpretation Comme nts WBC (test code = 1001) 5.5 K/UL 3.5-11.0 RBC (test code = 1002) 4.94 M/UL 3.80-5.40 HEMOGLOBIN (test code = 1003) 13.7 G/DL 11.5-15.5 HEMATOCRIT (test code = 1004) 41.2 % 34.0-45.0 MCV (test code = 1005) 83.4 fL 80.0-99.0 MCH (test code = 1006) 27.7 PG 25.0-33.0 MCHC (test code = 1007) 33.3 G/DL 31.0-36.0 RDW (test code = 1038) 14.5 % 11.5-15.0 NEUTROPHILS (test code = 1008) 60.7 % LYMPHOCYTES (test code = 1010) 32.1 % MONOCYTES (test code = 1011) 6.4 % EOSINOPHILS (test code = 1012) 0.4 % BASOPHILS (test code = 1013) 0.2 % IMMATURE GRANULOCYTES (test code = 1036) 0.2 % NUCLEATED RBCS (test code = 1065) 0.0 /100 WBC'S See_Comment [Automated messa ge] The system which generated this result transmitted reference range: 0.0. The reference range was not used to interpret this result as normal/abnormal. PLATELET COUNT (test code = 1015) 313 K/UL 130-400 ABSOLUTE NEUTROPHILS (test code = 1066) 3.31 K/UL 1.50-7.50 ABSOLUTE LYMPHOCYTES (test code = 1067) 1.75 K/UL 1.00-4.00 ABSOLUTE MONOCYTES (test code = 1068) 0.35 K/UL 0.20-1.00 ABSOLUTE EOSINOPHILS (test code = 1040) 0.02 K/UL 0.00-0.50 ABSOLUTE BASOPHILS (test code = 1069) 0.01 K/UL 0.00-0.20 ABS IMMATURE GRANULOCYTES (test code = 1020) 0.01 K/UL 0.00-0.10 ABS NUCLEATED RBCS (test code = 83298) 0.00 K/UL 0.00-0.11 CBC W/AUTO [id number] 00:00:00* Test Item Value Reference Range Interpretation Comme nts WBC (test code = 1001) 5.5 K/UL RBC (test code = 1002) 4.94 M/UL HEMOGLOBIN (test code = 1003) 13.7 G/DL HEMATOCRIT (test code = 1004) 41.2 % MCV (test code = 1005) 83.4 fL MCH (test code = 1006) 27.7 PG MCHC (test code = 1007) 33.3 G/DL RDW (test code = 1038) 14.5 % NEUTROPHILS (test code = 1008) 60.7 % LYMPHOCYTES (test code = 1010) 32.1 % MONOCYTES (test code = 1011) 6.4 % EOSINOPHILS (test code = 1012) 0.4 % BASOPHILS (test code = 1013) 0.2 % IMMATURE GRANULOCYTES (test code = 1036) 0.2 % NUCLEATED RBCS (test code = 1065) 0.0 /100WBC'S PLATELET COUNT (test code = 1015) 313 K/UL ABSOLUTE NEUTROPHILS (test c ode = 1066) 3.31 K/UL ABSOLUTE LYMPHOCYTES (test c ode = 1067) 1.75 K/UL ABSOLUTE MONOCYTES (test cod e = 1068) 0.35 K/UL ABSOLUTE EOSINOPHILS (test c ode = 1040) 0.02 K/UL ABSOLUTE BASOPHILS (test cod e = 1069) 0.01 K/UL ABS IMMATURE GRANULOCYTES (t est code = 1020) 0.01 K/UL ABS NUCLEATED RBCS (test cod e = 37893) 0.00 K/UL Devang BrownCOMPREHENSIVE METABOLIC [id number] 00:00:00* Test Item Value Reference Range Interpretation Comme nts GLUCOSE (test code = 2217) 79 MG/DL BUN (test code = 2208) 8 MG/DL CREATININE (test code = 2214) 0.66 MG/DL eGFR (2020 CKD-EPI) (test code = 11833) 109 ML/MIN/1.73 CALC BUN/CREAT (test code = 2235) 12 RATIO SODIUM (test code = 2231) 138 MEQ/L POTASSIUM (test code = 2228) 4.1 MEQ/L CHLORIDE (test code = 2215) 101 MEQ/L CARBON DIOXIDE (test code = 2206) 19 MEQ/L CALCIUM (test code = 2209) 9.2 MG/DL PROTEIN, TOTAL (test code = 2229) 7.8 G/DL ALBUMIN (test code = 2201) 4.3 G/DL CALC GLOBULIN (test code = 2240) 3.5 G/DL CALC A/G RATIO (test code = 2234) 1.2 RATIO BILIRUBIN, TOTAL (test code = 2207) 0.4 MG/DL ALKALINE PHOSPHATASE (test code = 2204) 78 U/L AST (test code = 2218) 47 U/L ALT (test code = 2219) 32 U/L Devang BrownLIPID [id number] 00:00:00* Test Item Value Reference Range Interpretation Comme nts CHOLESTEROL (test code = 2210) 174 MG/DL TRIGLYCERIDES (test code = 2232) 86 MG/DL HDL CHOLESTEROL (test code = 2220) 42 MG/DL CALC LDL CHOL (test code = 2237) 113 MG/DL RISK RATIO LDL/HDL (test cod e = 2238) 2.69 RATIO Devang BrownHEMOGLOBIN [id number] 00:00:00* Test Item Value Reference Range Interpretation Comme nts HEMOGLOBIN A1c (test code = 28127) 5.6 % Devang BrownCBC W/AUTO [id number] 00:00:00* Test Item Value Reference Range Interpretation Comme nts WBC (test code = 1001) 5.5 K/UL RBC (test code = 1002) 4.94 M/UL HEMOGLOBIN (test code = 1003) 13.7 G/DL HEMATOCRIT (test code = 1004) 41.2 % MCV (test code = 1005) 83.4 fL MCH (test code = 1006) 27.7 PG MCHC (test code = 1007) 33.3 G/DL RDW (test code = 1038) 14.5 % NEUTROPHILS (test code = 1008) 60.7 % LYMPHOCYTES (test code = 1010) 32.1 % MONOCYTES (test code = 1011) 6.4 % EOSINOPHILS (test code = 1012) 0.4 % BASOPHILS (test code = 1013) 0.2 % IMMATURE GRANULOCYTES (test code = 1036) 0.2 % NUCLEATED RBCS (test code = 1065) 0.0 /100WBC'S PLATELET COUNT (test code = 1015) 313 K/UL ABSOLUTE NEUTROPHILS (test c ode = 1066) 3.31 K/UL ABSOLUTE LYMPHOCYTES (test c ode = 1067) 1.75 K/UL ABSOLUTE MONOCYTES (test cod e = 1068) 0.35 K/UL ABSOLUTE EOSINOPHILS (test c ode = 1040) 0.02 K/UL ABSOLUTE BASOPHILS (test cod e = 1069) 0.01 K/UL ABS IMMATURE GRANULOCYTES (t est code = 1020) 0.01 K/UL ABS NUCLEATED RBCS (test cod e = 22713) 0.00 K/UL Devang BrownCOMPREHENSIVE METABOLIC [id number] 00:00:00* Test Item Value Reference Range Interpretation Comme nts GLUCOSE (test code = 2217) 79 MG/DL BUN (test code = 2208) 8 MG/DL CREATININE (test code = 2214) 0.66 MG/DL eGFR (2020 CKD-EPI) (test code = 06700) 109 ML/MIN/1.73 CALC BUN/CREAT (test code = 2235) 12 RATIO SODIUM (test code = 2231) 138 MEQ/L POTASSIUM (test code = 2228) 4.1 MEQ/L CHLORIDE (test code = 2215) 101 MEQ/L CARBON DIOXIDE (test code = 2206) 19 MEQ/L CALCIUM (test code = 2209) 9.2 MG/DL PROTEIN, TOTAL (test code = 2229) 7.8 G/DL ALBUMIN (test code = 2201) 4.3 G/DL CALC GLOBULIN (test code = 2240) 3.5 G/DL CALC A/G RATIO (test code = 2234) 1.2 RATIO BILIRUBIN, TOTAL (test code = 2207) 0.4 MG/DL ALKALINE PHOSPHATASE (test code = 2204) 78 U/L AST (test code = 2218) 47 U/L ALT (test code = 2219) 32 U/L Devang BrownLIPID [id number] 00:00:00* Test Item Value Reference Range Interpretation Comme nts CHOLESTEROL (test code = 2210) 174 MG/DL TRIGLYCERIDES (test code = 2232) 86 MG/DL HDL CHOLESTEROL (test code = 2220) 42 MG/DL CALC LDL CHOL (test code = 2237) 113 MG/DL RISK RATIO LDL/HDL (test cod e = 2238) 2.69 RATIO Devang rBownHEMOGLOBIN [id number] 00:00:00* Test Item Value Reference Range Interpretation Comme nts HEMOGLOBIN A1c (test code = 11157) 5.6 % Devang BrownCBC W/AUTO [id number] 00:00:00* Test Item Value Reference Range Interpretation Comme nts WBC (test code = 1001) 5.5 K/UL RBC (test code = 1002) 4.94 M/UL HEMOGLOBIN (test code = 1003) 13.7 G/DL HEMATOCRIT (test code = 1004) 41.2 % MCV (test code = 1005) 83.4 fL MCH (test code = 1006) 27.7 PG MCHC (test code = 1007) 33.3 G/DL RDW (test code = 1038) 14.5 % NEUTROPHILS (test code = 1008) 60.7 % LYMPHOCYTES (test code = 1010) 32.1 % MONOCYTES (test code = 1011) 6.4 % EOSINOPHILS (test code = 1012) 0.4 % BASOPHILS (test code = 1013) 0.2 % IMMATURE GRANULOCYTES (test code = 1036) 0.2 % NUCLEATED RBCS (test code = 1065) 0.0 /100WBC'S PLATELET COUNT (test code = 1015) 313 K/UL ABSOLUTE NEUTROPHILS (test c ode = 1066) 3.31 K/UL ABSOLUTE LYMPHOCYTES (test c ode = 1067) 1.75 K/UL ABSOLUTE MONOCYTES (test cod e = 1068) 0.35 K/UL ABSOLUTE EOSINOPHILS (test c ode = 1040) 0.02 K/UL ABSOLUTE BASOPHILS (test cod e = 1069) 0.01 K/UL ABS IMMATURE GRANULOCYTES (t est code = 1020) 0.01 K/UL ABS NUCLEATED RBCS (test cod e = 40219) 0.00 K/UL Devang BrownCOMPREHENSIVE METABOLIC [id number] 00:00:00* Test Item Value Reference Range Interpretation Comme nts GLUCOSE (test code = 2217) 79 MG/DL BUN (test code = 2208) 8 MG/DL CREATININE (test code = 2214) 0.66 MG/DL eGFR (2020 CKD-EPI) (test code = 18050) 109 ML/MIN/1.73 CALC BUN/CREAT (test code = 2235) 12 RATIO SODIUM (test code = 2231) 138 MEQ/L POTASSIUM (test code = 2228) 4.1 MEQ/L CHLORIDE (test code = 2215) 101 MEQ/L CARBON DIOXIDE (test code = 2206) 19 MEQ/L CALCIUM (test code = 2209) 9.2 MG/DL PROTEIN, TOTAL (test code = 2229) 7.8 G/DL ALBUMIN (test code = 2201) 4.3 G/DL CALC GLOBULIN (test code = 2240) 3.5 G/DL CALC A/G RATIO (test code = 2234) 1.2 RATIO BILIRUBIN, TOTAL (test code = 2207) 0.4 MG/DL ALKALINE PHOSPHATASE (test code = 2204) 78 U/L AST (test code = 2218) 47 U/L ALT (test code = 2219) 32 U/L Devang BrownLIPID [id number] 00:00:00* Test Item Value Reference Range Interpretation Comme nts CHOLESTEROL (test code = 2210) 174 MG/DL TRIGLYCERIDES (test code = 2232) 86 MG/DL HDL CHOLESTEROL (test code = 2220) 42 MG/DL CALC LDL CHOL (test code = 2237) 113 MG/DL RISK RATIO LDL/HDL (test cod e = 2238) 2.69 RATIO Devang BrownHEMOGLOBIN [id number] 00:00:00* Test Item Value Reference Range Interpretation Comme nts HEMOGLOBIN A1c (test code = 13163) 5.6 % Devang BrownCBC W/AUTO [id number] 00:00:00* Test Item Value Reference Range Interpretation Comme nts WBC (test code = 1001) 5.5 K/UL RBC (test code = 1002) 4.94 M/UL HEMOGLOBIN (test code = 1003) 13.7 G/DL HEMATOCRIT (test code = 1004) 41.2 % MCV (test code = 1005) 83.4 fL MCH (test code = 1006) 27.7 PG MCHC (test code = 1007) 33.3 G/DL RDW (test code = 1038) 14.5 % NEUTROPHILS (test code = 1008) 60.7 % LYMPHOCYTES (test code = 1010) 32.1 % MONOCYTES (test code = 1011) 6.4 % EOSINOPHILS (test code = 1012) 0.4 % BASOPHILS (test code = 1013) 0.2 % IMMATURE GRANULOCYTES (test code = 1036) 0.2 % NUCLEATED RBCS (test code = 1065) 0.0 /100WBC'S PLATELET COUNT (test code = 1015) 313 K/UL ABSOLUTE NEUTROPHILS (test c ode = 1066) 3.31 K/UL ABSOLUTE LYMPHOCYTES (test c ode = 1067) 1.75 K/UL ABSOLUTE MONOCYTES (test cod e = 1068) 0.35 K/UL ABSOLUTE EOSINOPHILS (test c ode = 1040) 0.02 K/UL ABSOLUTE BASOPHILS (test cod e = 1069) 0.01 K/UL ABS IMMATURE GRANULOCYTES (t est code = 1020) 0.01 K/UL ABS NUCLEATED RBCS (test cod e = 37283) 0.00 K/UL Devang BrownCOMPREHENSIVE METABOLIC [id number] 00:00:00* Test Item Value Reference Range Interpretation Comme nts GLUCOSE (test code = 2217) 79 MG/DL BUN (test code = 2208) 8 MG/DL CREATININE (test code = 2214) 0.66 MG/DL eGFR (2020 CKD-EPI) (test code = 65142) 109 ML/MIN/1.73 CALC BUN/CREAT (test code = 2235) 12 RATIO SODIUM (test code = 2231) 138 MEQ/L POTASSIUM (test code = 2228) 4.1 MEQ/L CHLORIDE (test code = 2215) 101 MEQ/L CARBON DIOXIDE (test code = 2206) 19 MEQ/L CALCIUM (test code = 2209) 9.2 MG/DL PROTEIN, TOTAL (test code = 2229) 7.8 G/DL ALBUMIN (test code = 2201) 4.3 G/DL CALC GLOBULIN (test code = 2240) 3.5 G/DL CALC A/G RATIO (test code = 2234) 1.2 RATIO BILIRUBIN, TOTAL (test code = 2207) 0.4 MG/DL ALKALINE PHOSPHATASE (test code = 2204) 78 U/L AST (test code = 2218) 47 U/L ALT (test code = 2219) 32 U/L Devang BrownLIPID [id number] 00:00:00* Test Item Value Reference Range Interpretation Comme nts CHOLESTEROL (test code = 2210) 174 MG/DL TRIGLYCERIDES (test code = 2232) 86 MG/DL HDL CHOLESTEROL (test code = 2220) 42 MG/DL CALC LDL CHOL (test code = 2237) 113 MG/DL RISK RATIO LDL/HDL (test cod e = 2238) 2.69 RATIO Devang BrownHEMOGLOBIN [id number] 00:00:00* Test Item Value Reference Range Interpretation Comme nts HEMOGLOBIN A1c (test code = 86356) 5.6 % Devang Davis KevinCBC W/AUTO [id number] 00:00:00* Test Item Value Reference Range Interpretation Comme nts WBC (test code = 1001) 5.5 K/UL RBC (test code = 1002) 4.94 M/UL HEMOGLOBIN (test code = 1003) 13.7 G/DL HEMATOCRIT (test code = 1004) 41.2 % MCV (test code = 1005) 83.4 fL MCH (test code = 1006) 27.7 PG MCHC (test code = 1007) 33.3 G/DL RDW (test code = 1038) 14.5 % NEUTROPHILS (test code = 1008) 60.7 % LYMPHOCYTES (test code = 1010) 32.1 % MONOCYTES (test code = 1011) 6.4 % EOSINOPHILS (test code = 1012) 0.4 % BASOPHILS (test code = 1013) 0.2 % IMMATURE GRANULOCYTES (test code = 1036) 0.2 % NUCLEATED RBCS (test code = 1065) 0.0 /100WBC'S PLATELET COUNT (test code = 1015) 313 K/UL ABSOLUTE NEUTROPHILS (test c ode = 1066) 3.31 K/UL ABSOLUTE LYMPHOCYTES (test c ode = 1067) 1.75 K/UL ABSOLUTE MONOCYTES (test cod e = 1068) 0.35 K/UL ABSOLUTE EOSINOPHILS (test c ode = 1040) 0.02 K/UL ABSOLUTE BASOPHILS (test cod e = 1069) 0.01 K/UL ABS IMMATURE GRANULOCYTES (t est code = 1020) 0.01 K/UL ABS NUCLEATED RBCS (test cod e = 65878) 0.00 K/UL Devang Susan KevinCOMPREHENSIVE METABOLIC [id number] 00:00:00* Test Item Value Reference Range Interpretation Comme nts GLUCOSE (test code = 2217) 79 MG/DL BUN (test code = 2208) 8 MG/DL CREATININE (test code = 2214) 0.66 MG/DL eGFR (2020 CKD-EPI) (test code = 72769) 109 ML/MIN/1.73 CALC BUN/CREAT (test code = 2235) 12 RATIO SODIUM (test code = 2231) 138 MEQ/L POTASSIUM (test code = 2228) 4.1 MEQ/L CHLORIDE (test code = 2215) 101 MEQ/L CARBON DIOXIDE (test code = 2206) 19 MEQ/L CALCIUM (test code = 2209) 9.2 MG/DL PROTEIN, TOTAL (test code = 2229) 7.8 G/DL ALBUMIN (test code = 2201) 4.3 G/DL CALC GLOBULIN (test code = 2240) 3.5 G/DL CALC A/G RATIO (test code = 2234) 1.2 RATIO BILIRUBIN, TOTAL (test code = 2207) 0.4 MG/DL ALKALINE PHOSPHATASE (test code = 2204) 78 U/L AST (test code = 2218) 47 U/L ALT (test code = 2219) 32 U/L Devang BrownLIPID [id number] 00:00:00* Test Item Value Reference Range Interpretation Comme nts CHOLESTEROL (test code = 2210) 174 MG/DL TRIGLYCERIDES (test code = 2232) 86 MG/DL HDL CHOLESTEROL (test code = 2220) 42 MG/DL CALC LDL CHOL (test code = 2237) 113 MG/DL RISK RATIO LDL/HDL (test cod e = 2238) 2.69 RATIO Devang BrownHEMOGLOBIN [id number] 00:00:00* Test Item Value Reference Range Interpretation Comme nts HEMOGLOBIN A1c (test code = 02811) 5.6 % Devang BrownIRON BINDING CAPACITY AND IRON AND % [id number] 09:23:00* Test Item Value Reference Range Interpretation Comme nts IRON, SERUM (test code = 222) 94 UG/DL 37-145 UNSATURATED IBC (test code = 40308) 312 UG/DL 112-347 CALC TOTAL IBC (test code = 2076) 406 UG/DL 250-450 CALC % IRON SAT (test code = 2078) 23 % 20-50 [facility] has impo rtant pathology staff changes effective 12/24/2022. New pathology staff will provide uninterrupted, excellent patient care and clinical consultation. See URL: [email or web address]. UNLESS OTHERWISE INDICATED, ALL TESTING PERFORMED AT [facility] [address] [place] [id number] MAINTENANCE HELPER UTILITY ENGINEER: DRAKE MARTÍNEZ M.D. CLIA NUMBER [id number] [facility] [place]. [id number] 09:22:43* Test Item Value Reference Range Interpretation Comme nts TRANSFERRIN (test code = 4936) 332 MG/DL 200-360 [id number] 06:34:58* Test Item Value Reference Range Interpretation Comme nts FERRITIN (test code = 2075) 54 NG/ML 13-200 VITAMIN B 12 AND FOLIC [id number] 06:34:58* Test Item Value Reference Range Interpretation Comme nts VITAMIN B-12 (test code = 2840) 556 PG/ML 200-950 FOLIC ACID (test code = 2695) 15.5 UG/L SEE BELOW INTERPRETI VE RANGES DEFICIENCY . . . . . . . . . . . . . . . UG/L <4.0 POSSIBLE DEFICIENCY. . . . . . . . . . . UG/L 4.0-5.9 SUFFICIENT . . . . . . . . . . . . . . . UG/L >=6.0 HEMOGLOBIN [id number] 04:32:44* Test Item Value Reference Range Interpretation Comme [facility] HEMOGLOBIN A1c (test code = 10126) 5.4 % 4.2-5.6 COMPREHENSIVE METABOLIC [id number] 04:14:24* Test Item Value Reference Range Interpretation Comme [facility] GLUCOSE (test code = 2216) 97 MG/DL 70-99 BUN (test code = 2207) 12 MG/DL 6-20 CREATININE (test code = 2213) 0.77 MG/DL 0.60-1.30 eGFR (2020 CKD-EPI) (test code = 69184) 96 ML/MIN/1.73 >60 CALC BUN/CREAT (test code = 5) 16 RATIO 6-28 SODIUM (test code = 2230) 142 MEQ/L 133-146 POTASSIUM (test code = 2228) 3.4 MEQ/L 3.5-5.4 L CHLORIDE (test code = 2215) 99 MEQ/L 95-107 CARBON DIOXIDE (test code = 2206) 27 MEQ/L 19-31 CALCIUM (test code = 2208) 9.8 MG/DL 8.5-10.5 PROTEIN, TOTAL (test code = 2228) 7.9 G/DL 6.1-8.3 ALBUMIN (test code = 2200) 4.6 G/DL 3.5-5.2 CALC GLOBULIN (test code = 2240) 3.3 G/DL 1.9-3.7 CALC A/G RATIO (test code = 2233) 1.4 RATIO 1.0-2.6 BILIRUBIN, TOTAL (test code = 2206) 0.4 MG/DL See_Comment [Automated me ssage] The system which generated this result transmitted reference range: <=1.2. The reference range was not used to interpret this result as normal/abnormal. ALKALINE PHOSPHATASE (test code = 2203) 76 U/L 40-118 AST (test code = 2218) 44 U/L 9-40 H ALT (test code = 2219) 38 U/L 5-40 LIPID [id number] 04:14:24* Test Item Value Reference Range Interpretation Comme nts CHOLESTEROL (test code = 2210) 223 MG/DL <200 H TRIGLYCERIDES (test code = 2232) 135 MG/DL <150 HDL CHOLESTEROL (test code = 2220) 49 MG/DL >39 CALC LDL CHOL (test code = 2237) 148 MG/DL <100 H NOTE: CALCULATED LDL IS BASED ON SACHIN-STEWARD METHOD WHICHINCLUDES ADJUSTABLE TRIGLYCERIDE:VLDL CHOLESTEROL RATIO.THIS FACTOR VARIES BY MEASURED TRIGLYCERIDE AND NON-HDLCHOLESTEROL CONCENTRATIONS WITH INCREASED CALCULATED LDL SEENIN HIGHER TRIGLYCERIDE OR LOWER NON-HDL SPECIMENS. FOR MOREINFORMATION, SEE CLIENT ANNOUNCEMENT AT [email or web address] RISK RATIO LDL/HDL (test code = 2238) 3.02 RATIO <3.22 CBC W/AUTO DIFF WITH [id number] 03:51:22* Test Item Value Reference Range Interpretation Comme nts WBC (test code = 1001) 5.2 K/UL 3.5-11.0 RBC (test code = 1002) 4.77 M/UL 3.80-5.40 HEMOGLOBIN (test code = 1003) 14.3 G/DL 11.5-15.5 HEMATOCRIT (test code = 1004) 41.8 % 34.0-45.0 MCV (test code = 1005) 87.6 fL 80.0-99.0 MCH (test code = 1006) 30.0 PG 25.0-33.0 MCHC (test code = 1007) 34.2 G/DL 31.0-36.0 RDW (test code = 1038) 12.1 % 11.5-15.0 NEUTROPHILS (test code = 1008) 51.1 % LYMPHOCYTES (test code = 1010) 41.7 % MONOCYTES (test code = 1011) 5.4 % EOSINOPHILS (test code = 1012) 1.2 % BASOPHILS (test code = 1013) 0.4 % IMMATURE GRANULOCYTES (test code = 1036) 0.2 % NUCLEATED RBCS (test code = 1065) 0.0 /100 WBC'S See_Comment [Automated [employer]] The system which generated this result transmitted reference range: 0.0. The reference range was not used to interpret this result as normal/abnormal. PLATELET COUNT (test code = 1015) 322 K/UL 130-400 ABSOLUTE NEUTROPHILS (test code = 1066) 2.63 K/UL 1.50-7.50 ABSOLUTE LYMPHOCYTES (test code = 1067) 2.15 K/UL 1.00-4.00 ABSOLUTE MONOCYTES (test code = 1068) 0.28 K/UL 0.20-1.00 ABSOLUTE EOSINOPHILS (test code = 1040) 0.06 K/UL 0.00-0.50 ABSOLUTE BASOPHILS (test code = 1069) 0.02 K/UL 0.00-0.20 ABS IMMATURE GRANULOCYTES (test code = 1020) 0.01 K/UL 0.00-0.10 ABS NUCLEATED RBCS (test code = 57372) 0.00 K/UL 0.00-0.11 [id number] 00:00:00* Test Item Value Reference Range Interpretation Comme nts TRANSFERRIN (test code = 4936) 332 MG/DL Devang BrownVITAMIN B 12 AND FOLIC [id number] 00:00:00* Test Item Value Reference Range Interpretation Comme nts VITAMIN B-12 (test code = 2840) 556 PG/ML FOLIC ACID (test code = 2695) 15.5 UG/L Devang BrownIRON BINDING CAPACITY AND IRON AND % [id number] 00:00:00* Test Item Value Reference Range Interpretation Comme nts IRON, SERUM (test code = 2222) 94 UG/DL UNSATURATED IBC (test code = 02052) 312 UG/DL CALC TOTAL IBC (test code = 7) 406 UG/DL CALC % IRON SAT (test code = 9) 23 % Devang BrownCOMPREHENSIVE METABOLIC [id number] 00:00:00* Test Item Value Reference Range Interpretation Comme nts GLUCOSE (test code = 2217) 97 MG/DL BUN (test code = 2208) 12 MG/DL CREATININE (test code = 2214) 0.77 MG/DL eGFR (2020 CKD-EPI) (test co de = 46091) 96 ML/MIN/1.73 CALC BUN/CREAT (test code = 2235) 16 RATIO SODIUM (test code = 2231) 142 MEQ/L POTASSIUM (test code = 2228) 3.4 MEQ/L CHLORIDE (test code = 2215) 99 MEQ/L CARBON DIOXIDE (test code = 2206) 27 MEQ/L CALCIUM (test code = 2209) 9.8 MG/DL PROTEIN, TOTAL (test code = 2229) 7.9 G/DL ALBUMIN (test code = 2201) 4.6 G/DL CALC GLOBULIN (test code = 2240) 3.3 G/DL CALC A/G RATIO (test code = 2234) 1.4 RATIO BILIRUBIN, TOTAL (test code = 2207) 0.4 MG/DL ALKALINE PHOSPHATASE (test code = 2204) 76 U/L AST (test code = 2218) 44 U/L ALT (test code = 2219) 38 U/L Devang Davis KevinLIPID [id number] 00:00:00* Test Item Value Reference Range Interpretation Comme nts CHOLESTEROL (test code = 2210) 223 MG/DL TRIGLYCERIDES (test code = 2232) 135 MG/DL HDL CHOLESTEROL (test code = 2220) 49 MG/DL CALC LDL CHOL (test code = 2237) 148 MG/DL RISK RATIO LDL/HDL (test cod e = 2238) 3.02 RATIO Devang Davis KevinCBC W/AUTO [id number] 00:00:00* Test Item Value Reference Range Interpretation Comme nts WBC (test code = 1001) 5.2 K/UL RBC (test code = 1002) 4.77 M/UL HEMOGLOBIN (test code = 1003) 14.3 G/DL HEMATOCRIT (test code = 1004) 41.8 % MCV (test code = 1005) 87.6 fL MCH (test code = 1006) 30.0 PG MCHC (test code = 1007) 34.2 G/DL RDW (test code = 1038) 12.1 % NEUTROPHILS (test code = 1008) 51.1 % LYMPHOCYTES (test code = 1010) 41.7 % MONOCYTES (test code = 1011) 5.4 % EOSINOPHILS (test code = 1012) 1.2 % BASOPHILS (test code = 1013) 0.4 % IMMATURE GRANULOCYTES (test code = 1036) 0.2 % NUCLEATED RBCS (test code = 1065) 0.0 /100WBC'S PLATELET COUNT (test code = 1015) 322 K/UL ABSOLUTE NEUTROPHILS (test c ode = 1066) 2.63 K/UL ABSOLUTE LYMPHOCYTES (test c ode = 1067) 2.15 K/UL ABSOLUTE MONOCYTES (test cod e = 1068) 0.28 K/UL ABSOLUTE EOSINOPHILS (test c ode = 1040) 0.06 K/UL ABSOLUTE BASOPHILS (test cod e = 1069) 0.02 K/UL ABS IMMATURE GRANULOCYTES (t est code = 1020) 0.01 K/UL ABS NUCLEATED RBCS (test cod e = 67877) 0.00 K/UL Devang BrownHEMOGLOBIN [id number] 00:00:00* Test Item Value Reference Range Interpretation Comme nts HEMOGLOBIN A1c (test code = 15188) 5.4 % Devang [id number] 00:00:00* Test Item Value Reference Range Interpretation Comme nts FERRITIN (test code = 2075) 54 NG/ML Devang Davis [id number] 00:00:00* Test Item Value Reference Range Interpretation Comme nts TRANSFERRIN (test code = 4936) 332 MG/DL Devang BrownVITAMIN B 12 AND FOLIC [id number] 00:00:00* Test Item Value Reference Range Interpretation Comme nts VITAMIN B-12 (test code = 2840) 556 PG/ML FOLIC ACID (test code = 2695) 15.5 UG/L Devang BrownIRON BINDING CAPACITY AND IRON AND % [id number] 00:00:00* Test Item Value Reference Range Interpretation Comme nts IRON, SERUM (test code = 2222) 94 UG/DL UNSATURATED IBC (test code = 71055) 312 UG/DL CALC TOTAL IBC (test code = 7) 406 UG/DL CALC % IRON SAT (test code = 9) 23 % Devang Davis KevinCOMPREHENSIVE METABOLIC [id number] 00:00:00* Test Item Value Reference Range Interpretation Comme nts GLUCOSE (test code = 2217) 97 MG/DL BUN (test code = 2208) 12 MG/DL CREATININE (test code = 2214) 0.77 MG/DL eGFR (2020 CKD-EPI) (test co de = 27078) 96 ML/MIN/1.73 CALC BUN/CREAT (test code = 2235) 16 RATIO SODIUM (test code = 2231) 142 MEQ/L POTASSIUM (test code = 2228) 3.4 MEQ/L CHLORIDE (test code = 2215) 99 MEQ/L CARBON DIOXIDE (test code = 2206) 27 MEQ/L CALCIUM (test code = 2209) 9.8 MG/DL PROTEIN, TOTAL (test code = 2229) 7.9 G/DL ALBUMIN (test code = 2201) 4.6 G/DL CALC GLOBULIN (test code = 2240) 3.3 G/DL CALC A/G RATIO (test code = 2234) 1.4 RATIO BILIRUBIN, TOTAL (test code = 2207) 0.4 MG/DL ALKALINE PHOSPHATASE (test code = 2204) 76 U/L AST (test code = 2218) 44 U/L ALT (test code = 2219) 38 U/L Devang BrownLIPID [id number] 00:00:00* Test Item Value Reference Range Interpretation Comme nts CHOLESTEROL (test code = 2210) 223 MG/DL TRIGLYCERIDES (test code = 2232) 135 MG/DL HDL CHOLESTEROL (test code = 2220) 49 MG/DL CALC LDL CHOL (test code = 2237) 148 MG/DL RISK RATIO LDL/HDL (test cod e = 2238) 3.02 RATIO Devang BrownCBC W/AUTO [id number] 00:00:00* Test Item Value Reference Range Interpretation Comme nts WBC (test code = 1001) 5.2 K/UL RBC (test code = 1002) 4.77 M/UL HEMOGLOBIN (test code = 1003) 14.3 G/DL HEMATOCRIT (test code = 1004) 41.8 % MCV (test code = 1005) 87.6 fL MCH (test code = 1006) 30.0 PG MCHC (test code = 1007) 34.2 G/DL RDW (test code = 1038) 12.1 % NEUTROPHILS (test code = 1008) 51.1 % LYMPHOCYTES (test code = 1010) 41.7 % MONOCYTES (test code = 1011) 5.4 % EOSINOPHILS (test code = 1012) 1.2 % BASOPHILS (test code = 1013) 0.4 % IMMATURE GRANULOCYTES (test code = 1036) 0.2 % NUCLEATED RBCS (test code = 1065) 0.0 /100WBC'S PLATELET COUNT (test code = 1015) 322 K/UL ABSOLUTE NEUTROPHILS (test c ode = 1066) 2.63 K/UL ABSOLUTE LYMPHOCYTES (test c ode = 1067) 2.15 K/UL ABSOLUTE MONOCYTES (test cod e = 1068) 0.28 K/UL ABSOLUTE EOSINOPHILS (test c ode = 1040) 0.06 K/UL ABSOLUTE BASOPHILS (test cod e = 1069) 0.02 K/UL ABS IMMATURE GRANULOCYTES (t est code = 1020) 0.01 K/UL ABS NUCLEATED RBCS (test cod e = 70909) 0.00 K/UL Devang BrownHEMOGLOBIN [id number] 00:00:00* Test Item Value Reference Range Interpretation Comme nts HEMOGLOBIN A1c (test code = 25253) 5.4 % Devang [id number] 00:00:00* Test Item Value Reference Range Interpretation Comme nts FERRITIN (test code = 2075) 54 NG/ML Devang [id number] 00:00:00* Test Item Value Reference Range Interpretation Comme nts TRANSFERRIN (test code = 4936) 332 MG/DL Devang BrownVITAMIN B 12 AND FOLIC [id number] 00:00:00* Test Item Value Reference Range Interpretation Comme nts VITAMIN B-12 (test code = 2840) 556 PG/ML FOLIC ACID (test code = 2695) 15.5 UG/L Devang BrownIRON BINDING CAPACITY AND IRON AND % [id number] 00:00:00* Test Item Value Reference Range Interpretation Comme nts IRON, SERUM (test code = 2222) 94 UG/DL UNSATURATED IBC (test code = 06034) 312 UG/DL CALC TOTAL IBC (test code = 7) 406 UG/DL CALC % IRON SAT (test code = 9) 23 % Devang Davis KevinCOMPREHENSIVE METABOLIC [id number] 00:00:00* Test Item Value Reference Range Interpretation Comme nts GLUCOSE (test code = 2217) 97 MG/DL BUN (test code = 2208) 12 MG/DL CREATININE (test code = 2214) 0.77 MG/DL eGFR (2020 CKD-EPI) (test co de = 36588) 96 ML/MIN/1.73 CALC BUN/CREAT (test code = 2235) 16 RATIO SODIUM (test code = 2231) 142 MEQ/L POTASSIUM (test code = 2228) 3.4 MEQ/L CHLORIDE (test code = 2215) 99 MEQ/L CARBON DIOXIDE (test code = 2206) 27 MEQ/L CALCIUM (test code = 2209) 9.8 MG/DL PROTEIN, TOTAL (test code = 2229) 7.9 G/DL ALBUMIN (test code = 2201) 4.6 G/DL CALC GLOBULIN (test code = 2240) 3.3 G/DL CALC A/G RATIO (test code = 2234) 1.4 RATIO BILIRUBIN, TOTAL (test code = 2207) 0.4 MG/DL ALKALINE PHOSPHATASE (test code = 2204) 76 U/L AST (test code = 2218) 44 U/L ALT (test code = 2219) 38 U/L Devang Davis KevinLIPID [id number] 00:00:00* Test Item Value Reference Range Interpretation Comme nts CHOLESTEROL (test code = 2210) 223 MG/DL TRIGLYCERIDES (test code = 2232) 135 MG/DL HDL CHOLESTEROL (test code = 2220) 49 MG/DL CALC LDL CHOL (test code = 2237) 148 MG/DL RISK RATIO LDL/HDL (test cod e = 2238) 3.02 RATIO Devang BrownCBC W/AUTO [id number] 00:00:00* Test Item Value Reference Range Interpretation Comme nts WBC (test code = 1001) 5.2 K/UL RBC (test code = 1002) 4.77 M/UL HEMOGLOBIN (test code = 1003) 14.3 G/DL HEMATOCRIT (test code = 1004) 41.8 % MCV (test code = 1005) 87.6 fL MCH (test code = 1006) 30.0 PG MCHC (test code = 1007) 34.2 G/DL RDW (test code = 1038) 12.1 % NEUTROPHILS (test code = 1008) 51.1 % LYMPHOCYTES (test code = 1010) 41.7 % MONOCYTES (test code = 1011) 5.4 % EOSINOPHILS (test code = 1012) 1.2 % BASOPHILS (test code = 1013) 0.4 % IMMATURE GRANULOCYTES (test code = 1036) 0.2 % NUCLEATED RBCS (test code = 1065) 0.0 /100WBC'S PLATELET COUNT (test code = 1015) 322 K/UL ABSOLUTE NEUTROPHILS (test c ode = 1066) 2.63 K/UL ABSOLUTE LYMPHOCYTES (test c ode = 1067) 2.15 K/UL ABSOLUTE MONOCYTES (test cod e = 1068) 0.28 K/UL ABSOLUTE EOSINOPHILS (test c ode = 1040) 0.06 K/UL ABSOLUTE BASOPHILS (test cod e = 1069) 0.02 K/UL ABS IMMATURE GRANULOCYTES (t est code = 1020) 0.01 K/UL ABS NUCLEATED RBCS (test cod e = 48020) 0.00 K/UL Devang BrownHEMOGLOBIN [id number] 00:00:00* Test Item Value Reference Range Interpretation Comme nts HEMOGLOBIN A1c (test code = 86107) 5.4 % Devang Davis [id number] 00:00:00* Test Item Value Reference Range Interpretation Comme nts FERRITIN (test code = 2075) 54 NG/ML Devang Davis [id number] 00:00:00* Test Item Value Reference Range Interpretation Comme nts TRANSFERRIN (test code = 4936) 332 MG/DL Devang BrownVITAMIN B 12 AND FOLIC [id number] 00:00:00* Test Item Value Reference Range Interpretation Comme nts VITAMIN B-12 (test code = 2840) 556 PG/ML FOLIC ACID (test code = 2695) 15.5 UG/L Devang Davis KevinIRON BINDING CAPACITY AND IRON AND % [id number] 00:00:00* Test Item Value Reference Range Interpretation Comme nts IRON, SERUM (test code = 2222) 94 UG/DL UNSATURATED IBC (test code = 73402) 312 UG/DL CALC TOTAL IBC (test code = 7) 406 UG/DL CALC % IRON SAT (test code = 2078) 23 % Devang Davis KevinCOMPREHENSIVE METABOLIC [id number] 00:00:00* Test Item Value Reference Range Interpretation Comme nts GLUCOSE (test code = 7) 97 MG/DL BUN (test code = 8) 12 MG/DL CREATININE (test code = 2214) 0.77 MG/DL eGFR (2020 CKD-EPI) (test co de = 95271) 96 ML/MIN/1.73 CALC BUN/CREAT (test code = 2235) 16 RATIO SODIUM (test code = 2231) 142 MEQ/L POTASSIUM (test code = 2228) 3.4 MEQ/L CHLORIDE (test code = 2215) 99 MEQ/L CARBON DIOXIDE (test code = 2206) 27 MEQ/L CALCIUM (test code = 2209) 9.8 MG/DL PROTEIN, TOTAL (test code = 2229) 7.9 G/DL ALBUMIN (test code = 2201) 4.6 G/DL CALC GLOBULIN (test code = 2240) 3.3 G/DL CALC A/G RATIO (test code = 2234) 1.4 RATIO BILIRUBIN, TOTAL (test code = 2207) 0.4 MG/DL ALKALINE PHOSPHATASE (test code = 2204) 76 U/L AST (test code = 2218) 44 U/L ALT (test code = 2219) 38 U/L Devang BrownLIPID [id number] 00:00:00* Test Item Value Reference Range Interpretation Comme nts CHOLESTEROL (test code = 2210) 223 MG/DL TRIGLYCERIDES (test code = 2232) 135 MG/DL HDL CHOLESTEROL (test code = 2220) 49 MG/DL CALC LDL CHOL (test code = 2237) 148 MG/DL RISK RATIO LDL/HDL (test cod e = 2238) 3.02 RATIO Devang [id number] 00:00:00* Test Item Value Reference Range Interpretation Comme nts TRANSFERRIN (test code = 4936) 332 MG/DL Devang BrownCBC W/AUTO [id number] 00:00:00* Test Item Value Reference Range Interpretation Comme nts WBC (test code = 1001) 5.2 K/UL RBC (test code = 1002) 4.77 M/UL HEMOGLOBIN (test code = 1003) 14.3 G/DL HEMATOCRIT (test code = 1004) 41.8 % MCV (test code = 1005) 87.6 fL MCH (test code = 1006) 30.0 PG MCHC (test code = 1007) 34.2 G/DL RDW (test code = 1038) 12.1 % NEUTROPHILS (test code = 1008) 51.1 % LYMPHOCYTES (test code = 1010) 41.7 % MONOCYTES (test code = 1011) 5.4 % EOSINOPHILS (test code = 1012) 1.2 % BASOPHILS (test code = 1013) 0.4 % IMMATURE GRANULOCYTES (test code = 1036) 0.2 % NUCLEATED RBCS (test code = 1065) 0.0 /100WBC'S PLATELET COUNT (test code = 1015) 322 K/UL ABSOLUTE NEUTROPHILS (test c ode = 1066) 2.63 K/UL ABSOLUTE LYMPHOCYTES (test c ode = 1067) 2.15 K/UL ABSOLUTE MONOCYTES (test cod e = 1068) 0.28 K/UL ABSOLUTE EOSINOPHILS (test c ode = 1040) 0.06 K/UL ABSOLUTE BASOPHILS (test cod e = 1069) 0.02 K/UL ABS IMMATURE GRANULOCYTES (t est code = 1020) 0.01 K/UL ABS NUCLEATED RBCS (test cod e = 76296) 0.00 K/UL Devang BrownHEMOGLOBIN [id number] 00:00:00* Test Item Value Reference Range Interpretation Comme nts HEMOGLOBIN A1c (test code = 18745) 5.4 % Devang Davis [id number] 00:00:00* Test Item Value Reference Range Interpretation Comme nts FERRITIN (test code = 5) 54 NG/ML Devang Davis KevinVITAMIN B 12 AND FOLIC [id number] 00:00:00* Test Item Value Reference Range Interpretation Comme nts VITAMIN B-12 (test code = 2840) 556 PG/ML FOLIC ACID (test code = 2695) 15.5 UG/L Devang Davis KevinIRON BINDING CAPACITY AND IRON AND % [id number] 00:00:00* Test Item Value Reference Range Interpretation Comme nts IRON, SERUM (test code = 2) 94 UG/DL UNSATURATED IBC (test code = 55259) 312 UG/DL CALC TOTAL IBC (test code = 7) 406 UG/DL CALC % IRON SAT (test code = 9) 23 % Devang Davis KevinCOMPREHENSIVE METABOLIC [id number] 00:00:00* Test Item Value Reference Range Interpretation Comme nts GLUCOSE (test code = 2217) 97 MG/DL BUN (test code = 8) 12 MG/DL CREATININE (test code = 2214) 0.77 MG/DL eGFR (2020 CKD-EPI) (test co de = 22252) 96 ML/MIN/1.73 CALC BUN/CREAT (test code = 2235) 16 RATIO SODIUM (test code = 2231) 142 MEQ/L POTASSIUM (test code = 2228) 3.4 MEQ/L CHLORIDE (test code = 2215) 99 MEQ/L CARBON DIOXIDE (test code = 2206) 27 MEQ/L CALCIUM (test code = 2209) 9.8 MG/DL PROTEIN, TOTAL (test code = 2229) 7.9 G/DL ALBUMIN (test code = 2201) 4.6 G/DL CALC GLOBULIN (test code = 2240) 3.3 G/DL CALC A/G RATIO (test code = 2234) 1.4 RATIO BILIRUBIN, TOTAL (test code = 2207) 0.4 MG/DL ALKALINE PHOSPHATASE (test code = 2204) 76 U/L AST (test code = 2218) 44 U/L ALT (test code = 2219) 38 U/L Devang BrownLIPID [id number] 00:00:00* Test Item Value Reference Range Interpretation Comme nts CHOLESTEROL (test code = 2210) 223 MG/DL TRIGLYCERIDES (test code = 2232) 135 MG/DL HDL CHOLESTEROL (test code = 2220) 49 MG/DL CALC LDL CHOL (test code = 2237) 148 MG/DL RISK RATIO LDL/HDL (test cod e = 2238) 3.02 RATIO Devang Davis KevinCBC W/AUTO [id number] 00:00:00* Test Item Value Reference Range Interpretation Comme nts WBC (test code = 1001) 5.2 K/UL RBC (test code = 1002) 4.77 M/UL HEMOGLOBIN (test code = 1003) 14.3 G/DL HEMATOCRIT (test code = 1004) 41.8 % MCV (test code = 1005) 87.6 fL MCH (test code = 1006) 30.0 PG MCHC (test code = 1007) 34.2 G/DL RDW (test code = 1038) 12.1 % NEUTROPHILS (test code = 1008) 51.1 % LYMPHOCYTES (test code = 1010) 41.7 % MONOCYTES (test code = 1011) 5.4 % EOSINOPHILS (test code = 1012) 1.2 % BASOPHILS (test code = 1013) 0.4 % IMMATURE GRANULOCYTES (test code = 1036) 0.2 % NUCLEATED RBCS (test code = 1065) 0.0 /100WBC'S PLATELET COUNT (test code = 1015) 322 K/UL ABSOLUTE NEUTROPHILS (test c ode = 1066) 2.63 K/UL ABSOLUTE LYMPHOCYTES (test c ode = 1067) 2.15 K/UL ABSOLUTE MONOCYTES (test cod e = 1068) 0.28 K/UL ABSOLUTE EOSINOPHILS (test c ode = 1040) 0.06 K/UL ABSOLUTE BASOPHILS (test cod e = 1069) 0.02 K/UL ABS IMMATURE GRANULOCYTES (t est code = 1020) 0.01 K/UL ABS NUCLEATED RBCS (test cod e = 30014) 0.00 K/UL Devang Davis AustinHEMOGLOBIN [id number] 00:00:00* Test Item Value Reference Range Interpretation Comme nts HEMOGLOBIN A1c (test code = 39284) 5.4 % Devang Davis [id number] 00:00:00* Test Item Value Reference Range Interpretation Comme nts FERRITIN (test code = 2075) 54 NG/ML Devang Davis AustinHEMOGLOBIN [id number] 10:31:45* Test Item Value Reference Range Interpretation Comme nts HEMOGLOBIN A1c (test code = 67639) 5.3 % 4.2-5.6 HEMOGLOBIN [id number] 00:00:00* Test Item Value Reference Range Interpretation Comme nts HEMOGLOBIN A1c (test code = 56722) 5.3 % Devang F AustinHEMOGLOBIN [id number] 00:00:00* Test Item Value Reference Range Interpretation Comme nts HEMOGLOBIN A1c (test code = 88688) 5.3 % Devang F AustinHEMOGLOBIN [id number] 00:00:00* Test Item Value Reference Range Interpretation Comme nts HEMOGLOBIN A1c (test code = 01503) 5.3 % Devang F AustinHEMOGLOBIN [id number] 00:00:00* Test Item Value Reference Range Interpretation Comme nts HEMOGLOBIN A1c (test code = 95128) 5.3 % Devang F AustinHEMOGLOBIN [id number] 00:00:00* Test Item Value Reference Range Interpretation Comme nts HEMOGLOBIN A1c (test code = 32773) 5.3 % Devang F [facility] W/AUTO DIFF WITH [id number] 14:00:56* Test Item Value Reference Range Interpretation Comme nts WBC (test code = 1001) 5.0 K/UL 3.5-11.0 RBC (test code = 1002) 4.57 M/UL 3.80-5.40 HEMOGLOBIN (test code = 1003) 12.4 G/DL 11.5-15.5 HEMATOCRIT (test code = 1004) 39.7 % 34.0-45.0 MCV (test code = 1005) 86.9 fL 80.0-99.0 MCH (test code = 1006) 27.1 PG 25.0-33.0 MCHC (test code = 1007) 31.2 G/DL 31.0-36.0 RDW (test code = 1038) 18.6 % 11.5-15.0 H NEUTROPHILS (test code = 1008) 60.0 % LYMPHOCYTES (test code = 1010) 33.2 % MONOCYTES (test code = 1011) 5.2 % EOSINOPHILS (test code = 1012) 1.0 % BASOPHILS (test code = 1013) 0.4 % IMMATURE GRANULOCYTES (test code = 1036) 0.2 % NUCLEATED RBCS (test code = 1065) 0.0 /100 WBC'S See_Comment [Automated messa ge] The system which generated this result transmitted reference range: 0.0. The reference range was not used to interpret this result as normal/abnormal. PLATELET COUNT (test code = 1015) 270 K/UL 130-400 ABSOLUTE NEUTROPHILS (test code = 1066) 3.00 K/UL 1.50-7.50 ABSOLUTE LYMPHOCYTES (test code = 1067) 1.66 K/UL 1.00-4.00 ABSOLUTE MONOCYTES (test code = 1068) 0.26 K/UL 0.20-1.00 ABSOLUTE EOSINOPHILS (test code = 1040) 0.05 K/UL 0.00-0.50 ABSOLUTE BASOPHILS (test code = 1069) 0.02 K/UL 0.00-0.20 ABS IMMATURE GRANULOCYTES (test code = 1020) 0.01 K/UL 0.00-0.10 ABS NUCLEATED RBCS (test code = 79489) 0.00 K/UL 0.00-0.11 [id number] 06:52:43* Test Item Value Reference Range Interpretation Comme nts FERRITIN (test code = 2075) 38 NG/ML 13-200 VITAMIN B 12 AND FOLIC [id number] 06:52:43* Test Item Value Reference Range Interpretation Comme nts VITAMIN B-12 (test code = 2840) 401 PG/ML 200-950 FOLIC ACID (test code = 2695) >20.0 UG/L SEE BELOW INTERPRETI VE RANGES DEFICIENCY . . . . . . . . . . . . . . . UG/L <4.0 POSSIBLE DEFICIENCY. . . . . . . . . . . UG/L 4.0-5.9 SUFFICIENT . . . . . . . . . . . . . . . UG/L >=6.0 UNLESS OTHERWISE INDICATED, ALL TESTING PERFORMED ATCLINICAL PATHOLOGY [employer] [address] [place] [address] MAINTENANCE HELPER UTILITY ENGINEER: MAXI BENTON M.D. [place] NUMBER [id number] [facility] [place]. [id number] 04:43:10* Test Item Value Reference Range Interpretation Comme nts TRANSFERRIN (test code = 4936) 381 MG/DL 200-360 H COMPREHENSIVE METABOLIC [id number] 04:42:52* Test Item Value Reference Range Interpretation Comme nts GLUCOSE (test code = 2217) 96 MG/DL 70-99 BUN (test code = 2208) 12 MG/DL 6-20 CREATININE (test code = 2214) 0.73 MG/DL 0.60-1.30 eGFR (2020 CKD-EPI) (test code = 03605) 103 ML/MIN/1.73 >60 CALC BUN/CREAT (test code = 2235) 16 RATIO 6-28 SODIUM (test code = 2231) 140 MEQ/L 133-146 POTASSIUM (test code = 2228) 4.0 MEQ/L 3.5-5.4 CHLORIDE (test code = 2215) 103 MEQ/L 95-107 CARBON DIOXIDE (test code = 2206) 23 MEQ/L 19-31 CALCIUM (test code = 2209) 9.2 MG/DL 8.5-10.5 PROTEIN, TOTAL (test code = 222) 7.1 G/DL 6.1-8.3 ALBUMIN (test code = 2200) 4.2 G/DL 3.5-5.2 CALC GLOBULIN (test code = 0) 2.9 G/DL 1.9-3.7 CALC A/G RATIO (test code = 2233) 1.4 RATIO 1.0-2.6 BILIRUBIN, TOTAL (test code = 7) <0.2 MG/DL See_Comment [Automated me ssage] The system which generated this result transmitted reference range: <=1.2. The reference range was not used to interpret this result as normal/abnormal. ALKALINE PHOSPHATASE (test code = 2203) 69 U/L 40-116 AST (test code = 2217) 35 U/L 9-40 ALT (test code = 2218) 16 U/L 5-40 LIPID [id number] 04:42:52* Test Item Value Reference Range Interpretation Comme nts CHOLESTEROL (test code = 2209) 207 MG/DL <200 H TRIGLYCERIDES (test code = 2231) 197 MG/DL <150 H HDL CHOLESTEROL (test code = 2219) 48 MG/DL >39 CALC LDL CHOL (test code = 2236) 127 MG/DL <100 H NOTE: CALCULATED LDL IS BASED ON SACHIN-STEWARD METHOD WHICHINCLUDES ADJUSTABLE TRIGLYCERIDE:VLDL CHOLESTEROL RATIO.THIS FACTOR VARIES BY MEASURED TRIGLYCERIDE AND NON-HDLCHOLESTEROL CONCENTRATIONS WITH INCREASED CALCULATED LDL SEENIN HIGHER TRIGLYCERIDE OR LOWER NON-HDL SPECIMENS. FOR MOREINFORMATION, SEE CLIENT ANNOUNCEMENT AT [email or web address] RISK RATIO LDL/HDL (test code = 2237) 2.65 RATIO <3.22 IRON BINDING CAPACITY AND IRON AND % [id number] 04:42:52* Test Item Value Reference Range Interpretation Comme nts IRON, SERUM (test code = 2221) 43 UG/DL 37-145 UNSATURATED IBC (test code = ) 412 UG/DL 112-347 H CALC TOTAL IBC (test code = 2076) 455 UG/DL 250-450 H CALC % IRON SAT (test code = 2078) 9 % 20-50 L [id number] 00:00:00* Test Item Value Reference Range Interpretation Comme nts FERRITIN (test code = 2074) 38 NG/ML Devang F [id number] 00:00:00* Test Item Value Reference Range Interpretation Comme nts TRANSFERRIN (test code = 4936) 381 MG/DL Devang BrownVITAMIN B 12 AND FOLIC [id number] 00:00:00* Test Item Value Reference Range Interpretation Comme nts VITAMIN B-12 (test code = 2840) 401 PG/ML FOLIC ACID (test code = 2695) >20.0 UG/L Devang BrownCOMPREHENSIVE METABOLIC [id number] 00:00:00* Test Item Value Reference Range Interpretation Comme nts GLUCOSE (test code = 2217) 96 MG/DL BUN (test code = 2208) 12 MG/DL CREATININE (test code = 2214) 0.73 MG/DL eGFR (2020 CKD-EPI) (test code = 32292) 103 ML/MIN/1.73 CALC BUN/CREAT (test code = 2235) 16 RATIO SODIUM (test code = 2231) 140 MEQ/L POTASSIUM (test code = 2228) 4.0 MEQ/L CHLORIDE (test code = 2215) 103 MEQ/L CARBON DIOXIDE (test code = 2206) 23 MEQ/L CALCIUM (test code = 2209) 9.2 MG/DL PROTEIN, TOTAL (test code = 2229) 7.1 G/DL ALBUMIN (test code = 2201) 4.2 G/DL CALC GLOBULIN (test code = 2240) 2.9 G/DL CALC A/G RATIO (test code = 2234) 1.4 RATIO BILIRUBIN, TOTAL (test code = 2207) <0.2 MG/DL ALKALINE PHOSPHATASE (test code = 2204) 69 U/L AST (test code = 2218) 35 U/L ALT (test code = 2219) 16 U/L Devang BrownLIPID [id number] 00:00:00* Test Item Value Reference Range Interpretation Comme nts CHOLESTEROL (test code = 2210) 207 MG/DL TRIGLYCERIDES (test code = 2232) 197 MG/DL HDL CHOLESTEROL (test code = 2220) 48 MG/DL CALC LDL CHOL (test code = 2237) 127 MG/DL RISK RATIO LDL/HDL (test cod e = 2238) 2.65 RATIO Devang BrownCBC W/AUTO [id number] 00:00:00* Test Item Value Reference Range Interpretation Comme nts WBC (test code = 1001) 5.0 K/UL RBC (test code = 1002) 4.57 M/UL HEMOGLOBIN (test code = 1003) 12.4 G/DL HEMATOCRIT (test code = 1004) 39.7 % MCV (test code = 1005) 86.9 fL MCH (test code = 1006) 27.1 PG MCHC (test code = 1007) 31.2 G/DL RDW (test code = 1038) 18.6 % NEUTROPHILS (test code = 1008) 60.0 % LYMPHOCYTES (test code = 1010) 33.2 % MONOCYTES (test code = 1011) 5.2 % EOSINOPHILS (test code = 1012) 1.0 % BASOPHILS (test code = 1013) 0.4 % IMMATURE GRANULOCYTES (test code = 1036) 0.2 % NUCLEATED RBCS (test code = 1065) 0.0 /100WBC'S PLATELET COUNT (test code = 1015) 270 K/UL ABSOLUTE NEUTROPHILS (test c ode = 1066) 3.00 K/UL ABSOLUTE LYMPHOCYTES (test c ode = 1067) 1.66 K/UL ABSOLUTE MONOCYTES (test cod e = 1068) 0.26 K/UL ABSOLUTE EOSINOPHILS (test c ode = 1040) 0.05 K/UL ABSOLUTE BASOPHILS (test cod e = 1069) 0.02 K/UL ABS IMMATURE GRANULOCYTES (t est code = 1020) 0.01 K/UL ABS NUCLEATED RBCS (test cod e = 47977) 0.00 K/UL Devang BrownIRON BINDING CAPACITY AND IRON AND % [id number] 00:00:00* Test Item Value Reference Range Interpretation Comme nts IRON, SERUM (test code = 2222) 43 UG/DL UNSATURATED IBC (test code = 76688) 412 UG/DL CALC TOTAL IBC (test code = 7) 455 UG/DL CALC % IRON SAT (test code = 9) 9 % Devang [id number] 00:00:00* Test Item Value Reference Range Interpretation Comme nts FERRITIN (test code = 2075) 38 NG/ML Devang [id number] 00:00:00* Test Item Value Reference Range Interpretation Comme nts TRANSFERRIN (test code = 4936) 381 MG/DL Devang BrownVITAMIN B 12 AND FOLIC [id number] 00:00:00* Test Item Value Reference Range Interpretation Comme nts VITAMIN B-12 (test code = 2840) 401 PG/ML FOLIC ACID (test code = 2695) >20.0 UG/L Devang BrownCOMPREHENSIVE METABOLIC [id number] 00:00:00* Test Item Value Reference Range Interpretation Comme nts GLUCOSE (test code = 2217) 96 MG/DL BUN (test code = 2208) 12 MG/DL CREATININE (test code = 2214) 0.73 MG/DL eGFR (2020 CKD-EPI) (test code = 83922) 103 ML/MIN/1.73 CALC BUN/CREAT (test code = 2235) 16 RATIO SODIUM (test code = 2231) 140 MEQ/L POTASSIUM (test code = 2228) 4.0 MEQ/L CHLORIDE (test code = 2215) 103 MEQ/L CARBON DIOXIDE (test code = 2206) 23 MEQ/L CALCIUM (test code = 2209) 9.2 MG/DL PROTEIN, TOTAL (test code = 2229) 7.1 G/DL ALBUMIN (test code = 2201) 4.2 G/DL CALC GLOBULIN (test code = 2240) 2.9 G/DL CALC A/G RATIO (test code = 2234) 1.4 RATIO BILIRUBIN, TOTAL (test code = 2207) <0.2 MG/DL ALKALINE PHOSPHATASE (test code = 2204) 69 U/L AST (test code = 2218) 35 U/L ALT (test code = 2219) 16 U/L Devang BrownLIPID [id number] 00:00:00* Test Item Value Reference Range Interpretation Comme nts CHOLESTEROL (test code = 2210) 207 MG/DL TRIGLYCERIDES (test code = 2232) 197 MG/DL HDL CHOLESTEROL (test code = 2220) 48 MG/DL CALC LDL CHOL (test code = 2237) 127 MG/DL RISK RATIO LDL/HDL (test cod e = 2238) 2.65 RATIO Devang BrownCBC W/AUTO [id number] 00:00:00* Test Item Value Reference Range Interpretation Comme nts WBC (test code = 1001) 5.0 K/UL RBC (test code = 1002) 4.57 M/UL HEMOGLOBIN (test code = 1003) 12.4 G/DL HEMATOCRIT (test code = 1004) 39.7 % MCV (test code = 1005) 86.9 fL MCH (test code = 1006) 27.1 PG MCHC (test code = 1007) 31.2 G/DL RDW (test code = 1038) 18.6 % NEUTROPHILS (test code = 1008) 60.0 % LYMPHOCYTES (test code = 1010) 33.2 % MONOCYTES (test code = 1011) 5.2 % EOSINOPHILS (test code = 1012) 1.0 % BASOPHILS (test code = 1013) 0.4 % IMMATURE GRANULOCYTES (test code = 1036) 0.2 % NUCLEATED RBCS (test code = 1065) 0.0 /100WBC'S PLATELET COUNT (test code = 1015) 270 K/UL ABSOLUTE NEUTROPHILS (test c ode = 1066) 3.00 K/UL ABSOLUTE LYMPHOCYTES (test c ode = 1067) 1.66 K/UL ABSOLUTE MONOCYTES (test cod e = 1068) 0.26 K/UL ABSOLUTE EOSINOPHILS (test c ode = 1040) 0.05 K/UL ABSOLUTE BASOPHILS (test cod e = 1069) 0.02 K/UL ABS IMMATURE GRANULOCYTES (t est code = 1020) 0.01 K/UL ABS NUCLEATED RBCS (test cod e = 91837) 0.00 K/UL Devang BrownIRON BINDING CAPACITY AND IRON AND % [id number] 00:00:00* Test Item Value Reference Range Interpretation Comme nts IRON, SERUM (test code = 2222) 43 UG/DL UNSATURATED IBC (test code = 63526) 412 UG/DL CALC TOTAL IBC (test code = 2076) 455 UG/DL CALC % IRON SAT (test code = 2078) 9 % Devang F [id number] 00:00:00* Test Item Value Reference Range Interpretation Comme nts FERRITIN (test code = 2075) 38 NG/ML Devang F [id number] 00:00:00* Test Item Value Reference Range Interpretation Comme nts TRANSFERRIN (test code = 4936) 381 MG/DL Devang F AustinVITAMIN B 12 AND FOLIC [id number] 00:00:00* Test Item Value Reference Range Interpretation Comme nts VITAMIN B-12 (test code = 2840) 401 PG/ML FOLIC ACID (test code = 2695) >20.0 UG/L Devang BrownCOMPREHENSIVE METABOLIC [id number] 00:00:00* Test Item Value Reference Range Interpretation Comme nts GLUCOSE (test code = 2217) 96 MG/DL BUN (test code = 2208) 12 MG/DL CREATININE (test code = 2214) 0.73 MG/DL eGFR (2020 CKD-EPI) (test code = 66859) 103 ML/MIN/1.73 CALC BUN/CREAT (test code = 2235) 16 RATIO SODIUM (test code = 2231) 140 MEQ/L POTASSIUM (test code = 2228) 4.0 MEQ/L CHLORIDE (test code = 2215) 103 MEQ/L CARBON DIOXIDE (test code = 2206) 23 MEQ/L CALCIUM (test code = 2209) 9.2 MG/DL PROTEIN, TOTAL (test code = 2229) 7.1 G/DL ALBUMIN (test code = 2201) 4.2 G/DL CALC GLOBULIN (test code = 2240) 2.9 G/DL CALC A/G RATIO (test code = 2234) 1.4 RATIO BILIRUBIN, TOTAL (test code = 2207) <0.2 MG/DL ALKALINE PHOSPHATASE (test code = 2204) 69 U/L AST (test code = 2218) 35 U/L ALT (test code = 2219) 16 U/L Devang BrownLIPID [id number] 00:00:00* Test Item Value Reference Range Interpretation Comme nts CHOLESTEROL (test code = 2210) 207 MG/DL TRIGLYCERIDES (test code = 2232) 197 MG/DL HDL CHOLESTEROL (test code = 2220) 48 MG/DL CALC LDL CHOL (test code = 2237) 127 MG/DL RISK RATIO LDL/HDL (test cod e = 2238) 2.65 RATIO Devang Davis KevinCBC W/AUTO [id number] 00:00:00* Test Item Value Reference Range Interpretation Comme nts WBC (test code = 1001) 5.0 K/UL RBC (test code = 1002) 4.57 M/UL HEMOGLOBIN (test code = 1003) 12.4 G/DL HEMATOCRIT (test code = 1004) 39.7 % MCV (test code = 1005) 86.9 fL MCH (test code = 1006) 27.1 PG MCHC (test code = 1007) 31.2 G/DL RDW (test code = 1038) 18.6 % NEUTROPHILS (test code = 1008) 60.0 % LYMPHOCYTES (test code = 1010) 33.2 % MONOCYTES (test code = 1011) 5.2 % EOSINOPHILS (test code = 1012) 1.0 % BASOPHILS (test code = 1013) 0.4 % IMMATURE GRANULOCYTES (test code = 1036) 0.2 % NUCLEATED RBCS (test code = 1065) 0.0 /100WBC'S PLATELET COUNT (test code = 1015) 270 K/UL ABSOLUTE NEUTROPHILS (test c ode = 1066) 3.00 K/UL ABSOLUTE LYMPHOCYTES (test c ode = 1067) 1.66 K/UL ABSOLUTE MONOCYTES (test cod e = 1068) 0.26 K/UL ABSOLUTE EOSINOPHILS (test c ode = 1040) 0.05 K/UL ABSOLUTE BASOPHILS (test cod e = 1069) 0.02 K/UL ABS IMMATURE GRANULOCYTES (t est code = 1020) 0.01 K/UL ABS NUCLEATED RBCS (test cod e = 18997) 0.00 K/UL Devang F AustinIRON BINDING CAPACITY AND IRON AND % [id number] 00:00:00* Test Item Value Reference Range Interpretation Comme nts IRON, SERUM (test code = 2222) 43 UG/DL UNSATURATED IBC (test code = 86657) 412 UG/DL CALC TOTAL IBC (test code = 2077) 455 UG/DL CALC % IRON SAT (test code = 207) 9 % Devang F [id number] 00:00:00* Test Item Value Reference Range Interpretation Comme nts FERRITIN (test code = 2075) 38 NG/ML Devang F [id number] 00:00:00* Test Item Value Reference Range Interpretation Comme nts TRANSFERRIN (test code = 4936) 381 MG/DL Devang F AustinVITAMIN B 12 AND FOLIC [id number] 00:00:00* Test Item Value Reference Range Interpretation Comme nts VITAMIN B-12 (test code = 9820) 401 PG/ML FOLIC ACID (test code = 7715) >20.0 UG/L Devang F AustinIRON BINDING CAPACITY AND IRON AND % [id number] 00:00:00* Test Item Value Reference Range Interpretation Comme nts IRON, SERUM (test code = 2221) 43 UG/DL UNSATURATED IBC (test code = ) 412 UG/DL CALC TOTAL IBC (test code = 2076) 455 UG/DL CALC % IRON SAT (test code = 2078) 9 % Devang BrownCOMPREHENSIVE METABOLIC [id number] 00:00:00* Test Item Value Reference Range Interpretation Comme nts GLUCOSE (test code = 2217) 96 MG/DL BUN (test code = 2208) 12 MG/DL CREATININE (test code = 2214) 0.73 MG/DL eGFR (2020 CKD-EPI) (test code = ) 103 ML/MIN/1.73 CALC BUN/CREAT (test code = 2235) 16 RATIO SODIUM (test code = 2231) 140 MEQ/L POTASSIUM (test code = 2228) 4.0 MEQ/L CHLORIDE (test code = 2215) 103 MEQ/L CARBON DIOXIDE (test code = 2206) 23 MEQ/L CALCIUM (test code = 2209) 9.2 MG/DL PROTEIN, TOTAL (test code = 2229) 7.1 G/DL ALBUMIN (test code = 2201) 4.2 G/DL CALC GLOBULIN (test code = 2240) 2.9 G/DL CALC A/G RATIO (test code = 2234) 1.4 RATIO BILIRUBIN, TOTAL (test code = 2207) <0.2 MG/DL ALKALINE PHOSPHATASE (test code = 2204) 69 U/L AST (test code = 2218) 35 U/L ALT (test code = 2219) 16 U/L Devang Davis AustinLIPID [id number] 00:00:00* Test Item Value Reference Range Interpretation Comme nts CHOLESTEROL (test code = 2210) 207 MG/DL TRIGLYCERIDES (test code = 2232) 197 MG/DL HDL CHOLESTEROL (test code = 2220) 48 MG/DL CALC LDL CHOL (test code = 2237) 127 MG/DL RISK RATIO LDL/HDL (test cod e = 2238) 2.65 RATIO Devang [id number] 00:00:00* Test Item Value Reference Range Interpretation Comme nts FERRITIN (test code = 2074) 38 NG/ML Devang BrownCBC W/AUTO [id number] 00:00:00* Test Item Value Reference Range Interpretation Comme nts WBC (test code = 1001) 5.0 K/UL RBC (test code = 1002) 4.57 M/UL HEMOGLOBIN (test code = 1003) 12.4 G/DL HEMATOCRIT (test code = 1004) 39.7 % MCV (test code = 1005) 86.9 fL MCH (test code = 1006) 27.1 PG MCHC (test code = 1007) 31.2 G/DL RDW (test code = 1038) 18.6 % NEUTROPHILS (test code = 1008) 60.0 % LYMPHOCYTES (test code = 1010) 33.2 % MONOCYTES (test code = 1011) 5.2 % EOSINOPHILS (test code = 1012) 1.0 % BASOPHILS (test code = 1013) 0.4 % IMMATURE GRANULOCYTES (test code = 1036) 0.2 % NUCLEATED RBCS (test code = 1065) 0.0 /100WBC'S PLATELET COUNT (test code = 1015) 270 K/UL ABSOLUTE NEUTROPHILS (test c ode = 1066) 3.00 K/UL ABSOLUTE LYMPHOCYTES (test c ode = 1067) 1.66 K/UL ABSOLUTE MONOCYTES (test cod e = 1068) 0.26 K/UL ABSOLUTE EOSINOPHILS (test c ode = 1040) 0.05 K/UL ABSOLUTE BASOPHILS (test cod e = 1069) 0.02 K/UL ABS IMMATURE GRANULOCYTES (t est code = 1020) 0.01 K/UL ABS NUCLEATED RBCS (test cod e = 88721) 0.00 K/UL Devang [id number] 00:00:00* Test Item Value Reference Range Interpretation Comme nts TRANSFERRIN (test code = 4936) 381 MG/DL Devang BrownVITAMIN B 12 AND FOLIC [id number] 00:00:00* Test Item Value Reference Range Interpretation Comme nts VITAMIN B-12 (test code = 2840) 401 PG/ML FOLIC ACID (test code = 2695) >20.0 UG/L Devang BrownCOMPREHENSIVE METABOLIC [id number] 00:00:00* Test Item Value Reference Range Interpretation Comme nts GLUCOSE (test code = 2217) 96 MG/DL BUN (test code = 2208) 12 MG/DL CREATININE (test code = 2214) 0.73 MG/DL eGFR (2020 CKD-EPI) (test code = 90356) 103 ML/MIN/1.73 CALC BUN/CREAT (test code = 2235) 16 RATIO SODIUM (test code = 2231) 140 MEQ/L POTASSIUM (test code = 2228) 4.0 MEQ/L CHLORIDE (test code = 2215) 103 MEQ/L CARBON DIOXIDE (test code = 2206) 23 MEQ/L CALCIUM (test code = 2209) 9.2 MG/DL PROTEIN, TOTAL (test code = 2229) 7.1 G/DL ALBUMIN (test code = 2201) 4.2 G/DL CALC GLOBULIN (test code = 2240) 2.9 G/DL CALC A/G RATIO (test code = 2234) 1.4 RATIO BILIRUBIN, TOTAL (test code = 2207) <0.2 MG/DL ALKALINE PHOSPHATASE (test code = 2204) 69 U/L AST (test code = 2218) 35 U/L ALT (test code = 2219) 16 U/L Devang BrownLIPID [id number] 00:00:00* Test Item Value Reference Range Interpretation Comme nts CHOLESTEROL (test code = 2210) 207 MG/DL TRIGLYCERIDES (test code = 2232) 197 MG/DL HDL CHOLESTEROL (test code = 2220) 48 MG/DL CALC LDL CHOL (test code = 2237) 127 MG/DL RISK RATIO LDL/HDL (test cod e = 2238) 2.65 RATIO Devang BrownCBC W/AUTO [id number] 00:00:00* Test Item Value Reference Range Interpretation Comme nts WBC (test code = 1001) 5.0 K/UL RBC (test code = 1002) 4.57 M/UL HEMOGLOBIN (test code = 1003) 12.4 G/DL HEMATOCRIT (test code = 1004) 39.7 % MCV (test code = 1005) 86.9 fL MCH (test code = 1006) 27.1 PG MCHC (test code = 1007) 31.2 G/DL RDW (test code = 1038) 18.6 % NEUTROPHILS (test code = 1008) 60.0 % LYMPHOCYTES (test code = 1010) 33.2 % MONOCYTES (test code = 1011) 5.2 % EOSINOPHILS (test code = 1012) 1.0 % BASOPHILS (test code = 1013) 0.4 % IMMATURE GRANULOCYTES (test code = 1036) 0.2 % NUCLEATED RBCS (test code = 1065) 0.0 /100WBC'S PLATELET COUNT (test code = 1015) 270 K/UL ABSOLUTE NEUTROPHILS (test c ode = 1066) 3.00 K/UL ABSOLUTE LYMPHOCYTES (test c ode = 1067) 1.66 K/UL ABSOLUTE MONOCYTES (test cod e = 1068) 0.26 K/UL ABSOLUTE EOSINOPHILS (test c ode = 1040) 0.05 K/UL ABSOLUTE BASOPHILS (test cod e = 1069) 0.02 K/UL ABS IMMATURE GRANULOCYTES (t est code = 1020) 0.01 K/UL ABS NUCLEATED RBCS (test cod e = 46279) 0.00 K/UL Devang BrownIRON BINDING CAPACITY AND IRON AND % [id number] 00:00:00* Test Item Value Reference Range Interpretation Comme nts IRON, SERUM (test code = 2222) 43 UG/DL UNSATURATED IBC (test code = 93562) 412 UG/DL CALC TOTAL IBC (test code = 2077) 455 UG/DL CALC % IRON SAT (test code = 2079) 9 % Devang BrownPAP TEST, THINPREP, [id number] 13:12:17* Test Item Value Reference Range Interpretation Comme nts SOURCE: (test code = 8001) Cervical/Vagin al SLIDES: (test code = 8011) 1 LMP: (test code = 8021) 04/2022 SPECIMEN ADEQUACY: (test code = 24130) (NOTE) Satisfactory for evaluation. Endocervical cells/transformation zone component present. INTERPRETATION: (test code = 33255) NILM/NO EPITH. ABNORMALITY;SE E BELOW ---- NEGATIVE FOR INTRAEPITHELIAL LESION OR MALIGNANCY (NILM) - PODIATRIC SURGEON : (test code = 8101) LIZZETTE Daniels (ASCP) LOCATION: (test code = 03610) (NOTE) Specimens proces sed and interpreted at [facility], [address] [place] [address], , CLIA: [id number] CPT: (test code = 8140) (NOTE) 90468 UNLESS OTH ERWISE INDICATED, COMPUTER AIDED AND PODIATRIC SURGEON SCREENING PERFORMED. The Pap test is a screening test with an inherent, but low probability of error. Your patient should be reminded to consult you immediately if she experiences any suspicious signs or symptoms, regardless of her Pap test result. An alternate report format containing images or consolidated prior Pap history is available as applicable. HPV HIGH RISK WITH GENOTYPE, [id number] 13:01:05* Test Item Value Reference Range Interpretation Comme nts HPV HIGH RISK INTERP (test code = 56362) NEGATIVE NEGATIVE HPV 16 (test code = 05901) NEGATIVE HPV 18 (test code = 67036) NEGATIVE HPV, HR, OTHER GENOTYPES (test code = 50651) NEGATIVE Testing methodol ogy is real-time PCR utilizing hydrolysis probes with the Gianna Blanca 4800 system. The test individually detects genotypes 16 and 18, as well as the other 12 high risk types (31,33,35,39,45,51,52,56 ,58,59,66,68). The expected result is negative. A negative result does not rule out the presence of HPV not included in the genotype set, a low level of infection or specimen sampling error. UNLESS OTHERWISE INDICATED, ALL TESTING PERFORMED [facility] [employer], [facility]. [address] [place] [address] MAINTENANCE HELPER UTILITY ENGINEER: MAXI BENTON M.D. CLIA NUMBER [id number] [facility] [place]. [id number] SURGICAL PATHOLOGY [id number] 10:54:26* Test Item Value Reference Range Interpretation Comme nts DIAGNOSIS: (test code = 8200) (NOTE) A) Biopsy - EndometriumBenign inactive endometrium with stromal breakdown.Focal features suggestive of benign endometrial polyp. MICROSCOPIC DESCRIPTION: (test code = 8210) (NOTE) A) The endometri um shows tubular glands lined by cells lackingsignificant mitotic activity, surrounded by stroma showing focalcollapse. No hyperplasia, atypia, or malignancy is identified. There is a focal fragment with a gland to stroma ratio less than1. The glands in this fragment of varying sizes and shapes andsurrounded by compact stroma. Also present are thick walledblood vessels. CLINICAL DATA: (test code = 8401) (NOTE) Not specified. GROSS DESCRIPTION: (test code = 8220) (NOTE) A) SPECIMEN L ABELED: EndometriumSIZE/WEIGHT: 2.9x1.9x0.4 cm AggregateSPECIMEN COLOR: Tai-brownNUMBER OF TISSUE PIECES: MultipleSUBMITTED IN CASSETTE(S): [id number]: FormalinCOMMENTS:Cylindrica l tissue fragments with mucus and clotted blood. Filtered and entirely submitted. PATHOLOGIST: (test code = 8250) (NOTE) David Valdez MD Specimens processed at [facility], [address] [place] [address], , CLIA: [id number] interpreted at [facility], [address] [place] [address], Pathology Department [address] [place] [address], , CLIA: [id number] CPT: (test code = 8400) (NOTE) 66533 UNLESS OTH ERWISE INDICATED, ALL TESTING PERFORMED [facility], [place] [address] MAINTENANCE HELPER UTILITY ENGINEER: MAXI BENTON M.D. CLIA NUMBER [id number] [facility] [place]. [id number] PAP TEST, THINPREP, [id number] 00:00:00* Test Item Value Reference Range Interpretation Comme nts SOURCE: (test code = 8001) Cervical/Vaginal SLIDES: (test code = 8011) 1 LMP: (test code = 8021) 04/2022 SPECIMEN ADEQUACY: (test code = 74455) (NOTE) INTERPRETATION: (test code = 20395) NILM/NO EPITH. ABNORMALITY;SEE BELOW PODIATRIC SURGEON: (test code = 8101) LIZZETTE Daniels (ASCP) LOCATION: (test code = 98358) (NOTE) CPT: (test code = 8140) (NOTE) Devang Davis AustinSURGICAL PATHOLOGY [id number] 00:00:00* Test Item Value Reference Range Interpretation Comme nts DIAGNOSIS: (test code = 8200) (NOTE) MICROSCOPIC DESCRIPTION: (te st code = 8210) (NOTE) CLINICAL DATA: (test code = 8401) (NOTE) GROSS DESCRIPTION: (test code = 8220) (NOTE) PATHOLOGIST: (test code = 8250) (NOTE) CPT: (test code = 8400) (NOTE) Devang Davis AustinHPV HIGH RISK WITH GENOTYPE, [id number] 00:00:00* Test Item Value Reference Range Interpretation Comme nts HPV HIGH RISK INTERP (test c ode = 49750) NEGATIVE HPV 16 (test code = 00757) NEGATIVE HPV 18 (test code = 97657) NEGATIVE HPV, HR, OTHER GENOTYPES (te st code = 21626) NEGATIVE Devang BrwonPAP TEST, THINPREP, [id number] 00:00:00* Test Item Value Reference Range Interpretation Comme nts SOURCE: (test code = 8001) Cervical/Vaginal SLIDES: (test code = 8011) 1 LMP: (test code = 8021) 04/2022 SPECIMEN ADEQUACY: (test code = 28969) (NOTE) INTERPRETATION: (test code = 65763) NILM/NO EPITH. ABNORMALITY;SEE BELOW PODIATRIC SURGEON: (test code = 8101) LIZZETTE Daniels (ASCP) LOCATION: (test code = 87701) (NOTE) CPT: (test code = 8140) (NOTE) Devang Davis AustinSURGICAL PATHOLOGY [id number] 00:00:00* Test Item Value Reference Range Interpretation Comme nts DIAGNOSIS: (test code = 8200) (NOTE) MICROSCOPIC DESCRIPTION: (te st code = 8210) (NOTE) CLINICAL DATA: (test code = 8401) (NOTE) GROSS DESCRIPTION: (test code = 8220) (NOTE) PATHOLOGIST: (test code = 8250) (NOTE) CPT: (test code = 8400) (NOTE) Devang Davis AustinHPV HIGH RISK WITH GENOTYPE, [id number] 00:00:00* Test Item Value Reference Range Interpretation Comme nts HPV HIGH RISK INTERP (test c ode = 40789) NEGATIVE HPV 16 (test code = 41493) NEGATIVE HPV 18 (test code = 64102) NEGATIVE HPV, HR, OTHER GENOTYPES (te st code = 60702) NEGATIVE Devang BrownPAP TEST, THINPREP, [id number] 00:00:00* Test Item Value Reference Range Interpretation Comme nts SOURCE: (test code = 8001) Cervical/Vaginal SLIDES: (test code = 8011) 1 LMP: (test code = 8021) 04/2022 SPECIMEN ADEQUACY: (test code = 07790) (NOTE) INTERPRETATION: (test code = 12728) NILM/NO EPITH. ABNORMALITY;SEE BELOW PODIATRIC SURGEON: (test code = 8101) LIZZETTE Daniels (ASCP) LOCATION: (test code = 03682) (NOTE) CPT: (test code = 8140) (NOTE) Devang Davis AustinSURGICAL PATHOLOGY [id number] 00:00:00* Test Item Value Reference Range Interpretation Comme nts DIAGNOSIS: (test code = 8200) (NOTE) MICROSCOPIC DESCRIPTION: (te st code = 8210) (NOTE) CLINICAL DATA: (test code = 8401) (NOTE) GROSS DESCRIPTION: (test code = 8220) (NOTE) PATHOLOGIST: (test code = 8250) (NOTE) CPT: (test code = 8400) (NOTE) Devang Davis AustinHPV HIGH RISK WITH GENOTYPE, [id number] 00:00:00* Test Item Value Reference Range Interpretation Comme nts HPV HIGH RISK INTERP (test c ode = 17709) NEGATIVE HPV 16 (test code = 01312) NEGATIVE HPV 18 (test code = 76229) NEGATIVE HPV, HR, OTHER GENOTYPES (te st code = 67362) NEGATIVE Devang BrownPAP TEST, THINPREP, [id number] 00:00:00* Test Item Value Reference Range Interpretation Comme nts SOURCE: (test code = 8001) Cervical/Vaginal SLIDES: (test code = 8011) 1 LMP: (test code = 8021) 04/2022 SPECIMEN ADEQUACY: (test code = 44252) (NOTE) INTERPRETATION: (test code = 49155) NILM/NO EPITH. ABNORMALITY;SEE BELOW PODIATRIC SURGEON: (test code = 8101) LIZZETTE Daniels (ASCP) LOCATION: (test code = 13138) (NOTE) CPT: (test code = 8140) (NOTE) Devang Davis AustinSURGICAL PATHOLOGY [id number] 00:00:00* Test Item Value Reference Range Interpretation Comme nts DIAGNOSIS: (test code = 8200) (NOTE) MICROSCOPIC DESCRIPTION: (te st code = 8210) (NOTE) CLINICAL DATA: (test code = 8401) (NOTE) GROSS DESCRIPTION: (test code = 8220) (NOTE) PATHOLOGIST: (test code = 8250) (NOTE) CPT: (test code = 8400) (NOTE) Devang BrownHPV HIGH RISK WITH GENOTYPE, [id number] 00:00:00* Test Item Value Reference Range Interpretation Comme nts HPV HIGH RISK INTERP (test c ode = 82647) NEGATIVE HPV 16 (test code = 55121) NEGATIVE HPV 18 (test code = 12581) NEGATIVE HPV, HR, OTHER GENOTYPES (te st code = 95080) NEGATIVE Devang Davis AustinSURGICAL PATHOLOGY [id number] 00:00:00* Test Item Value Reference Range Interpretation Comme nts DIAGNOSIS: (test code = 8200) (NOTE) MICROSCOPIC DESCRIPTION: (te st code = 8210) (NOTE) CLINICAL DATA: (test code = 8401) (NOTE) GROSS DESCRIPTION: (test code = 8220) (NOTE) PATHOLOGIST: (test code = 8250) (NOTE) CPT: (test code = 8400) (NOTE) Devang BrownPAP TEST, THINPREP, [id number] 00:00:00* Test Item Value Reference Range Interpretation Comme nts SOURCE: (test code = 8001) Cervical/Vaginal SLIDES: (test code = 8011) 1 LMP: (test code = 8021) 04/2022 SPECIMEN ADEQUACY: (test code = 61961) (NOTE) INTERPRETATION: (test code = 35083) NILM/NO EPITH. ABNORMALITY;SEE BELOW PODIATRIC SURGEON: (test code = 8101) LIZZETTE Daniels (ASCP) LOCATION: (test code = 94944) (NOTE) CPT: (test code = 8140) (NOTE) Devang BrownHPV HIGH RISK WITH GENOTYPE, [id number] 00:00:00* Test Item Value Reference Range Interpretation Comme nts HPV HIGH RISK INTERP (test c ode = 02930) NEGATIVE HPV 16 (test code = 27278) NEGATIVE HPV 18 (test code = 15348) NEGATIVE HPV, HR, OTHER GENOTYPES (te st code = 75085) NEGATIVE Devang BrownVITAMIN C (ASCORBIC)2022-05-31 16:58:15* Test Item Value Reference Range Interpretation Comme nts VITAMIN C (ASCORBIC) (test code = 5020) 61 umol/L 23-114 INTERPRETIVE ARIELA A: Vitamin C (Ascorbic Acid), PlasmaVitamin C concentrations lower than 11 umol/L indicate deficiency. Concentrations between 11 and 23 umol/L are consistent with a moderate risk of deficiency due to inadequate tissue stores. Vitamin C concentration is reported as micromoles per liter (umol/L). To convert concentration to milligrams per deciliter (mg/dL), multiply the result by 0.0176.This test was developed and its performance characteristics determined by [employer]. It has not been cleared or approved by the [place] Food and Drug Administration. This test was performed in a CLIA certified laboratory and is intended for clinical purposes. TESTING PERFORMED AT [facility], [place] [id number] [place]. [id number] CLIA NO. [id number] UNLESS OTHERWISE INDICATED, ALL TESTING PERFORMED [facility] [address] [place] [address] MAINTENANCE HELPER UTILITY ENGINEER: MAXI BENTON M.D. CLIA NUMBER [id number] [place]. [id number] VITAMIN C (ASCORBIC)2022-05-31 00:00:00* Test Item Value Reference Range Interpretation Comme nts VITAMIN C (ASCORBIC) (test c ode = 5020) 61 umol/L Devang BrownVITAMIN C (ASCORBIC)2022-05-31 00:00:00* Test Item Value Reference Range Interpretation Comme nts VITAMIN C (ASCORBIC) (test c ode = 5020) 61 umol/L Devang BrownVITAMIN C (ASCORBIC)2022-05-31 00:00:00* Test Item Value Reference Range Interpretation Comme nts VITAMIN C (ASCORBIC) (test c ode = 5020) 61 umol/L Devang BrownVITAMIN C (ASCORBIC)2022-05-31 00:00:00* Test Item Value Reference Range Interpretation Comme nts VITAMIN C (ASCORBIC) (test c ode = 5020) 61 umol/L Devang BrownVITAMIN C (ASCORBIC)2022-05-31 00:00:00* Test Item Value Reference Range Interpretation Comme nts VITAMIN C (ASCORBIC) (test c ode = 5020) 61 umol/L Devang BrownCBC WITH [id number] 00:12:33* Test Item Value Reference Range Interpretation Comme nts WBC (test code = 6690-2) See_Comment [Automated messa ge] The system which generated this result transmitted reference range: 4.30 - 11.10 10*3/?L. The reference range was not used to interpret this result as normal/abnormal. RBC (test code = 789-8) See_Comment L [Automated messa ge] The system which generated this result transmitted reference range: 3.93 - 5.25 10*6/?L. The reference range was not used to interpret this result as normal/abnormal. HGB (test code = 718-7) 7.4 g/dL 11.6-15 L HCT (test code = 4544-3) 25.9 % 35.7-45.2 L MCV (test code = 787-2) 67.4 fL 80.6-95.5 L MCH (test code = 785-6) 19.3 pg 25.9-32.8 L MCHC (test code = 786-4) 28.6 g/dL 31.6-35.1 L RDW-SD (test code = 39248-7) 46.3 fL 39-49.9 RDW-CV (test code = 788-0) 19.6 % 12-15.5 H PLT (test code = 777-3) See_Comment H [Automated messa ge] The system which generated this result transmitted reference range: 166 - 358 10*3/?L. The reference range was not used to interpret this result as normal/abnormal. MPV (test code = 02874-6) 10.0 fL 9.5-12.9 NRBC/100 WBC (test code = 9641335779) See_Comment [Automated me ssage] The system which generated this result transmitted reference range: 0.0 - 10.0 /100 WBCs. The reference range was not used to interpret this result as normal/abnormal. NRBC x10^3 (test code = 6864679186) See_Comment [Automated messa ge] The system which generated this result transmitted reference range: 10*3/?L. The reference range was not used to interpret this result as normal/abnormal. GRAN MAT (NEUT) % (test code = 770-8) 54.6 % IMM GRAN % (test code = 0586138217) 0.70 % LYMPH % (test code = 736-9) 36.3 % MONO % (test code = 5905-5) 6.4 % EOS % (test code = 713-8) 1.8 % BASO % (test code = 706-2) 0.2 % GRAN MAT x10^3(ANC) (test code = 7818677428) 3.07 10*3/uL 1.88-7.09 IMM GRAN x10^3 (test code = 9809792248) 0.04 10*3/uL 0-0.06 LYMPH x10^3 (test code = 731-0) 2.04 10*3/uL 1.32-3.29 MONO x10^3 (test code = 742-7) 0.36 10*3/uL 0.33-0.92 EOS x10^3 (test code = 711-2) 0.10 10*3/uL 0.03-0.39 BASO x10^3 (test code = 704-7) 0.01-0.07 Lab Interpretation (test code = 35658-2) Abnormal [facility] W/AUTO DIFF WITH [id number] 14:21:55* Test Item Value Reference Range Interpretation Comme nts WBC (test code = 1001) 3.2 K/UL 3.5-11.0 L RBC (test code = 1002) 3.85 M/UL 3.80-5.40 HEMOGLOBIN (test code = 1003) 7.3 G/DL 11.5-15.5 L HEMATOCRIT (test code = 1004) 26.8 % 34.0-45.0 L MCV (test code = 1005) 69.6 fL 80.0-99.0 L MCH (test code = 1006) 19.0 PG 25.0-33.0 L MCHC (test code = 1007) 27.2 G/DL 31.0-36.0 L RDW (test code = 1038) 19.2 % 11.5-15.0 H NEUTROPHILS (test code = 1008) 46.5 % AUTOMATED DIFFERENTIAL CONFIRMED WITH MANUAL SLIDE REVIEW. LYMPHOCYTES (test code = 1010) 44.3 % MONOCYTES (test code = 1011) 7.0 % EOSINOPHILS (test code = 1012) 1.9 % BASOPHILS (test code = 1013) 0.3 % IMMATURE GRANULOCYTES (test code = 1036) 0.0 % NUCLEATED RBCS (test code = 1065) 0.0 /100 WBC'S See_Comment [Automated message] The system which generated this result transmitted reference range: 0.0. The reference range was not used to interpret this result as normal/abnormal. PLATELET COUNT (test code = 1015) 429 K/UL 130-400 H ABSOLUTE NEUTROPHILS (test code = 1066) 1.47 K/UL 1.50-7.50 L ABSOLUTE LYMPHOCYTES (test code = 1067) 1.40 K/UL 1.00-4.00 ABSOLUTE MONOCYTES (test code = 1068) 0.22 K/UL 0.20-1.00 ABSOLUTE EOSINOPHILS (test code = 1040) 0.06 K/UL 0.00-0.50 ABSOLUTE BASOPHILS (test code = 1069) 0.01 K/UL 0.00-0.20 ABS IMMATURE GRANULOCYTES (test code = 1020) 0.00 K/UL 0.00-0.10 ABS NUCLEATED RBCS (test code = 40852) 0.00 K/UL 0.00-0.11 COMMENTS (test code = 1016) (NOTE) MODERATE ANISOCY TOSIS FEW ELLIPTOCYTES MARKED HYPOCHROMASIA MODERATE MICROCYTOSIS SLIGHT POIKILOCYTOSIS SLIGHT POLYCHROMASIA FEW TEAR DROP CELLS PLATELETS APPEAR INCREASED RETICULOCYTE WITH [id number] 14:21:55* Test Item Value Reference Range Interpretation Comme nts RETICULOCYTE COUNT (test cod e = 1018) 2.80 % 0.80-2.40 H ABSOLUTE RETICULOCYTE (test code = 31046) 107.8 K/UL 32.0-105.0 H [id number] 06:45:29* Test Item Value Reference Range Interpretation Comme nts FERRITIN (test code = 2075) 17 NG/ML 13-200 [id number] 05:03:06* Test Item Value Reference Range Interpretation Comme nts TRANSFERRIN (test code = 4936) 349 MG/DL 200-360 UNLESS OTHERWISE INDICATED, ALL TESTING [facility]FORMED [facility] [address] [place] [address] MAINTENANCE HELPER UTILITY ENGINEER: MAXI BENTON M.D. CLIA NUMBER [id number] [place]. [id number] IRON BINDING CAPACITY AND IRON AND % [id number] 04:59:59* Test Item Value Reference Range Interpretation Comme nts IRON, SERUM (test code = 2222) 19 UG/DL 37-145 L UNSATURATED IBC (test code = 34873) 404 UG/DL 112-347 H CALC TOTAL IBC (test code = 2077) 423 UG/DL 250-450 CALC % IRON SAT (test code = 2079) 4 % 20-50 L [id number] 06:21:58* Test Item Value Reference Range Interpretation Comme nts TESTOSTERONE (test code = 2830) 38 NG/DL See_Comment NOTE: TOTAL TESTOSTERONE ASSAY SENSITIVITY IS 12 NG/DL. TO DETERMINE NORMAL VS. SUBNORMAL TESTOSTERONE IN CHILDREN AND WOMEN, CONSIDER TESTING WITH ULTRASENSITIVE TESTOSTERONE. UNLESS OTHERWISE INDICATED, ALL TESTING PERFORMED [facility] [address] [place] [address] MAINTENANCE HELPER UTILITY ENGINEER: MAXI BENTON M.D. CLIA NUMBER [id number] [place]. [id number] [Automated message] The system which generated this result transmitted reference range: <=55. The reference range was not used to interpret this result as normal/abnormal. TSH, THIRD [id number] 04:53:45* Test Item Value Reference Range Interpretation Comme [facility] TSH, THIRD GENERATION (test code = 2821) 1.940 UIU/ML 0.400-4.100 FSH + LH [id number] 04:53:45* Test Item Value Reference Range Interpretation Comme [facility] FOLLICLE STIM HORMONE (test code = 2700) 16.6 IU/L SEE BELOW EXPEC JARAD VALUES FOR FSH FOR FEMALES >17 YEARS MALES FEMALES >=18 YEARS 1.5-12.4 IU/L FOLLICULAR 3.5-12.5 IU/L MID-CYCLE PEAK 4.7-21.5 IU/L LUTEAL PHASE 1.7-7.7 IU/L POSTMENOPAUSAL 25.8-134.8 IU/L LUTEINIZING HORMONE (test code = 2776) 8.7 IU/L SEE BELOW EXPEC JARAD VALUES FOR LH FOR FEMALES >17 YEARS MALES FEMALES >=18 YEARS 1.8-8.6 IU/L FOLLICULAR 2.4-12.6 IU/L MID-CYCLE PEAK 14.0-95.6 IU/L LUTEAL PHASE 1.0-11.4 IU/L POSTMENOPAUSAL 7.7-58.5 IU/L [id number] 04:53:45* Test Item Value Reference Range Interpretation Comme nts ESTRADIOL (test code = 2505) 36.6 PG/ML SEE BELOW EXPECTED VALUES FOR ESTRADIOL FOR FEMALES >=18 YEARS FOLLICULAR . . . . . . . . . . . . . PG/ML 12.4-233.0 OVULATION. . . . . . . . . . . . . . PG/ML 41.0-398.0 LUTEAL PHASE . . . . . . . . . . . . PG/ML 22.3-341.0 POSTMENOPAUSAL SUPPLEMENTED/NON-SUPP . PG/ML <138.0/<20.0 NOTE: TO DETERMINE NORMAL VS. SUBNORMAL ESTRADIOL IN POSTMENOPAUSAL FEMALES, CONSIDER ULTRASENSITIVE ESTRADIOL ([facility] ORDER CODE 5678). METHODOLOGY IS [employer] ELECTROCHEMILUMINESCENT IMMUNOASSAY WITH A LIMIT OF DETECTION OF 17 PG/ML. [id number] 04:53:45* Test Item Value Reference Range Interpretation Comme nts PROGESTERONE (test code = 2790) 0.23 NG/ML SEE BELOW EXPECTED VALUES FOR PROGESTERONE MALE . . . . . . . . . . . . . . . . NG/ML <0.20 FEMALE FOLLICULAR PHASE . . . . . . . . . NG/ML <0.90 OVULATION . . . . . . . . . . . . NG/ML <12.00 LUTEAL PHASE . . . . . . . . . . . NG/ML 1.83-23.90 POSTMENOPAUSAL . . . . . . . . . . NG/ML <0.20 1ST TRIMESTER. . . . . . . . . . . NG/ML 11.00-44.30 2ND TRIMESTER. . . . . . . . . . . NG/ML 25.40-83.30 3RD TRIMESTER. . . . . . . . . . . NG/ML 58.70-214.00 [id number] 04:53:45* Test Item Value Reference Range Interpretation Comme nts PROLACTIN (test code = 2800) 7.0 NG/ML 5.0-37.0 NOTE: Methodolog y is Gianna Blanca Electrochemiluminescence Immunoassay (ECLIA). Values obtained with different assays/manufacturers cannot be used interchangeably. Results should not be used as sole basis to establish the presence or absence of malignancy. CBC W/AUTO DIFF WITH [id number] 02:04:28* Test Item Value Reference Range Interpretation Comme nts WBC (test code = 1001) 6.7 K/UL 3.5-11.0 RBC (test code = 1002) 4.43 M/UL 3.80-5.40 HEMOGLOBIN (test code = 1003) 8.6 G/DL 11.5-15.5 L HEMATOCRIT (test code = 1004) 29.8 % 34.0-45.0 L MCV (test code = 1005) 67.3 fL 80.0-99.0 L MCH (test code = 1006) 19.4 PG 25.0-33.0 L MCHC (test code = 1007) 28.9 G/DL 31.0-36.0 L RDW (test code = 1038) 17.8 % 11.5-15.0 H NEUTROPHILS (test code = 1008) 65.2 % LYMPHOCYTES (test code = 1010) 28.0 % MONOCYTES (test code = 1011) 6.1 % EOSINOPHILS (test code = 1012) 0.3 % BASOPHILS (test code = 1013) 0.3 % IMMATURE GRANULOCYTES (test code = 1036) 0.1 % NUCLEATED RBCS (test code = 1065) 0.0 /100 WBC'S See_Comment [Automated [employer]] The system which generated this result transmitted reference range: 0.0. The reference range was not used to interpret this result as normal/abnormal. PLATELET COUNT (test code = 1015) 580 K/UL 130-400 H ABSOLUTE NEUTROPHILS (test code = 1066) 4.39 K/UL 1.50-7.50 ABSOLUTE LYMPHOCYTES (test code = 1067) 1.89 K/UL 1.00-4.00 ABSOLUTE MONOCYTES (test code = 1068) 0.41 K/UL 0.20-1.00 ABSOLUTE EOSINOPHILS (test code = 1040) 0.02 K/UL 0.00-0.50 ABSOLUTE BASOPHILS (test code = 1069) 0.02 K/UL 0.00-0.20 ABS IMMATURE GRANULOCYTES (test code = 1020) 0.01 K/UL 0.00-0.10 ABS NUCLEATED RBCS (test code = 86521) 0.00 K/UL 0.00-0.11 [id number] 00:00:00* Test Item Value Reference Range Interpretation Comme nts PROLACTIN (test code = 2800) 7.0 NG/ML Devang [id number] 00:00:00* Test Item Value Reference Range Interpretation Comme nts TESTOSTERONE (test code = 2830) 38 NG/DL Devang BrownCBC W/AUTO [id number] 00:00:00* Test Item Value Reference Range Interpretation Comme nts WBC (test code = 1001) 6.7 K/UL RBC (test code = 1002) 4.43 M/UL HEMOGLOBIN (test code = 1003) 8.6 G/DL HEMATOCRIT (test code = 1004) 29.8 % MCV (test code = 1005) 67.3 fL MCH (test code = 1006) 19.4 PG MCHC (test code = 1007) 28.9 G/DL RDW (test code = 1038) 17.8 % NEUTROPHILS (test code = 1008) 65.2 % LYMPHOCYTES (test code = 1010) 28.0 % MONOCYTES (test code = 1011) 6.1 % EOSINOPHILS (test code = 1012) 0.3 % BASOPHILS (test code = 1013) 0.3 % IMMATURE GRANULOCYTES (test code = 1036) 0.1 % NUCLEATED RBCS (test code = 1065) 0.0 /100WBC'S PLATELET COUNT (test code = 1015) 580 K/UL ABSOLUTE NEUTROPHILS (test c ode = 1066) 4.39 K/UL ABSOLUTE LYMPHOCYTES (test c ode = 1067) 1.89 K/UL ABSOLUTE MONOCYTES (test cod e = 1068) 0.41 K/UL ABSOLUTE EOSINOPHILS (test c ode = 1040) 0.02 K/UL ABSOLUTE BASOPHILS (test cod e = 1069) 0.02 K/UL ABS IMMATURE GRANULOCYTES (t est code = 1020) 0.01 K/UL ABS NUCLEATED RBCS (test cod e = 68111) 0.00 K/UL Devang [id number] 00:00:00* Test Item Value Reference Range Interpretation Comme nts TSH, THIRD GENERATION (test code = 2821) 1.940 UIU/ML Devang BrownFSH + LH [id number] 00:00:00* Test Item Value Reference Range Interpretation Comme nts FOLLICLE STIM HORMONE (test code = 2700) 16.6 IU/L LUTEINIZING HORMONE (test co de = 2776) 8.7 IU/L Devang [id number] 00:00:00* Test Item Value Reference Range Interpretation Comme nts ESTRADIOL (test code = 2505) 36.6 PG/ML Devang [id number] 00:00:00* Test Item Value Reference Range Interpretation Comme nts PROGESTERONE (test code = 2790) 0.23 NG/ML Devang [id number] 00:00:00* Test Item Value Reference Range Interpretation Comme nts PROLACTIN (test code = 2800) 7.0 NG/ML Devang [id number] 00:00:00* Test Item Value Reference Range Interpretation Comme nts TESTOSTERONE (test code = 2830) 38 NG/DL Devang BrownCBC W/AUTO [id number] 00:00:00* Test Item Value Reference Range Interpretation Comme nts WBC (test code = 1001) 6.7 K/UL RBC (test code = 1002) 4.43 M/UL HEMOGLOBIN (test code = 1003) 8.6 G/DL HEMATOCRIT (test code = 1004) 29.8 % MCV (test code = 1005) 67.3 fL MCH (test code = 1006) 19.4 PG MCHC (test code = 1007) 28.9 G/DL RDW (test code = 1038) 17.8 % NEUTROPHILS (test code = 1008) 65.2 % LYMPHOCYTES (test code = 1010) 28.0 % MONOCYTES (test code = 1011) 6.1 % EOSINOPHILS (test code = 1012) 0.3 % BASOPHILS (test code = 1013) 0.3 % IMMATURE GRANULOCYTES (test code = 1036) 0.1 % NUCLEATED RBCS (test code = 1065) 0.0 /100WBC'S PLATELET COUNT (test code = 1015) 580 K/UL ABSOLUTE NEUTROPHILS (test c ode = 1066) 4.39 K/UL ABSOLUTE LYMPHOCYTES (test c ode = 1067) 1.89 K/UL ABSOLUTE MONOCYTES (test cod e = 1068) 0.41 K/UL ABSOLUTE EOSINOPHILS (test c ode = 1040) 0.02 K/UL ABSOLUTE BASOPHILS (test cod e = 1069) 0.02 K/UL ABS IMMATURE GRANULOCYTES (t est code = 1020) 0.01 K/UL ABS NUCLEATED RBCS (test cod e = 90503) 0.00 K/UL Devang [id number] 00:00:00* Test Item Value Reference Range Interpretation Comme nts TSH, THIRD GENERATION (test code = 2821) 1.940 UIU/ML Devang BrownFSH + LH [id number] 00:00:00* Test Item Value Reference Range Interpretation Comme nts FOLLICLE STIM HORMONE (test code = 2700) 16.6 IU/L LUTEINIZING HORMONE (test co de = 2776) 8.7 IU/L Devang [id number] 00:00:00* Test Item Value Reference Range Interpretation Comme nts ESTRADIOL (test code = 2505) 36.6 PG/ML Devang Davis [id number] 00:00:00* Test Item Value Reference Range Interpretation Comme nts PROGESTERONE (test code = 2790) 0.23 NG/ML Devang Davis [id number] 00:00:00* Test Item Value Reference Range Interpretation Comme nts PROLACTIN (test code = 2800) 7.0 NG/ML Devang Davis [id number] 00:00:00* Test Item Value Reference Range Interpretation Comme nts TESTOSTERONE (test code = 2830) 38 NG/DL Devang BrownCBC W/AUTO [id number] 00:00:00* Test Item Value Reference Range Interpretation Comme nts WBC (test code = 1001) 6.7 K/UL RBC (test code = 1002) 4.43 M/UL HEMOGLOBIN (test code = 1003) 8.6 G/DL HEMATOCRIT (test code = 1004) 29.8 % MCV (test code = 1005) 67.3 fL MCH (test code = 1006) 19.4 PG MCHC (test code = 1007) 28.9 G/DL RDW (test code = 1038) 17.8 % NEUTROPHILS (test code = 1008) 65.2 % LYMPHOCYTES (test code = 1010) 28.0 % MONOCYTES (test code = 1011) 6.1 % EOSINOPHILS (test code = 1012) 0.3 % BASOPHILS (test code = 1013) 0.3 % IMMATURE GRANULOCYTES (test code = 1036) 0.1 % NUCLEATED RBCS (test code = 1065) 0.0 /100WBC'S PLATELET COUNT (test code = 1015) 580 K/UL ABSOLUTE NEUTROPHILS (test c ode = 1066) 4.39 K/UL ABSOLUTE LYMPHOCYTES (test c ode = 1067) 1.89 K/UL ABSOLUTE MONOCYTES (test cod e = 1068) 0.41 K/UL ABSOLUTE EOSINOPHILS (test c ode = 1040) 0.02 K/UL ABSOLUTE BASOPHILS (test cod e = 1069) 0.02 K/UL ABS IMMATURE GRANULOCYTES (t est code = 1020) 0.01 K/UL ABS NUCLEATED RBCS (test cod e = 84798) 0.00 K/UL Devang [id number] 00:00:00* Test Item Value Reference Range Interpretation Comme nts TSH, THIRD GENERATION (test code = 2821) 1.940 UIU/ML Devang BrownFSH + LH [id number] 00:00:00* Test Item Value Reference Range Interpretation Comme nts FOLLICLE STIM HORMONE (test code = 3990) 16.6 IU/L LUTEINIZING HORMONE (test co de = 9436) 8.7 IU/L Devang [id number] 00:00:00* Test Item Value Reference Range Interpretation Comme nts ESTRADIOL (test code = 2505) 36.6 PG/ML Devang Davis [id number] 00:00:00* Test Item Value Reference Range Interpretation Comme nts PROGESTERONE (test code = 2790) 0.23 NG/ML Devang Davis [id number] 00:00:00* Test Item Value Reference Range Interpretation Comme nts PROLACTIN (test code = 2800) 7.0 NG/ML Devang Davis [id number] 00:00:00* Test Item Value Reference Range Interpretation Comme nts TESTOSTERONE (test code = 2830) 38 NG/DL Devang Davis [id number] 00:00:00* Test Item Value Reference Range Interpretation Comme nts PROGESTERONE (test code = 2790) 0.23 NG/ML Devang BrownCBC W/AUTO [id number] 00:00:00* Test Item Value Reference Range Interpretation Comme nts WBC (test code = 1001) 6.7 K/UL RBC (test code = 1002) 4.43 M/UL HEMOGLOBIN (test code = 1003) 8.6 G/DL HEMATOCRIT (test code = 1004) 29.8 % MCV (test code = 1005) 67.3 fL MCH (test code = 1006) 19.4 PG MCHC (test code = 1007) 28.9 G/DL RDW (test code = 1038) 17.8 % NEUTROPHILS (test code = 1008) 65.2 % LYMPHOCYTES (test code = 1010) 28.0 % MONOCYTES (test code = 1011) 6.1 % EOSINOPHILS (test code = 1012) 0.3 % BASOPHILS (test code = 1013) 0.3 % IMMATURE GRANULOCYTES (test code = 1036) 0.1 % NUCLEATED RBCS (test code = 1065) 0.0 /100WBC'S PLATELET COUNT (test code = 1015) 580 K/UL ABSOLUTE NEUTROPHILS (test c ode = 1066) 4.39 K/UL ABSOLUTE LYMPHOCYTES (test c ode = 1067) 1.89 K/UL ABSOLUTE MONOCYTES (test cod e = 1068) 0.41 K/UL ABSOLUTE EOSINOPHILS (test c ode = 1040) 0.02 K/UL ABSOLUTE BASOPHILS (test cod e = 1069) 0.02 K/UL ABS IMMATURE GRANULOCYTES (t est code = 1020) 0.01 K/UL ABS NUCLEATED RBCS (test cod e = 89271) 0.00 K/UL Devang [id number] 00:00:00* Test Item Value Reference Range Interpretation Comme nts PROLACTIN (test code = 2800) 7.0 NG/ML Devang [id number] 00:00:00* Test Item Value Reference Range Interpretation Comme nts TSH, THIRD GENERATION (test code = 2821) 1.940 UIU/ML Devang BrownFSH + LH [id number] 00:00:00* Test Item Value Reference Range Interpretation Comme nts FOLLICLE STIM HORMONE (test code = 2700) 16.6 IU/L LUTEINIZING HORMONE (test co de = 2776) 8.7 IU/L Devang [id number] 00:00:00* Test Item Value Reference Range Interpretation Comme nts ESTRADIOL (test code = 2505) 36.6 PG/ML Devang BrownRowxkhHYJEMKHLFTWY0669-10-07 00:00:00* Test Item Value Reference Range Interpretation Comme nts TESTOSTERONE (test code = 2830) 38 NG/DL Devang BrownCBC W/AUTO [id number] 00:00:00* Test Item Value Reference Range Interpretation Comme nts WBC (test code = 1001) 6.7 K/UL RBC (test code = 1002) 4.43 M/UL HEMOGLOBIN (test code = 1003) 8.6 G/DL HEMATOCRIT (test code = 1004) 29.8 % MCV (test code = 1005) 67.3 fL MCH (test code = 1006) 19.4 PG MCHC (test code = 1007) 28.9 G/DL RDW (test code = 1038) 17.8 % NEUTROPHILS (test code = 1008) 65.2 % LYMPHOCYTES (test code = 1010) 28.0 % MONOCYTES (test code = 1011) 6.1 % EOSINOPHILS (test code = 1012) 0.3 % BASOPHILS (test code = 1013) 0.3 % IMMATURE GRANULOCYTES (test code = 1036) 0.1 % NUCLEATED RBCS (test code = 1065) 0.0 /100WBC'S PLATELET COUNT (test code = 1015) 580 K/UL ABSOLUTE NEUTROPHILS (test c ode = 1066) 4.39 K/UL ABSOLUTE LYMPHOCYTES (test c ode = 1067) 1.89 K/UL ABSOLUTE MONOCYTES (test cod e = 1068) 0.41 K/UL ABSOLUTE EOSINOPHILS (test c ode = 1040) 0.02 K/UL ABSOLUTE BASOPHILS (test cod e = 1069) 0.02 K/UL ABS IMMATURE GRANULOCYTES (t est code = 1020) 0.01 K/UL ABS NUCLEATED RBCS (test cod e = 51149) 0.00 K/UL Devang [id number] 00:00:00* Test Item Value Reference Range Interpretation Comme nts TSH, THIRD GENERATION (test code = 2821) 1.940 UIU/ML Devang BrownFSH + LH [id number] 00:00:00* Test Item Value Reference Range Interpretation Comme nts FOLLICLE STIM HORMONE (test code = 2700) 16.6 IU/L LUTEINIZING HORMONE (test co de = 2776) 8.7 IU/L Devang [id number] 00:00:00* Test Item Value Reference Range Interpretation Comme nts ESTRADIOL (test code = 2505) 36.6 PG/ML Devang [id number] 00:00:00* Test Item Value Reference Range Interpretation Comme nts PROGESTERONE (test code = 2790) 0.23 NG/ML Devang Brown Notes Date/Time Note Provider Source 2025-07-12 10:45:00 Images from the original note were not included. Venipuncture collection performed by clean technique on the right anticubitus. Total of 1 attempts were made. Slight pressure and a bandage/dressing were applied to the site(s). The patient experienced no complications. The following specimens were processed according to instructions and sent to [facility] laboratories per lab order on 07/12/2025. LT BLUE SST 4 RED LAV 1 PPT DK GREEN (LiHep) DK GREEN (SodH) MCCRARY DK BLUE (K2) DK BLUE (S) ACD Blood Culture NIPT/NTD [facility] 2025-05-02 11:26:05 Received progress notes from Dr. Joanna Minor. Pt seen for a f/u visit for dx of left sided breast cancer. Placed in MD folder for review. Eboni Marcial [facility] 2025-04-17 15:13:32 Images from the original note were not included. Attempted to return call to patient. He BP looks ok. LVM notifying patient that her propanolol was sent to [facility] on 04/14 but to call again if she has any questions or concerns. Hellen Simms RN [facility] 2025-04-17 10:46:09 Copied from [facility] #[id number]. 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 Pt stated today her BP 104/76 HR 64. Pt also has questions about dosing for rx: propranoloL Pt stated she is out of Rx: propranoloL [phone] Shalonda Ngo [facility] 2025-04-14 16:54:45 Images from the original note were not included. Per encounter 04/03/25 Meets [facility] guidelines for refills. Requested Prescriptions Signed Prescriptions Disp Refills propranoloL 40 mg tablet 120 tablet 5 Sig: Take 2 tablets by mouth in the morning and 2 tablets in the evening. Authorizing Provider: MENDOZA GO Ordering User: HARLEEN العراقي Harleen العراقي RN [facility] 2025-04-13 10:46:35 Devika Gomez is a 49 year old female Pt is calling and is asking if she can have a refill on RX propranoloL 40 mg tablet . Pt states that she only has enough medication to last her till Thursday and will be completely out on Thursday. Pt asking if nurse Hellen can call her back. Please advise RX propranoloL [address] [facility] [address] [place] [address] Mulu Spence [facility] 2025-04-04 16:27:37 Received lab results from [facility] via fax. Placed in MD folder for review. Eboni Marcial [facility] 2025-04-04 08:39:30 Spoke with patient. She is agreeable with the recommended medication changes. She does not get labs through her PCP but she does with her oncologist. She is going to have them fax a metabolic panel to Dr. Go. Patient has been educated about the importance of monitoring labs while taking HCTZ. She verbalized understanding. T [facility] 2025-04-03 17:24:14 Increase propranolol to 80 mg BID. She can restart HCTZ 25 mg daily. Since we don't have labs on her. She can get it from PCP. Otherwise we needs BMP. T [facility] 2025-04-03 15:44:42 Due to low BP, cannot start diuretics. Let's get BP up first. If not comfortable, come to ER. [facility] 2025-04-03 14:00:41 Spoke with patient. She verbalized understanding of recommendations. She was concerned that she is retaining fluid. She states her hands appear swollen and her knee was swollen. She is concerned since HCTZ was discontinued. Will route to Dr. Go to advise on patient's concern. [facility] 2025-04-03 13:35:35 Increase propranolol to 80 mg BID and monitor closely [facility] 2025-04-03 13:20:32 Devika Gomez is a 49 year old female Pt called stating her blood pressure has been higher than when she was on her former rx. States this morning was 142/104. Right before she called she checked again and BP was 160/106. Please call back and advise. Macy Nieto [facility] 2025-03-30 16:34:49 Returned call. Patient reports blood pressure is now normal as listed below. She states she has been taking naproxen for bone pain and a new medication for her thyroid. Pt would like to know if she should still switch from metoprolol to propranolol. Informed patient to stop metoprolol d/t thyroid issues and start propanolol. Patient verbalized understanding. Harleen العراقي RN [facility] 2025-03-30 16:10:43 Pt would like to speak to a nurse again about her BP. Please Assist Mell Zapata [facility] 2025-03-28 13:24:20 Called pharmacy, they cancelled the metoprolol. Hellen Simms RN [facility] 2025-03-28 09:34:24 Please advise Pharmacy comment: teresa rowland is taking metoprolol as well, should one of these be d/c? Thank you Shalonda Shaw MA 03/28/2025 9:34 AM Shalonda Shaw MA [facility] 2025-03-24 14:57:03 Patient notified of medication recommendations. She is agreeable. Patient states her lisinopril is not covered. Reviewed chart, appears insurance will only cover one tablet per day. Will resend as 40 mg 1/2 tab twice daily. [facility] 2025-03-24 14:21:00 Due to thyroid issues, stop metoprolol and start propranolol 40 mg twice daily. Titrate based on blood pressure response. [facility] 2025-03-24 13:39:56 Patient reports the follow recent BP readings. 03/19 146/97 AM 155/105 PM 03/20 135/100 AM 129/100 PM 03/21 141/110 PM 03/22 148/112 AM 142/107 PM 03/23 139/90 AM 143/86 PM 03/24 149/100 AM Currently taking lisinopril 20 mg twice a day Reinforced need for sleep evaluation, given Dr Go's previous recommendations. Patient declined sleep study she stated she has too many things going on right now, she was recently diagnosed with high thyroid levels(started medications 3 days ago) and meningiomas. Forwarding message to Dr. Go for review. Harleen العراقي RN [facility] 2025-03-24 13:08:38 Pt would like to speak to a nurse in regards to her BP. It has been high. Pt has had some headaches. Please Assist Mell Zapata [facility] Devang Contreras [facility]2025-05-15 00:00:00 [facility] 14:22:53 Images from the original note were not included. PA initiated via CoverMyMeds, awaiting decision. Harleen العراقي RNOhioHealth Doctors HospitalDbbevm8444-54-64 16:35:29 Patient informed of provider's recommendations. Patient stated she will continue with metoprolol as she believes her elevated BP is related to her bone pain. She will resume her gabapentin and call back if her BP remains elevated. Harleen العراقي RNOhioHealth Doctors HospitalSzakvr1901-24-82 15:05:42 She has severe sleep apnea which can cause high blood pressure which is hard to control. She did not want to get CPAP. If she is agreeable, we can stop metoprolol and try Coreg 6.25 mg twice daily and titrate based on blood pressure and heart rate. [facility] HospitalFkgvua6108-37-58 14:10:01 Blood pressure readings since increasing Lisinopril to 20mg bid on 02/15/25. AM PM 02/16 128/92 132/91 02/17 137/101 122/89 02/18 118/92 100/72 02/19 122/89 118/88 02/20 128/88 117/97 02/21 121/87 Pt is concerned that the metoprolol is not working or having the opposite effect of keeping her bp elevated, and would like Dr. Go response on this. Pts hr has been 70's-80's Will forward to Dr. Go for review. Pilar Magaña [facility] HealthUozdyt5144-54-08 13:39:37 Refill for increased dose of Lisinopril forwarded to Christina GARCIAS [facility] HospitalLlwgls2557-24-76 13:22:47 Devika Gomez is a 49 year old female Pt states she was told to make 2 10mg in the AM and 2 10 mg in PM per nurse. Bottle states 1 in AM and 1 in PM. I show this on my end as well. She says she is out of mediation and needs more lisinopriL (ZESTRIL) 10 mg tablet Says she isnt sure if the dosage is working because her blood pressure is still high Please advise Madelin MirzaOhioHealth Doctors HospitalSxhqas2956-52-76 13:51:57 Patient wanted to confirm she is to take lisinopril 10 mg BID. Confirmed orders per Dr. Go. Patient instructed to send BP log if she has concerns regarding BP. [facility] HospitalEsxyxg9587-83-34 10:35:11 Pt is calling in about her medication Lisinopril. Please Assist Mell ZapataNicole [place] 446165-04-18 10:58:38 Addended by: HARLEEN العراقي on: 02/10/2025 10:58 AM Modules accepted: Orders [place] [address]-04-18 10:56:29 Patient called to request refills for lisinopril 10 mg BID, she stated her headache has gone away and her SBP is 100-120, DBP 80s. eRX sent. Requested Prescriptions Signed Prescriptions Disp Refills lisinopriL (ZESTRIL) 10 mg tablet 30 tablet 5 Sig: Take 1 tablet by mouth in the morning and 1 tablet in the evening. Authorizing Provider: MENDOZA GO Ordering User: HARLEEN العراقي [place] [address]-04-18 09:25:10 Patient is wanting a call back for advice. Please call, thank you. [facility] Supriya GoodrichPriscilla [place] [address]-04-16 11:15:21 Patient informed of provider recommendations. Patient stated she will call back once she needs refills for lisinopril. [place] [address]-04-16 10:32:21 Increase lisinopril to 10 mg BID. I don't think her BP is causing all her symptoms. Probably from cancer treatment. Contact oncologist as we manage her BP. [place] [address]-04-16 10:09:03 Patient reports the following AM blood pressures with symptoms of headaches and occasional vomiting. Thursday 124/100 Thursday 129/89 Thursday 137/99 Thursday 124/96 102- severe headache HR 70s, per patient. Denies stroke like symptoms, chest pains, palpitations, weakness. ROBINS is not relieved by tylenol/ibuprofen Patient stated she is compliant with lisinopril 5 mg QD, metoprolol tartrate 25 mg BID. Reports taking an additional 5 mg of lisinopril yesterday and she feels it did not help. Also mentioned she is about to finish radiation, is on immunotherapy, and was told her potassium was low at 3.2. Patient was prescribed KCL, but has not started the medication. Instructed patient to start KCL as low potassium could affect her heart. Forwarding to provider for review. [place] 446165-04-16 09:34:45 Devika Gomez is a 49 year old female Pt called and stated that the bottom number on her blood pressure readings have been high (upper 90's, 102) for the past week. She is also experiencing headaches. States provider switched medications. Please advise. Macy NietoNicole [place] 446165-02-17 12:12:28 Addended by: PILAR MAGAÑA on: 12/12/2024 12:12 PM Modules accepted: Orders [facility] Pilar Magaña [place] 408995-02-17 12:11:31 Pt will restart Lisinopril/HCTZ 10-12.5mg. pt wants to stop metoprolol, but will keep an eye on her heart rate. Med list updated [place] [id number] 11:48:18 Okay to restart lisinopril/hctz Metoprolol was started for tachycardia. I recommend to continue that. However if she wants to stop that is okay. [facility]2025-02-17 11:40:35 Pt denies cardiac symptoms, but is concerned about her recent bp readings as listed on her message. Pt is interested in switching back to her lisinopril/hctz. Will forward to Dr. Go for review and recommendations. [employer] SUPER[employer] Pilar Magaña [facility] HealthAfyjzo0009-50-03 10:22:10 Elevated BP x 3 days with no symptoms per pt Bp reading this morning 141/104, 145/87/88, Pt just check BP right now again at 10:27 AM 163/102/95. She stated it keeps fluctuating 12/11/24Thursday- 150/103 12/10/24Thursday- 154/100 Patient stated she does not believe metoprolol tartrate 25 mg tablet is working Patient asking to speak with a nurse. Please advise Y MeierOhioHealth Doctors HospitalBokigi2724-95-10 00:00:00 [facility] 09:18:32 Called patient and left a detailed voicemail regarding scheduling an appt with our sleep doctor. [facility]Reg[facility] CompanyLhlbaq5058-94-21 09:03:07 Images from the original note were not included. Pt notified of physician review from sleep study and that scheduling will be contacting her to schedule sleep medicine appt. Will forward to PSS to assist pt with sleep medicine appt Mendoza Go MD P Cardiology Nurse Please make an appointment with sleep clinic for obstructive sleep apnea. Y Magaña [facility] HealthHxofur8400-98-25 15:20:10 Patient has been contacted and scheduled [facility] Noemy CastilloJohanaAtrium Health [facility] CenterEyoyqs1586-98-46 14:50:25 Patient notified and is agreeable with the plan. Routing to [facility] for scheduling. [facility]2025-01-23 14:43:56 Stop lisinopril/HCTZ. Start metoprolol 25 mg twice daily. Watch blood pressure and pulse rate at home. Office follow-up in 1 month. [facility]2025-01-23 14:28:28 Per [facility] 11/09/2024, "Discussed switching blood pressure medications to beta-dominique. She wants to research on that before making decisions." [facility]2025-01-23 13:36:12 Devika Gomez is a 49 year old female calling, states medications were discussed at [facility] and that she has thought about it and would like to try new medication (metoprolol). Please advise [phone] (home) [facility] Shalonda NgoOhioHealth Doctors HospitalKoajop9376-66-26 14:20:00 Addended by: MENDOZA GO MD on: 11/23/2024 07:45 PM Modules accepted: Orders [facility]2024-12-10 00:00:00 [facility]2024-11-18 00:00:00 [facility]
--- NOTE | 2025-07-17 00:04 | ER ---
Nurse's Notes [facility] Name: Dodie Gomez Age: 49 yrs Sex: Female : 1975 Arrival Date: 07/16/2025 Time: 21:34 Bed 15 Private MD: Diagnosis: Bitten by cat;Puncture wound without foreign body of right thumb without damage to nail, initial encounter Presentation: 07/16 21:42 Chief complaint: Patient states: bit on right thumb by a stray cat around 19:00 today. me1 Concerned because WBC count has been low since December due to cancer treatment. Coronavirus screen: Vaccine status: Patient reports being unvaccinated. Ebola Screen: No symptoms or risks identified at this time. Initial Sepsis Screen: Does the patient meet any 2 criteria? No. Patient's initial sepsis screen is negative. Does the patient have a suspected source of infection? No. Patient's initial sepsis screen is negative. Risk Assessment: Do you want to hurt yourself or someone else? Patient reports no desire to harm self or others. Onset of symptoms was July 16, 2025 at 19:00. 21:42 Method Of Arrival[place] [facility] [place]:42 Acuity: MONIQUE 5 [facility] [place] T[place] Assessment: 21:46 Bite description: bite sustained to dorsal aspect of proximal phalanx of right thumb by me1 a cat, animal information: vaccination(s) is unknown, was sustained 2-4 hours ago. Animal status: stray. 07/17 00:26 General: Appears in no apparent distress. Behavior is calm, cooperative. 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 - Infectious Disease History:: Denies. - Social history:: Smoking status: Patient denies any tobacco usage or history of. Screenin/22 00:24 [facility] ED Fall Risk Assessment (Adult) History of falling in the last 3 months, kb4 including since admission No falls in past 3 months (0 pts) Confusion or Disorientation No (0 pts) Intoxicated or Sedated No (0 pts) Impaired Gait No (0 pts) Mobility Assist Device Used No (0 pt) Altered Elimination No (0 pt) Score/Fall Risk Level 0 - 2 = Low Risk. Abuse screen: Denies threats or abuse. Denies injuries from another. Nutritional screening: No deficits noted. Tuberculosis screening: No symptoms or risk factors identified. Assessment: 00:10 Reassessment: [place] police Dpt notified of incident, animal control unavailable due kb4 to it being after hours. 00:20 Reassessment: awaiting 15m post vaccination before leaving facility. kb4 00:21 Pain: Denies pain. Derm: Skin minimal redness to affected thumb Skin is pink, warm \T\ kb4 dry. Vital Signs: 07/16 21:42 BP 143 / 87; Pulse 66; Resp 17; Temp 98.2; Pulse Ox 100% ; Weight 69.4 kg; Height 5 ft. me1 4 in. ; Pain 0/10; 07/17 00:23 BP 123 / 65; Pulse 57; Resp 16; Pulse Ox 100% on R/A; kb4 07/16 21:42 Body Mass Index 26.26 (69.40 kg, 162.56 cm) me1 07/16 21:42 Pain Scale: Adult ct1 ED Course: 07/16 21:38 Patient arrived in ED. gm2 21:43 Triage completed. me1 21:46 Arm band placed on Patient placed in waiting room. me1 21:59 Maco Resendez PA-C is PHCP. cp 21:59 Jb Farris DO is Attending Physician. cp 23:04 XRAY Hand RIGHT 3 View In Process Unspecified. EDMS 23:32 Johanna Marcelo, DEMETRIUS is Primary Nurse. kb4 07/17 00:24 Patient has correct armband on for positive identification. Provided Education on: tdap kb4 vaccination . 00:24 No provider procedures requiring assistance completed. Patient did not have IV access kb4 during this emergency room visit. Administered Medications: 00:20 Drug: Boostrix Tdap IM 0.5 ml IM once; as a single dose Route: IM; Site: right deltoid; kb4 00:36 Follow up: Response: No adverse reaction kb4 00:20 Drug: Amoxicillin-Clavulanate PO 875 mg PO once Route: PO; kb4 00:28 Follow up: Response: No adverse reaction kb4 Medication: 00:25 Vaccine Information Statement (VIS) provided today. Questions and/or concerns kb4 addressed. VIS edition date: May 31, 2021. Outcome: 00:04 Discharge ordered by . olu 00:36 Discharged to home ambulatory, kb4 00:36 Condition: good 00:36 Discharge instructions given to patient, Instructed on discharge instructions, follow up and referral plans. medication usage, Demonstrated understanding of instructions, follow-up care, medications, Prescriptions given X 1, 00:37 Patient left the ED. kb4 Signatures: Dispatcher [employer] EDMS Maco Resendez PA-C PA-C cp Eddleman, Michelle, RN RN me1 Xin Gunter 2 Johanna Marcelo RN RN kb4 Corrections: (The following items were deleted from the chart) 07/16 21:46 21:42 Chief complaint: Patient states: bit on right thumb by a stray cat around 19:00 me1 today me1 07/17 00:28 00:27 Boostrix Tdap IM 0.5 ml IM in right deltoid kb4 kb4
--- NOTE | 2025-07-17 00:05 | EDPHYS ---
Physician Documentation [facility] Name: Dodie Gomez Age: 49 yrs Sex: Female : 1975 Arrival Date: 07/16/2025 Time: 21:34 Bed 15 Private MD: ED Physician Jb Farris HPI: 07/16 23:45 This 49 yrs old Female presents to ER via Ambulatory with complaints of Cat cp Bite. 23:45 The patient was bitten on the dorsal aspect of proximal phalanx of right thumb, by a cp cat, in an unprovoked manner, outdoors. Onset: The symptoms/episode began/occurred today. Animal information: Patient/Caregiver unable to provide information related to the animal. Secondary to the bite the patient reports multiple puncture wounds, that are superficial. Associated signs and symptoms: The patient has no apparent associated signs or symptoms. Severity of symptoms: in the emergency department the symptoms have improved, wound cleaned and topical antibiotic placed on wound at home. Patient reports stray cat around home bit right thumb unprovoked. 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 - Infectious Disease History:: Denies. - Social history:: Smoking status: Patient denies any tobacco usage or history of. ROS: 23:45 MS/extremity: Positive for bite, tenderness, of the dorsal aspect of proximal phalanx cp of right thumb, 23:45 Constitutional: Negative for body aches, chills, fever, poor PO intake, cp 23:45 Cardiovascular: Negative for chest pain, 23:45 Respiratory: Negative for cough, shortness of breath, wheezing, 23:45 Abdomen/GI: Negative for abdominal pain, vomiting, diarrhea, constipation, 23:45 All other systems are negative, Exam: 23:50 Constitutional: The patient appears in no acute distress, alert, awake, non-toxic, well cp developed, well nourished, 23:50 Head/Face: Normocephalic, atraumatic. cp 23:50 Chest/axilla: Inspection: normal, 23:50 Cardiovascular: Rate: normal, Rhythm: regular, 23:50 Respiratory: the patient does not display signs of respiratory distress, Respirations: normal, no use of accessory muscles, no retractions, labored breathing, is not present, Breath sounds: are clear throughout, no decreased breath sounds, 23:50 Abdomen/GI: Inspection: abdomen appears normal, 23:50 Musculoskeletal/extremity: Extremities: noted in the dorsal aspect of proximal phalanx of right thumb: superficial puncture [place] times 2, no active bleeding, very minimal swelling and edema, right thumb neurovascular intact, full AROM, 23:50 Neuro: Orientation: to person, place \T\ time. Mentation: is normal, Vital Signs: 21:42 BP 143 / 87; Pulse 66; Resp 17; Temp 98.2; Pulse Ox 100% ; Weight 69.4 kg; Height 5 ft. me1 4 in. ; Pain 0/10; 07/17 00:23 BP 123 / 65; Pulse 57; Resp 16; Pulse Ox 100% on R/A; kb4 07/16 21:42 Body Mass Index 26.26 (69.40 kg, 162.56 cm) me1 07/16 21:42 Pain Scale: Adult me1 MDM: 00:03 Data reviewed: vital signs, nurses notes, radiologic studies, plain films. cp 00:03 Differential diagnosis: vascular injury, rabies, cellulitis, fracture, foreign body. cp Independent interpretation of the following test(s) in the Emergency Department X-Ray: My interpretation is images of right hand negative for fracture and/or foreign body. Care significantly affected by the following chronic conditions: Hypertension, Cancer. Counseling: I had a detailed discussion with the patient and/or guardian regarding the historical points, exam findings, and any diagnostic results supporting the discharge/admit diagnosis, radiology results, the need for outpatient follow up, a family practitioner, to return to the emergency department if symptoms worsen or persist or if there are any questions or concerns that arise at home. ED course: VSS. Recommend contact with local animal control for rabies vaccine recommendation. discussed wound care and continued monitoring. rx for oral Augmentin given. will discharge to home for continued monitoring . 00:04 Medical Screening Exam initiated cp 07/16 22:20 Order name: XRAY Hand RIGHT 3 View cp Administered Medications: 00:20 Drug: Boostrix Tdap IM 0.5 ml IM once; as a single dose Route: IM; Site: right deltoid; kb4 00:36 Follow up: Response: No adverse reaction kb4 00:20 Drug: Amoxicillin-Clavulanate PO 875 mg PO once Route: PO; kb4 00:28 Follow up: Response: No adverse reaction kb4 Disposition: 18:43 Chart complete. cp 19:02 Co-signature as Attending Physician, Jb Farris DO I reviewed the patient's care tt7 provided by the Advanced Practice Provider and agree with the diagnosis and treatment plan. Disposition Summary: 07/17/25 00:04 Discharge Ordered Notes: Location: Home cp Problem: new cp Symptoms: have improved cp Condition: Stable cp Diagnosis - Bitten by cat cp - Puncture wound without foreign body of right thumb without damage to nail, initial cp encounter Followup: cp - With: Private Physician - When: 2 - 3 days - Reason: Wound Recheck Discharge Instructions: - Discharge Summary Sheet cp - Puncture Wound cp - Animal Bite, Adult cp Forms: - Medication Reconciliation Form cp - Antibiotic Education cp - Prescription Opioid Use cp - Patient Portal Instructions cp - Leadership Thank You Letter cp Prescriptions: - Augmentin 875-125 mg Oral Tablet - take 1 tablet ORAL route every 12 hours for 10 days; 20 tablet; Refills: 0, cp Product Selection Permitted Signatures: Dispatcher [employer] EDCA Maco Resendez PA-C PA-C cp Hyacinth Jiang RN RN me1 Johanna Marcelo RN RN kb4 Jb Farris DO DO tt7 Corrections: (The following items were deleted from the chart) 18:37 07/16 23:45 Patient reports stray cat around home bit left thumb unprovoked. cp cp
[2025-07-17] MEDS ORDERED: AMOX/K CLAV 875 MG TAB ONE (00:15)
[2025-07-17] MEDS ORDERED: TDAP (DIPHTH,PERTUSS(ACELL),TET VAC) 0.5 ML VIAL IMVAC ONE (00:16)
[2025-07-17 01:16] VITALS: TEMP 98.2; O2SAT 100
[2025-07-17 01:18] VITALS: BP 123/65
--- NOTE | 2025-07-17 05:45 | RAD REPORT ---
EXAM: XR Right Hand Complete, 3 or More Views CLINICAL HISTORY: Animal bite TECHNIQUE: Frontal, lateral and oblique views of the right hand. COMPARISON: No relevant prior studies available. FINDINGS: Bones/joints: Unremarkable. No acute fracture. No dislocation. Soft tissues: Unremarkable. No radiopaque foreign body. IMPRESSION: No acute injury. Electronically signed by: Krish Rockwell MD 07/16/2025 11:42 PM CDT RP Due to temporary technical issues with the PACS/Edyn reporting system, reports are being petra d by the in-house radiologist without review as a courtesy to ensure prompt reporting the interpreting radiologist is fully responsible for the content of the report. Transcribed Date/Time: 07/17/2025 5:45 AM
== END 2025-07-17 00:37 | disposition home or self-care (01) ==
LOC: ER 21:34
DX: S61.031A Puncture wound without foreign body of right thumb without damage to nail, initial encounter (principal); W55.01XA Bitten by cat, initial encounter; Z23 Encounter for immunization
CPT/HCPCS: 90715; 96372; 99284